=== PATIENT | male | born 1965 | race Caucasian/White ===

== ENCOUNTER → 2021-03-02 09:04 | Outpatient (BNVA) | payer OTHER, SELFPAY | PROVIDERS: PCP Student in an Organized Health Care Education/Training Program; Visit Provider Urology | DX: Z13.89 Encounter for screening for other disorder (principal) | CPT/HCPCS: 99202 ==

== ENCOUNTER → 2021-04-03 10:03 | Outpatient (BNVA) | payer OTHER, SELFPAY | PROVIDERS: PCP Student in an Organized Health Care Education/Training Program; Visit Provider Urology | DX: Z12.5 Encounter for screening for malignant neoplasm of prostate (principal); N52.01 Erectile dysfunction due to arterial insufficiency | CPT/HCPCS: 99212 ==

== ENCOUNTER → 2021-07-04 11:51 | Outpatient (BNVA) | payer OTHER, SELFPAY | PROVIDERS: PCP Student in an Organized Health Care Education/Training Program; Visit Provider Urology | DX: N52.01 Erectile dysfunction due to arterial insufficiency (principal) | CPT/HCPCS: 99212 ==

== ENCOUNTER 2022-03-29 13:19 | Outpatient (REF) | payer OTHER, SELFPAY | END 2022-03-29 13:20 | disposition home or self-care (01) | LOC: HO.LAB 13:19 | PROVIDERS: PCP Student in an Organized Health Care Education/Training Program; Visit Provider Urology | DX: Z12.5 Encounter for screening for malignant neoplasm of prostate (principal); N13.8 Other obstructive and reflux uropathy; N40.1 Benign prostatic hyperplasia with lower urinary tract symptoms | CPT/HCPCS: 36415; 84153 ==

== ENCOUNTER → 2022-04-12 15:52 | Outpatient (BNVA) | payer OTHER, SELFPAY | PROVIDERS: PCP Student in an Organized Health Care Education/Training Program; Visit Provider Urology | DX: Z13.89 Encounter for screening for other disorder (principal) ==

== ENCOUNTER → 2022-04-12 15:52 | Outpatient (BNVA) | payer OTHER, SELFPAY | PROVIDERS: PCP Student in an Organized Health Care Education/Training Program; Visit Provider Urology ==

== ENCOUNTER 2022-06-22 12:29 | Inpatient (IN) | payer OTHER, SELFPAY ==
--- NOTE | ~2022-06-22 | CT_ITS ---
EXAMINATION: CT ABDOMEN AND PELVIS WITH CONTRAST CLINICAL INFORMATION: Right upper quadrant/right lower quadrant pain. COMPARISON: None TECHNIQUE: Multidetector volumetric images were obtained from the superior aspect of the liver through the pubic symphysis following administration 85 mL of Omnipaque 350 intravenous contrast. Sagittal and coronal reformatted images were obtained on the technologist's workstation. Oral contrast: No This CT examination was performed using dose optimization techniques as appropriate, variously including the following: *Automated exposure control *Adjustment of mA and/or kV according to patient size (this includes techniques or standardized protocols for targeted exams where dose is matched to indication/reason for exam; i.e. extremities or head) *Use of iterative reconstruction technique DLP: 433 mGy-cm FINDINGS: LUNG BASES: Bibasilar atelectasis. The visualized cardiac structures are unremarkable. LIVER, GALLBLADDER, AND BILIARY TREE: The liver is normal in size, shape, and attenuation. Area of hypoattenuation along the falciform suggest focal fatty infiltration. No biliary ductal dilatation.. The gallbladder is unremarkable with no evidence of radiopaque gallstones, gallbladder wall thickening, or obvious pericholecystic inflammatory changes. PANCREAS: Unremarkable. SPLEEN: Unremarkable. ADRENAL GLANDS: Unremarkable. KIDNEYS AND URETERS: The kidneys are normal in size, shape, and attenuation. No hydronephrosis, hydroureter, or calculi seen. No perinephric stranding. BLADDER: Unremarkable. GASTROINTESTINAL TRACT: The stomach is unremarkable. Normal caliber small bowel. No obstruction. There is abnormal appearance of the appendix. The appendix measures 1.4 cm . Significant surrounding inflammation. There is free intraperitoneal air also present. No drainable fluid collection seen. The remainder of the colon is unremarkable. ABDOMINAL WALL: No significant hernia is appreciated. LYMPH NODES: Normal. VASCULAR: Normal caliber aorta with mild atherosclerotic calcification. PELVIC VISCERA: The prostate and seminal vesicles are unremarkable. OSSEOUS STRUCTURES: No acute or suspicious osseous abnormality. CT/CT abdomen pelvis w con IMPRESSION: Acute appendicitis. Associated perforation with free air present. Significant surrounding inflammation. This critical result was discussed with Luis Felipe Jones MD by telephone at 06/22/2022 11:30 PM and it was ascertained that the content and urgency of the report was understood at the time of direct communication. Fleischner guidelines were followed.
--- NOTE | ~2022-06-22 | CT_ITS ---
EXAMINATION: CT ABDOMEN AND PELVIS WITH CONTRAST CLINICAL INFORMATION: 57-year-old male with history of appendectomy for perforated appendicitis. COMPARISON: CT abdomen and pelvis from 06/22/2022. TECHNIQUE: Multidetector volumetric images were obtained from the superior aspect of the liver through the pubic symphysis following administration 85 mL of Omnipaque 350 intravenous contrast. Sagittal and coronal reformatted images were obtained on the technologist's workstation. Oral contrast: No This CT examination was performed using dose optimization techniques as appropriate, variously including the following: *Automated exposure control *Adjustment of mA and/or kV according to patient size (this includes techniques or standardized protocols for targeted exams where dose is matched to indication/reason for exam; i.e. extremities or head) *Use of iterative reconstruction technique DLP: 344 mGy-cm FINDINGS: LUNG BASES: Subsegmental atelectasis of lower lobes. LIVER: The liver has normal size, shape, and attenuation. No evidence of liver mass. GALLBLADDER AND BILIARY TREE: Gallbladder is without radiopaque stones, wall thickening or pericholecystic fluid. No dilated bile ducts. PANCREAS: Normal. No edema, pancreatic ductal dilatation or mass. SPLEEN: Normal. ADRENAL GLANDS: Normal. KIDNEYS AND URETERS: The kidneys have normal size and cortical thickness. No perinephric edema or fluid collection. Small amount of contrast has been excreted into the nondilated collecting systems. No urolithiasis or hydroureteronephrosis. BLADDER: Normal. No calculi or wall thickening. BOWEL AND PERITONEUM: Stomach is unremarkable. There is gas within the loops of small and large bowel, and small bowel measures up to 3.5 cm diameter. Findings are suggestive of mild ileus.. The appendix is surgically absent and drainage tube is positioned adjacent to the cecum. No pericecal fluid collection. A peripherally enhancing collection in the posterior cul-de-sac of the pelvis measures approximately 4 cm transverse, 2.6 cm AP and 3.2 cm craniocaudal. No pneumoperitoneum. ABDOMINAL WALL: Minimal protrusion of fat into the umbilicus. VASCULATURE: Atherosclerotic calcification of the abdominal aorta without aneurysm. LYMPH NODES: No pathologic sized lymph nodes in the abdomen or pelvis. No inguinal lymphadenopathy. PELVIC VISCERA: Unremarkable. SKELETAL: Unremarkable. CT/CT abdomen pelvis w con IMPRESSION: * Status post appendectomy. A 4 x 2.6 x 3.2 cm peripherally enhancing collection is present in the posterior cul-de-sac of the pelvis. This could represent a post-inflammatory collection or abscess. * Mild ileus.
[2022-06-22 13:20] VITALS: BP 122/69; PULSE 65; RESP 20; TEMP 36.7; O2SAT 97; BMI 22.4
[2022-06-22 20:24] LABS: Basophils Absolute Auto 0.1 X10*3/uL (0.0-0.2); Basophils Percent Auto 0.2 % (0-2); Eosinophils Absolute Auto 0.1 X10*3/uL (0.0-0.4); Eosinophils Percent Auto 0.2 % (0-4); Hematocrit 49.3 % (42.0-52.0); Hemoglobin 16.8 g/dl (14.0-18.0); Imm Gran Abs Auto 0.07 X10*3/uL (0.00-0.03); Imm Gran Pct Auto 0.3 % (0.0-0.4); Lymphocytes Percent Auto 10.1 % (20-40); MANUAL DIFF FLAG SCAN; Mean Corpuscular HGB Conc 34.1 g/dl (31.0-36.0); Mean Corpuscular Hemoglobin 29.9 pg (27.0-33.0); Mean Corpuscular Volume 87.9 fL (80.0-98.0); Mean Platelet Volume 10.7 fL (9.4-12.4); Monocytes Absolute Auto 1.9 X10*3/uL (0.1-1.2); Monocytes Percent Auto 9.6 % (2-11); Neutrophils Absolute Auto 15.9 x10*3/uL (2.0-8.3); Neutrophils Percent Auto 79.6 % (45-73); Platelet Count 199 X10*3/uL (160-400); Red Blood Count 5.61 X10*6/uL (4.60-5.80); Red Cell Distribution Width 15.1 % (11.0-16.0); SCAN SMEAR FLAG 1; White Blood Count 20.1 X10*3/uL (4.8-10.8)
[2022-06-22 20:25] LABS: Appearance Urine CLEAR; Color Urine YELLOW; Glucose Urine UA NEG (NEG); Leukocyte Esterase Urine NEG (NEG); Nitrite Urine NEG (NEG); Specific Gravity - Urine 1.015 (1.005-1.025); UACC Culture Trigger NO; Urine Blood 1+ (NEG); Urine Ketones NEG (NEG); Urine Protein NEG (NEG-TRACE)
[2022-06-22 20:38] LABS: Alanine Aminotransferase 12 U/L (0-40); Albumin Level 3.9 g/dL (3.5-5.0); Alkaline Phosphatase 92 U/L (39-117); Anion Gap 14 (12-20); Aspartate Amino Transferase 13 U/L (5-37); Bilirubin Total 0.8 mg/dL (0.0-1.0); Blood Urea Nitrogen 5 mg/dL (9-16); Calcium 8.8 mg/dL (8.4-10.2); Carbon Dioxide 25 mmol/L (22-29); Chloride 103 mmol/L (96-108); Creatinine Clr Calc Pharmacy 94.7; Estimated Glomerular Filt Rate > 60; Glucose Random 109 mg/dL (60-115); Lipase 5 U/L (8-78); Potassium 4.1 mmol/L (3.3-5.1); Sodium 138 mmol/L (135-145); Total Protein 6.6 g/dL (6.5-8.0)
[2022-06-22 20:48] LABS: Squamous Epithelial Cell Urine TRACE /LPF; WBC Urine 0 /HPF (0-4)
[2022-06-22 20:49] LABS: Amorphous Sediment Urine 1+ /LPF; Mucus Urine TRACE /LPF
[2022-06-22 20:50] LABS: SLIDE REVIEW VERIFIED
--- NOTE | 2022-06-22 22:03 | ED.ABDPAIN ---
HPI - Abdominal Pain General Chief Complaint: Abdominal Pain Stated Complaint: abd pain/dizziness/chills Time Seen by Provider: 06/22/22 21:14 Source: patient Mode of arrival: ambulatory Limitations: language barrier (Occitan speaking only) History of Present Illness HPI narrative: 57-year-old male who presents emergency department for evaluate of abdominal pain which began yesterday at 09:30 hours. Patient states that he woke up yesterday morning at 07:00 hours and felt fine, had some coffee and ate no breakfast. He states that at 09:30 hours he had a gradual onset of upper abdominal pain. He states the pain has been a constant, burning sensation since onset, the pain got progressively worse and is now 10/10. He states this is 1st episode of this type of abdominal pain. He states he was able to eat lunch and dinner yesterday but has had no appetite today. He has been drinking fluid throughout the day. States that his last bowel movement was 3 days prior and was normal. He denied frequency, urgency or dysuria. He states that he had shaking chills, he has had an occasional cough when he smokes cigarettes. The patient states that he had a myocardial infarction 04/30/2022 and was treated at [facility]. Related Data Home Medications Medication Instructions Recorded Confirmed calcium carbonate 500 mg-vitamin 1 tab PO BID 03/02/21 07/04/21 D3 5 mcg (200 unit) tablet Previous Rx's Medication Instructions Recorded tadalafil 5 mg tablet 5 mg PO DAILY PRN sexual activity 07/04/21 90 days #90 tabs Allergies Allergy/AdvReac Type Severity Reaction Status Date / Time No Known Allergies Allergy Verified 07/04/21 11:52 none Allergy Unknown Unknown Uncoded 04/03/21 10:26 Review of Systems Review of Systems Yes all other systems are reviewed and are negative FOR[facility]LY [facility], [facility] Past Medical History FOR[facility], [facility] Narrative: Past medical history: Myocardial infarction 04/30/2022-treated at [facility]. Past surgical history: None. Social history: He smokes 1/2 pack of cigarettes per day times 46 years. Denies alcohol use. He states that he smokes marijuana occasionally denies any other drug use. Medical History (Updated 06/23/22 @ 00:03 by Lius Felipe Jones MD) Tobacco abuse Family History Family History Father Prostate cancer Social History Social History Advance Directives: No Advance Directives Information Provided: No Physical Exam ED Vital Signs: Vital Signs - 24 hr 06/22/22 13:20 06/22/22 22:19 06/22/22 22:28 Temperature 98.1 F 98.4 F Pulse Rate 65 61 Respiratory Rate 20 18 16 Blood Pressure 122/69 101/47 L Pulse Oximetry 97 97 Oxygen Delivery Method Room Air Room Air BMI result Body Mass Index 22.4 Const Other: Awake, alert, male patient, pleasant, cooperative does not appear to be in distress, BMI 22.4 HENMT Head: Yes normal to inspection, Yes normocephalic and Yes atraumatic Ears: external ears normal General nose exam: Normal external nose present Face and sinus: Yes normal facial exam Mouth: Normal oral and palatal mucosa present Throat: Yes posterior oropharynx normal Eyes General: appearance normal, both eyes and all related structures Pupils: Equal, round and reactive pupils present Neck Neck: Yes normal visual inspection, Yes no lymphadenopathy, Yes trachea midline and Yes supple Chest Chest palpation & inspection: normal inspection of the chest and normal palpation of entire chest wall Resp Effort & Inspection: normal respiratory effort and able to speak in complete sentences Auscultation: clear to auscultation bilaterally Cardio Rate: regular rate Rhythm: regular rhythm Heart sounds: S1 normal heart sound present, S2 normal heart sound present and no murmurs GI Inspection: Yes normal to inspection Palpation (GI): Soft to palpation, Tenderness to palpation present (GI) (Mild diffuse tenderness) in the RLQ (Moderate) and in the RUQ (Moderate) and no guarding Auscultation: normal bowel sounds General: Yes no CVA tenderness Back/Spine/Pelvis Back: no CVA tenderness Skin General skin exam: no rashes or lesions noted Neuro Cranial nerves: Yes CN's II-XII intact bilaterally and Yes Equal, round and reactive pupils present Cognition (Neuro): normal cognition Motor exam (neuro): 5/5 motor strength present throughout Extrem General: Yes normal to inspection Psych Appearance: grossly normal Speech and movement: Normal speech and movement present Affect: normal affect Attitude: cooperative Thought process: Normal thought process present Thought content: Normal thought content present Course Course Course Narrative: 57-year-old male who presents emergency department for evaluation of gradual onset of abdominal pain which started yesterday at 09:30 hours, the pain progressed in severity it is now 10/10. Patient has been able to drink fluid but he has had no appetite and has had no food to eat today. Patient's examination did revealed mild diffuse abdominal tenderness with moderate right upper quadrant and left lower quadrant tenderness. Patient did have a laboratory evaluation [place] [address] otherwise was unremarkable. I did order a CT scan of the abdomen pelvis with IV contrast (given his low BMI help the contrast was indicated). Patient will be treated with normal saline IV x1 L. The patient was given Toradol 15 mg IV, morphine 4 mg IV and Zofran 4 mg IV for his pain. 2340: Radiology evaluation: CT scan of the abdomen pelvis with IV contrast radiology reading as follows: IMPRESSION: Acute appendicitis. Associated perforation with free air present. Significant surrounding inflammation. This critical result was discussed with Luis Felipe Jones MD by telephone at 06/22/2022 11:30 PM and it was ascertained that the content and urgency of the report was understood at the time of direct communication. Fleischner guidelines were followed. Dictated By:Anival Pineda MD I did discuss the patient's presentation, laboratory findings and CT scan findings with the covering surgeon, Dr. Ross and he will admit the patient to his service. Patient's pain did improve with the above treatment but is still present. Patient was ordered to get a another dose of morphine 4 mg IV. The patient did have myocardial infarction was treated at [facility]. We will attempt to get the records from [facility]. MDM - Abdominal Pain Lab Data Result diagrams: 06/22/22 20:16 06/22/22 20:16 Labs: Lab Results 06/22/22 06/22/22 06/22/22 Range/Units 20:16 20:16 20:16 WBC 20.1 H (4.8-10.8) X10*3/uL RBC 5.61 (4.60-5.80) X10*6/uL Hgb 16.8 (14.0-18.0) g/dl Hct 49.3 (42.0-52.0) % MCV 87.9 (80.0-98.0) fL MCH 29.9 (27.0-33.0) pg MCHC 34.1 (31.0-36.0) g/dl RDW 15.1 (11.0-16.0) % Plt Count 199 (160-400) X10*3/uL MPV 10.7 (9.4-12.4) fL Immature Gran % (Auto) 0.3 (0.0-0.4) % Neut % (Auto) 79.6 H (45-73) % Lymph % (Auto) 10.1 L (20-40) % [place] % (Auto) 9.6 (2-11) % Eos % (Auto) 0.2 (0-4) % Baso % (Auto) 0.2 (0-2) % Lymph # (Auto) 2.0 (1.2-4.9) X10*3/uL [place] # (Auto) 1.9 H (0.1-1.2) X10*3/uL Eos # (Auto) 0.1 (0.0-0.4) X10*3/uL Baso # (Auto) 0.1 (0.0-0.2) X10*3/uL Abs Immat Gran (auto) 0.07 H (0.00-0.03) X10*3/uL Absolute Neuts (auto) 15.9 H (2.0-8.3) x10*3/uL Absolute Nucleated RBC 0.000 (0.0-0.012) X10*3/uL Nucleated RBC % (auto) 0.0 (0.0-0.2) /100WBC Smear Tech's Comments VERIFIED Sodium 138 (135-145) mmol/L Potassium 4.1 (3.3-5.1) mmol/L Chloride 103 (96-108) mmol/L Carbon Dioxide 25 (22-29) mmol/L Anion Gap 14 (12-20) BUN 5 L (9-16) mg/dL Creatinine 0.77 (0.5-1.4) mg/dL Estim Creat Clear Calc 94.7 Estimated GFR > 60 Random Glucose 109 (60-115) mg/dL Calcium 8.8 (8.4-10.2) mg/dL Total Bilirubin 0.8 (0.0-1.0) mg/dL AST 13 (5-37) U/L ALT 12 (0-40) U/L Alkaline Phosphatase 92 (39-117) U/L Total Protein 6.6 (6.5-8.0) g/dL Albumin 3.9 (3.5-5.0) g/dL Lipase 5 L (8-78) U/L Urine Color YELLOW Urine Appearance CLEAR Urine pH 6.0 (5.0-8.0) Ur Specific [place] 1.015 (1.005-1.025) Urine Protein NEG (NEG-TRACE) MG/DL Urine Glucose (UA) NEG (NEG) MG/DL Urine Ketones NEG (NEG) MG/DL Urine Blood 1+ H (NEG) Urine Nitrite NEG (NEG) Ur Leukocyte Esterase NEG (NEG) Urine RBC 1-4 (0) /HPF Urine WBC 0 (0-4) /HPF Ur Squamous Epith Cells TRACE /LPF Amorphous Sediment 1+ /LPF Urine Bacteria NONE /LPF Urine Mucus TRACE /LPF Discharge Plan Discharge Clinical Impression: Perforated appendix Patient Disposition: Admitted As Inpatient
[2022-06-22 22:19] VITALS: RESP 18
[2022-06-22] MEDS: Ketorolac Tromethamine 15 MG/ML VIAL IVPUSH (22:19)
[2022-06-22] MEDS: ondansetron HCL 4 MG/2 ML VIAL IVPUSH (22:19)
[2022-06-22] MEDS: Morphine Sulfate 4 MG/ML CARTRIDGE IVPUSH (22:19)
[2022-06-22] MEDS: 0.9 % Sodium Chloride 1,000 ML 999 ML IV (22:20)
[2022-06-22 22:28] VITALS: BP 101/47; PULSE 61; RESP 16; TEMP 36.9; O2SAT 97
[2022-06-22] MEDS: iohexoL 350 MG/ML 100 ML INFUS..BTL IV (22:59)
--- NOTE | 2022-06-22 23:59 | PM.HPGS ---
History of Present Illness History of Present Illness Date of Service: 06/23/22 Chief complaint: appendicitis Narrative: Jamie Tesfaye is a 57 year old male with NM 2 months ago & cardiac cath at [facility] with acute appy, possibly perforated. The patient is seen with the help of 1 of the ER nurses who is a certified furniture duster. The patient reports abdominal pain that started roughly yesterday, possibly earlier and localized to the right side. He also notes his NM and that he is currently on aspirin given his stent. He denies any chest pain, difficulty breathing or shortness of breath. Review of Systems Review of Systems: Yes all other systems are reviewed and are negative Constitutional: Constitutional: Reports as per [facility] Past Medical History Medical History Tobacco abuse Family History Family History Father Prostate cancer Social History Social History Advance Directives: No Advance Directives Information Provided: No Meds Allergies Allergy/AdvReac Type Severity Reaction Status Date / Time No Known Allergies Allergy Verified 07/04/21 11:52 none Allergy Unknown Unknown Uncoded 04/03/21 10:26 Active Medications: Current Medications Acetaminophen (Acetaminophen 325 Mg Tablet) 650 mg PO Q6H PRN PRN Reason: Pain, Mild (Pain Scale 1-3) Heparin Sodium (Porcine) (Heparin Sodium,Porcine 5,000 Unit/Ml Vial) 5,000 unit SUBCUT Q12H [facility] Potassium Chloride/Sodium Chloride () 20 meq in 1,000 mls @ 100 mls/hr IVCONT .Q10H [facility] Home Medications Medication Instructions Recorded Confirmed Last Taken Type aspirin 81 mg tablet,delayed 1 tab PO DAILY 06/23/22 06/23/22 Unknown History release atorvastatin 40 mg tablet 1 tab PO DAILY 06/23/22 06/23/22 Unknown History calcium carbonate 500 mg-vitamin 1 tab PO BID 06/23/22 06/23/22 Unknown History D3 5 mcg (200 unit) tablet (Oyster Shell Calcium-Vitamin D3) carvedilol 6.25 mg tablet 1 tab PO BID 06/23/22 06/23/22 Unknown History clopidogrel 75 mg tablet 1 tab PO DAILY 06/23/22 06/23/22 Unknown History ferrous sulfate 325 mg (65 mg 1 tab PO QAM 06/23/22 06/23/22 Unknown History iron) tablet (FeroSul) multivitamin 1 tab PO DAILY 06/23/22 06/23/22 Unknown History nicotine 21 mg/24 hr daily 1 patch topical DAILY 06/23/22 06/23/22 Unknown History transdermal patch sacubitril 24 mg-valsartan 26 mg 1 tab PO BID 06/23/22 06/23/22 Unknown History tablet (Entresto) tadalafil 5 mg tablet 1 tab PO DAILY PRN Sexual Activity 06/23/22 06/23/22 Unknown History Physical Exam Vital Signs: Vital Signs: Last Vital Signs Temp 98.4 F 06/22/22 22:28 Pulse 61 06/22/22 22:28 Resp 16 06/22/22 22:28 BP 101/47 L 06/22/22 22:28 Pulse Ox 97 06/22/22 22:28 O2 Del Method 06/22/22 22:28 BMI result Body Mass Index 22.4 The patient is non-toxic & in good spirits NC/AT, PERRLA, EOMI Mood, affect & judgment all appear appropriate Sclera anicteric conjunctiva pink and moist Oropharynx is clear with no aphthous ulcers, Mallampati class 2, mucous membranes moist Neck is supple with no masses, adenopathy or bruits Thyroid is nontender and free of dominant masses Heart is regular, normal S1-S2 no rubs or murmurs Lungs are clear and equal anteriorly with no audible wheezing, rubs or dullness to percussion No CVA tenderness present Abdomen is overweight with no demonstrable hernias. He has right-sided abdominal pain with peritoneal irritation to percussion No HSM, rebound, rigidity, guarding, masses or bruits are present. Rectal exam is deferred Skin has good turgor and is free of rashes Extremities free of cyanosis clubbing edema Results Results Labs: Short CBC 06/22/22 Range/Units 20:16 WBC 20.1 H (4.8-10.8) X10*3/uL Hgb 16.8 (14.0-18.0) g/dl Hct 49.3 (42.0-52.0) % Plt Count 199 (160-400) X10*3/uL BMP 06/22/22 20:16 Sodium 138 Potassium 4.1 Chloride 103 Carbon Dioxide 25 BUN 5 L Creatinine 0.77 Calcium 8.8 Liver Function 06/22/22 Range/Units 20:16 Total Bilirubin 0.8 (0.0-1.0) mg/dL AST 13 (5-37) U/L ALT 12 (0-40) U/L Alkaline Phosphatase 92 (39-117) U/L Albumin 3.9 (3.5-5.0) g/dL Urine 06/22/22 Range/Units 20:16 Urine Color YELLOW Urine Appearance CLEAR Urine pH 6.0 (5.0-8.0) Ur Specific [place] 1.015 (1.005-1.025) Urine Protein NEG (NEG-TRACE) MG/DL Urine Glucose (UA) NEG (NEG) MG/DL Abdomen CT scan report/results: report reviewed and image reviewed CT scan - pelvis: report reviewed and image reviewed Assessment and Plan (1) Appendicitis: Status: Acute (2) CAD (coronary artery disease): Status: Acute (3) Tobacco abuse: Status: Acute Plan NPO, IVF, bowel rest, Abx For OR, lap appy in a.m.. Please obtain [facility] records re: NM SCDs, SQ heparin, Void bladder on-call to OR With the help of the furniture duster, I explained options for appendectomy versus medical management. The inherent risks of bleeding, for which she is at a greater risk because of his Plavix; infection, need for another procedure in the event of a complication or unexpected pathology; risk of cardiopulmonary compromise because of his recognized or unrecognized comorbidities were also reviewed. The patient seemed understand his options and was also offered that the furniture duster would reach the consent line by line, however he declined and gave informed consent to proceed. Quality Stroke Does the patient have a stroke diagnosis?: No VTE Prior VTE?: No VTE Risk Level:: Surgical - high VTE Device Contraindication: N/A - Device Ordered VTE Drug Contraindication: N/A - Med Ordered Procedures Date of Service Date of Service: 06/23/22
[2022-06-23] VITALS (14 sets, daily range): BP systolic 97–125; BP diastolic 56–72; PULSE 70–89; RESP 14–20; TEMP 36.9–37.4; O2SAT 92–97
[2022-06-23] MEDS: Morphine Sulfate 4 MG/ML CARTRIDGE IVPUSH (00:47)
[2022-06-23] MEDS: Heparin Sodium,Porcine 5,000 UNIT/ML VIAL 5000 UNIT SUBCUT (00:48)
[2022-06-23 03:05] LABS: COVID-19 Test Negative (Negative)
[2022-06-23] MEDS: Piperacillin Sodium/Tazobactam 4.5 GM in 0.9 % Sodium Chloride 100 ML IV (04:21)
[2022-06-23 04:25] LABS: MANUAL DIFF FLAG NO
[2022-06-23 04:26] LABS: Basophils Percent Auto 0.2 % (0-2); Eosinophils Percent Auto 0.2 % (0-4); Hematocrit 48.4 % (42.0-52.0); Hemoglobin 16.3 g/dl (14.0-18.0); Imm Gran Abs Auto 0.03 X10*3/uL (0.00-0.03); Imm Gran Pct Auto 0.3 % (0.0-0.4); Lymphocytes Absolute Auto 1.1 X10*3/uL (1.2-4.9); Mean Corpuscular HGB Conc 33.7 g/dl (31.0-36.0); Mean Corpuscular Hemoglobin 29.9 pg (27.0-33.0); Mean Corpuscular Volume 88.6 fL (80.0-98.0); Monocytes Absolute Auto 0.7 X10*3/uL (0.1-1.2); Monocytes Percent Auto 6.5 % (2-11); Neutrophils Percent Auto 82.8 % (45-73); Platelet Count 145 X10*3/uL (160-400); Red Blood Count 5.46 X10*6/uL (4.60-5.80); Red Cell Distribution Width 15.3 % (11.0-16.0); White Blood Count 10.9 X10*3/uL (4.8-10.8)
[2022-06-23] MEDS: HYDROmorphone HCl 0.5 MG/0.5 ML SYRINGE IVPUSH ×2 (04:28→15:37)
[2022-06-23 04:39] LABS: Lactic Acid 1.2 mmol/L (0.5-2.0)
[2022-06-23 04:47] LABS: Anion Gap 14 (12-20); Blood Urea Nitrogen 8 mg/dL (9-16); Calcium 8.2 mg/dL (8.4-10.2); Carbon Dioxide 22 mmol/L (22-29); Chloride 107 mmol/L (96-108); Creatinine Clr Calc Pharmacy 102.7; Estimated Glomerular Filt Rate > 60; Glucose Random 99 mg/dL (60-115); Potassium 4.3 mmol/L (3.3-5.1); Sodium 139 mmol/L (135-145)
--- NOTE | 2022-06-23 06:11 | PHA.MEDREC ---
Pharmacy Consult ? Medication Reconciliation Pharmacy has completed the medication reconciliation. Reviewed med rec completed by nursing.
--- NOTE | 2022-06-23 09:19 | MHC.CM.PN ---
CM MET WITH PT WITH THE ASSISTANCE OF [facility] INFORMATION ENGINEER PT REPORTS HE LIVES ALONE AND IS INDEPENDENT WITH CARE PT DENIES USE OF DME OR HOME SERVICES PT REPORTS HE IS COVID VACCINATED AND HAS HAD ONE BOOSTER PT CONFIRMS HIS PCP IS [facility] PT DOES NOT HAVE A HCP AND DECLINES TO COMPLETE ONE TODAY CURRENT DC PLAN IS HOME WITH NO SERVICES PT WILL ARRANGE TRANSPORT
--- NOTE | 2022-06-23 09:21 | P.OP_ITS ---
Operative Note Operative Note Date of Service: 06/23/22 Narrative: Preop diagnosis: [Appendicitis, possible perforated on CT] Postop diagnosis: [perforated appendicitis with interloop abscesses] Procedure: [laparoscopic appendectomy] Surgeon: Manoj Ross MD Assist: [none] Anesthesia: [GET; Ropivicaine 0.5%] Estimated blood loss: [3cc] Specimen: [1) peritoneal fluid; 2) appendix with gross perforation] Drain: KEREN in right iliac fossa & right gutter Intraoperative findings: [the appendix was partially retroperitoneal & perforated; turbid fluid with inflammatory peel was present in pelvis. Interloop abscess were lysed with blunt dissection & irrigation] Indications: [The patient is a 57-year-old gentleman who experienced an [place] and had a drug-eluting stent placed at [facility] in late April. He is on Plavix and aspirin and developed abdominal pain. He presented with a leukocytosis to [address] that was concerning for perforated appendicitis. He was admitted, placed on bowel rest and IV antibiotics and consented for appendectomy this morning with the help of an jumbo operator from the emergency department. The other option of transfer to [facility] or continued medical management was offered but declined by the patient. The inherent risks of bleeding, infection, need for open surgery, need for another procedure in the event of a surgical complication or unexpected pathology was all reviewed in seemed to be understood. The patient seemed to have his questions answered and also understand that his anticoagulants because of his stent put him at a greater risk for bleeding problems.] Procedure: [The patient was identified in the preoperative holding area and again in the operating room. An appropriate time-out was performed. The patient had voided bladder composition weatherboard installer, received subcu heparin and antibiotics per protocol. Sequential compression stockings were placed. The patient was induced in general endotracheal anesthesia administered with excellent effect. The abdomen was widely prepped and draped in the usual manner for surgery. Preemptive local was used at all trocar insertion sites. The abdomen was accessed using a Veress needle in the supraumbilical midline. Stab incision was made, Veress needle inserted without incident, an appropriate drop test performed and a pneumoperitoneum of 15 mmHg was obtained using carbon dioxide. Opening pressures were 6 mmHg. Next, the abdomen was accessed with a 30 degree/5 mm laparoscoped over Optiview trocar technique without incident. In examining the Veress needle, no evidence of injury was present. The remaining trocars were placed under direct laparoscopic vision with preemptive analgesia. The patient was then positioned in Trendelenburg, banked left. Grossly turbid peritoneal fluid was identified in the right pericolic gutter. This was aspirated using the suction equity research analyst and sent for Gram stain and culture. The appendix was identified and tracked down to the cecum, in the proximal appendix a perforation and fecalith were noted. The remain appendix dove retroperitoneally in the pelvis. A window was made in the mesoappendix and the mesoappendix carefully dissected using the 5 mm LigaSure [place] tip. An Endo-IRIS 30 stapler, purple load, was placed across the appendiceal base on the cecum the and fired with good hemostasis and closure. The specimen was placed in an Endo-Catch bag and delivered through the 12 mm port in the left lower quadrant. Operative field was irrigated and inspected for hemostasis which was good. A KEREN drain was placed through a right lower quadrant abdominal stab incision after it was cut to size and laid in the right iliac fossa, partially in the pelvis and partially in the right pericolic gutter. The remaining irrigation was aspirated. 2 L were required until the irrigant ran clear. Patient was returned to neutral position, the abdomen deflated and the trocars removed. 12 mm fascia was closed with 0- Polysorb and skin closed with 4-0 Monocryl subcuticular sutures. The abdomen was washed and dried, Mastisol and Steri-Stri ps applied followed by Band-Aids. Patient tolerated the procedure well and was sent to the recovery in stable condition. All sponge instrument counts were correct x2.
--- NOTE | 2022-06-23 12:06 | ECG_ITS ---
Test Reason : preop Blood Pressure : / mmHG Vent. Rate : 080 BPM Atrial Rate : 080 BPM P-R Int : 144 ms QRS Dur : 090 ms QT Int : 386 ms P-R-T Axes : 068 053 078 degrees QTc Int : 445 ms Normal sinus rhythm Minimal voltage criteria for LVH, may be normal variant ( [place] product ) Anterior infarct , age undetermined T wave abnormality, consider lateral ischemia T wave abnormality, consider anterior ischemia Abnormal ECG No previous ECGs available Clinical correlation required Referred By: Sandra Purcell Electronically Signed By:HOLLAND MARSH
--- NOTE | 2022-06-23 12:10 | P.CONAN_ITS ---
[facility] Active Problems Active Problems: All Active Problems (Updated 06/23/22 @ 00:03 by Luis Felipe Jones MD) Perforated appendix (Acute) Tobacco abuse (Acute) CAD (coronary artery disease) (Acute) Appendicitis (Acute) Screening PSA (prostate specific antigen) (Acute) Hypogonadism (Acute) Erectile dysfunction due to arterial insufficiency (Acute) Past Medical History Medical History Tobacco abuse Family History Family History Father Prostate cancer Family history of problems with anesthesia: No Surgical History History of Problems with Anesthesia: No Social History Social History Patient Tobacco Use Status: Current everyday Tobacco user Tobacco use type: Cigarette Cigarettes Per Day: 15.0 service: No Current occupational status: employed Meds Allergies Allergy/AdvReac Type Severity Reaction Status Date / Time No Known Allergies Allergy Verified 07/04/21 11:52 none Allergy Unknown Unknown Uncoded 04/03/21 10:26 Active Medications: Current Medications Acetaminophen (Acetaminophen 325 Mg Tablet) 650 mg PO Q6H PRN PRN Reason: Pain, Mild (Pain Scale 1-3) Atorvastatin Calcium (Atorvastatin Calcium 40 Mg Tablet) 40 mg PO DAILY DAKOTA Carvedilol (Carvedilol 6.25 Mg Tablet) 6.25 mg PO BID DAKOTA; Protocol Hydromorphone HCl (Hydromorphone Hcl 0.5 Mg/0.5 Ml Syringe) 0.5 mg IVPUSH Q2H PRN; Protocol PRN Reason: Pain, Severe (Pain Scale 7-10) Last Admin: 06/23/22 04:28 Dose: 0.5 mg Potassium Chloride/Sodium Chloride () 20 meq in 1,000 mls @ 100 mls/hr IVCONT .Q10H DAKOTA Last Admin: 06/23/22 01:00 Dose: 100 mls/hr Piperacillin Sod/Tazobactam (Sod 3.375 gm/ Sodium Chloride) 50 mls @ 100 mls/hr IV Q6H DAK[place] Ondansetron HCl (Ondansetron Hcl 4 Mg/2 Ml Vial) 4 mg IVPUSH Q6H PRN PRN Reason: Nausea and Vomiting Sacubitril/Valsartan (Sacubitril/Valsartan 24/ 1 Tab Tablet) 1 tab PO BID DAKOTA; Protocol Home Medications Medication Instructions Recorded Confirmed Last Taken Type aspirin 81 mg tablet,delayed 1 tab PO DAILY 06/23/22 06/23/22 Unknown History release atorvastatin 40 mg tablet 1 tab PO DAILY 06/23/22 06/23/22 Unknown History calcium carbonate 500 mg-vitamin 1 tab PO BID 06/23/22 06/23/22 Unknown History D3 5 mcg (200 unit) tablet (Oyster Shell Calcium-Vitamin D3) carvedilol 6.25 mg tablet 1 tab PO BID 06/23/22 06/23/22 Unknown History clopidogrel 75 mg tablet 1 tab PO DAILY 06/23/22 06/23/22 Unknown History ferrous sulfate 325 mg (65 mg 1 tab PO QAM 06/23/22 06/23/22 Unknown History iron) tablet (FeroSul) multivitamin 1 tab PO DAILY 06/23/22 06/23/22 Unknown History nicotine 21 mg/24 hr daily 1 patch topical DAILY 06/23/22 06/23/22 Unknown History transdermal patch sacubitril 24 mg-valsartan 26 mg 1 tab PO BID 06/23/22 06/23/22 Unknown History tablet (Entresto) tadalafil 5 mg tablet 1 tab PO DAILY PRN Sexual Activity 06/23/22 06/23/22 Unknown History Exam Exam Date and Time: June 23, 2022 1210 Height,Weight and Vital Signs: Height 5 ft 7 in Weight 64.864 kg Last Vital Signs Temp 98.8 F 06/23/22 11:10 Pulse 78 06/23/22 11:10 Resp 16 06/23/22 11:10 BP 114/63 06/23/22 11:10 Pulse Ox 95 06/23/22 11:10 O2 Del Method 06/23/22 11:10 Pertinent Lab Results Pertinent Lab Results: Laboratory Tests 06/22/22 06/22/22 06/22/22 20:16 20:16 20:16 WBC 20.1 H RBC 5.61 Hgb 16.8 Hct 49.3 MCV 87.9 MCH 29.9 MCHC 34.1 RDW 15.1 Plt Count 199 MPV 10.7 Immature Gran % (Auto) 0.3 Neut % (Auto) 79.6 H Lymph % (Auto) 10.1 L [place] % (Auto) 9.6 Eos % (Auto) 0.2 Baso % (Auto) 0.2 Lymph # (Auto) 2.0 [place] # (Auto) 1.9 H Eos # (Auto) 0.1 Baso # (Auto) 0.1 Abs Immat Gran (auto) 0.07 H Absolute Neuts (auto) 15.9 H Absolute Nucleated RBC 0.000 Nucleated RBC % (auto) 0.0 Smear Tech's Comments VERIFIED Sodium 138 Potassium 4.1 Chloride 103 Carbon Dioxide 25 Anion Gap 14 BUN 5 L Creatinine 0.77 Estim Creat Clear Calc 94.7 Estimated GFR > 60 Random Glucose 109 Lactic Acid Calcium 8.8 Total Bilirubin 0.8 AST 13 ALT 12 Alkaline Phosphatase 92 Total Protein 6.6 Albumin 3.9 Lipase 5 L Urine Color YELLOW Urine Appearance CLEAR Urine pH 6.0 Ur Specific [place] 1.015 Urine Protein NEG Urine Glucose (UA) NEG Urine Ketones NEG Urine Blood 1+ H Urine Nitrite NEG Ur Leukocyte Esterase NEG Urine RBC 1-4 Urine WBC 0 Ur Squamous Epith Cells TRACE Amorphous Sediment 1+ Urine Bacteria NONE Urine Mucus TRACE COVID-19 (RACHEL) COVID-19 Clin Com 06/23/22 06/23/22 06/23/22 02:46 04:16 04:16 WBC 10.9 H RBC 5.46 Hgb 16.3 Hct 48.4 MCV 88.6 MCH 29.9 MCHC 33.7 RDW 15.3 Plt Count 145 L D MPV 11.0 Immature Gran % (Auto) 0.3 Neut % (Auto) 82.8 H Lymph % (Auto) 10.0 L [place] % (Auto) 6.5 Eos % (Auto) 0.2 Baso % (Auto) 0.2 Lymph # (Auto) 1.1 L [place] # (Auto) 0.7 Eos # (Auto) 0.0 Baso # (Auto) 0.0 Abs Immat Gran (auto) 0.03 Absolute Neuts (auto) 9.0 H Absolute Nucleated RBC 0.000 Nucleated RBC % (auto) 0.0 Smear Tech's Comments Sodium 139 Potassium 4.3 Chloride 107 Carbon Dioxide 22 Anion Gap 14 BUN 8 L D Creatinine 0.71 Estim Creat Clear Calc 102.7 Estimated GFR > 60 Random Glucose 99 Lactic Acid Calcium 8.2 L D Total Bilirubin AST ALT Alkaline Phosphatase Total Protein Albumin Lipase Urine Color Urine Appearance Urine pH Ur Specific [place] Urine Protein Urine Glucose (UA) Urine Ketones Urine Blood Urine Nitrite Ur Leukocyte Esterase Urine RBC Urine WBC Ur Squamous Epith Cells Amorphous Sediment Urine Bacteria Urine Mucus COVID-19 (RACHEL) Negative COVID-19 Clin Com See Note 06/23/22 04:16 WBC RBC Hgb Hct MCV MCH MCHC RDW Plt Count MPV Immature Gran % (Auto) Neut % (Auto) Lymph % (Auto) [place] % (Auto) Eos % (Auto) Baso % (Auto) Lymph # (Auto) [place] # (Auto) Eos # (Auto) Baso # (Auto) Abs Immat Gran (auto) Absolute Neuts (auto) Absolute Nucleated RBC Nucleated RBC % (auto) Smear Tech's Comments Sodium Potassium Chloride Carbon Dioxide Anion Gap BUN Creatinine Estim Creat Clear Calc Estimated GFR Random Glucose Lactic Acid 1.2 Calcium Total Bilirubin AST ALT Alkaline Phosphatase Total Protein Albumin Lipase Urine Color Urine Appearance Urine pH Ur Specific [place] Urine Protein Urine Glucose (UA) Urine Ketones Urine Blood Urine Nitrite Ur Leukocyte Esterase Urine RBC Urine WBC Ur Squamous Epith Cells Amorphous Sediment Urine Bacteria Urine Mucus COVID-19 (RACHEL) COVID-19 Clin Com Airway Mallampati Class: II TM Dist: >3cm Neck ROM: Full Denture: Upper Assessment and Plan Assessment Anesthesia Assessment: Anesthesia Plan Discussed, Smoking Cess. Discussed and Chart Reviewed Final Anesthetic Review Family History of Problems with Anesthesia: No History of Problems with Anesthesia: No NPO: Yes ASA Class: III and Emergency Final Preanesthetic Review: No Changes in Pt Med Stat, Meds/Allgs Chart Reviewed, Consent Obtained/Reviewed and Anes Risks/Benef Reviewed Patient Risk: Intermediate Procedure Risk: Intermediate Anesthetic Plan Anesthetic Plan: GA Disposition: Standard PACU
--- NOTE | 2022-06-23 12:10 | HO.PM.IMCN ---
History of Present Illness Data of Consult Service Date: 06/23/22 Primary Care Provider: June Champion MD HPI Reason for consult: CAD 57yo M admitted to surgery service for perforated acute appendicitis, going to OR for emergent appendectomy. PMHx notable for anterior STEMI for which he was [place] [facility]. A BARBRA was placed for a 100% LAD occlusion. He was started on DAPT [ASA + clopidogrel]. Echo showed ischemic cardiomyopathy with reduced LVEF of 20-30%. He was started on Entresto and carvedilol for neurohormonal modulation. He quit using cocaine and was placed on nicotine replacement but continues to smoke 3/4 ppd. Currently denies chest pain, palpitations, lightheadedness, edema, or dyspnea. Endorses abd pain. Review of Systems Review of Systems: Yes all other systems are reviewed and are negative [facility] Medical History Cocaine abuse Coronary artery disease HFrEF (heart failure with reduced ejection fraction) Ischemic cardiomyopathy Tobacco abuse Family History Father Prostate cancer Social History Patient Tobacco Use Status: Current everyday Tobacco user Tobacco use type: Cigarette Cigarettes Per Day: 15.0 service: No Current occupational status: employed Meds Allergies Allergy/AdvReac Type Severity Reaction Status Date / Time No Known Allergies Allergy Verified 07/04/21 11:52 none Allergy Unknown Unknown Uncoded 04/03/21 10:26 Active Medications: Current Medications Acetaminophen (Acetaminophen 325 Mg Tablet) 650 mg PO Q6H PRN PRN Reason: Pain, Mild (Pain Scale 1-3) Atorvastatin Calcium (Atorvastatin Calcium 40 Mg Tablet) 40 mg PO DAILY DAKOTA Carvedilol (Carvedilol 6.25 Mg Tablet) 6.25 mg PO BID DAKOTA; Protocol Hydromorphone HCl (Hydromorphone Hcl 0.5 Mg/0.5 Ml Syringe) 0.5 mg IVPUSH Q2H PRN; Protocol PRN Reason: Pain, Severe (Pain Scale 7-10) Last Admin: 06/23/22 04:28 Dose: 0.5 mg Potassium Chloride/Sodium Chloride () 20 meq in 1,000 mls @ 100 mls/hr IVCONT .Q10H DAK[place] Last Admin: 06/23/22 01:00 Dose: 100 mls/hr Piperacillin Sod/Tazobactam (Sod 3.375 gm/ Sodium Chloride) 50 mls @ 100 mls/hr IV Q6H [place] Ondansetron HCl (Ondansetron Hcl 4 Mg/2 Ml Vial) 4 mg IVPUSH Q6H PRN PRN Reason: Nausea and Vomiting Sacubitril/Valsartan (Sacubitril/Valsartan / 1 Tab Tablet) 1 tab PO BID DAKTOA; Protocol Home Medications Medication Instructions Recorded Confirmed Last Taken Type aspirin 81 mg tablet,delayed 1 tab PO DAILY 06/23/22 06/23/22 Unknown History release atorvastatin 40 mg tablet 1 tab PO DAILY 06/23/22 06/23/22 Unknown History calcium carbonate 500 mg-vitamin 1 tab PO BID 06/23/22 06/23/22 Unknown History D3 5 mcg (200 unit) tablet (Oyster Shell Calcium-Vitamin D3) carvedilol 6.25 mg tablet 1 tab PO BID 06/23/22 06/23/22 Unknown History clopidogrel 75 mg tablet 1 tab PO DAILY 06/23/22 06/23/22 Unknown History ferrous sulfate 325 mg (65 mg 1 tab PO QAM 06/23/22 06/23/22 Unknown History iron) tablet (FeroSul) multivitamin 1 tab PO DAILY 06/23/22 06/23/22 Unknown History nicotine 21 mg/24 hr daily 1 patch topical DAILY 06/23/22 06/23/22 Unknown History transdermal patch sacubitril 24 mg-valsartan 26 mg 1 tab PO BID 06/23/22 06/23/22 Unknown History tablet (Entresto) tadalafil 5 mg tablet 1 tab PO DAILY PRN Sexual Activity 06/23/22 06/23/22 Unknown History Physical Exam Vital Signs and Narrative: Vital Signs: Last Vital Signs Temp 98.8 F 06/23/22 11:10 Pulse 78 06/23/22 11:10 Resp 16 06/23/22 11:10 BP 114/63 06/23/22 11:10 Pulse Ox 95 06/23/22 11:10 O2 Del Method 06/23/22 11:10 BMI result Body Mass Index 22.4 Gen: in no acute distress HEENT: sclera anicteric, moist mucus membranes Neck: supple Lungs: clear to auscultation bilaterally Heart: regular rate and rhythm, no murmurs Abd: soft, tender RLQ Ext: no edema Skin: warm/well-perfused Neuro: alert and oriented x3, no focal findings Psych: appropriate affect Results Labs CBC and Chem 7: 06/23/22 04:16 06/23/22 04:16 Labs: Laboratory Results - last 24 hr 06/22/22 06/22/22 06/22/22 20:16 20:16 20:16 MCV 87.9 MCH 29.9 MCHC 34.1 RDW 15.1 Plt Count 199 MPV 10.7 Immature Gran % (Auto) 0.3 Neut % (Auto) 79.6 H Lymph % (Auto) 10.1 L [place] % (Auto) 9.6 Eos % (Auto) 0.2 Baso % (Auto) 0.2 Lymph # (Auto) 2.0 [place] # (Auto) 1.9 H Eos # (Auto) 0.1 Baso # (Auto) 0.1 Abs Immat Gran (auto) 0.07 H Absolute Neuts (auto) 15.9 H Absolute Nucleated RBC 0.000 Nucleated RBC % (auto) 0.0 Smear Tech's Comments VERIFIED Anion Gap 14 Estim Creat Clear Calc 94.7 Estimated GFR > 60 Random Glucose 109 Lactic Acid Calcium 8.8 Total Bilirubin 0.8 AST 13 ALT 12 Alkaline Phosphatase 92 Total Protein 6.6 Albumin 3.9 Lipase 5 L Urine Color YELLOW Urine Appearance CLEAR Urine pH 6.0 Ur Specific [place] 1.015 Urine Protein NEG Urine Glucose (UA) NEG Urine Ketones NEG Urine Blood 1+ H Urine Nitrite NEG Ur Leukocyte Esterase NEG Urine RBC 1-4 Urine WBC 0 Ur Squamous Epith Cells TRACE Amorphous Sediment 1+ Urine Bacteria NONE Urine Mucus TRACE COVID-19 (RACHEL) COVID-19 Clin Com 06/23/22 06/23/22 06/23/22 02:46 04:16 04:16 MCV 88.6 MCH 29.9 MCHC 33.7 RDW 15.3 Plt Count 145 L D MPV 11.0 Immature Gran % (Auto) 0.3 Neut % (Auto) 82.8 H Lymph % (Auto) 10.0 L [place] % (Auto) 6.5 Eos % (Auto) 0.2 Baso % (Auto) 0.2 Lymph # (Auto) 1.1 L [place] # (Auto) 0.7 Eos # (Auto) 0.0 Baso # (Auto) 0.0 Abs Immat Gran (auto) 0.03 Absolute Neuts (auto) 9.0 H Absolute Nucleated RBC 0.000 Nucleated RBC % (auto) 0.0 Smear Tech's Comments Anion Gap 14 Estim Creat Clear Calc 102.7 Estimated GFR > 60 Random Glucose 99 Lactic Acid Calcium 8.2 L D Total Bilirubin AST ALT Alkaline Phosphatase Total Protein Albumin Lipase Urine Color Urine Appearance Urine pH Ur Specific [place] Urine Protein Urine Glucose (UA) Urine Ketones Urine Blood Urine Nitrite Ur Leukocyte Esterase Urine RBC Urine WBC Ur Squamous Epith Cells Amorphous Sediment Urine Bacteria Urine Mucus COVID-19 (RACHEL) Negative COVID-19 Clin Com See Note 06/23/22 04:16 MCV MCH MCHC RDW Plt Count MPV Immature Gran % (Auto) Neut % (Auto) Lymph % (Auto) [place] % (Auto) Eos % (Auto) Baso % (Auto) Lymph # (Auto) [place] # (Auto) Eos # (Auto) Baso # (Auto) Abs Immat Gran (auto) Absolute Neuts (auto) Absolute Nucleated RBC Nucleated RBC % (auto) Smear Tech's Comments Anion Gap Estim Creat Clear Calc Estimated GFR Random Glucose Lactic Acid 1.2 Calcium Total Bilirubin AST ALT Alkaline Phosphatase Total Protein Albumin Lipase Urine Color Urine Appearance Urine pH Ur Specific [place] Urine Protein Urine Glucose (UA) Urine Ketones Urine Blood Urine Nitrite Ur Leukocyte Esterase Urine RBC Urine WBC Ur Squamous Epith Cells Amorphous Sediment Urine Bacteria Urine Mucus COVID-19 (RACHEL) COVID-19 Clin Com Imaging Radiologist's Impressions: Impressions Abdomen/Pelvis CT 06/22/22 23:13 IMPRESSION: Acute appendicitis. Associated perforation with free air present. Significant surrounding inflammation. This critical result was discussed with Luis Felipe Jones MD by telephone at 06/22/2022 11:30 PM and it was ascertained that the content and urgency of the report was understood at the time of direct communication. Fleischner guidelines were followed. Assessment and Plan (1) CAD (coronary artery disease): Status: Acute Plan 57yo M admitted to surgery service for perforated acute appendicitis, going to OR for emergent appendectomy. PMHx notable for anterior STEMI for which he was [place] [facility]. A BARBRA was placed for a 100% LAD occlusion. He was started on DAPT [ASA + clopidogrel]. Echo showed ischemic cardiomyopathy with reduced LVEF of 20-30%. Medicine consult requested for management of comorbid conditions # CAD - resume DAPT as soon as deemed safe by surgeon. resume atorvastatin + carvedilol. # ischemic CM # chronic HFrEF - resume carvedilol + Entresto, monitor for fluid overload # tobacco abuse - NRT # cocaine abuse - in remission # VTE ppx - SCDs, LMWH when deemed safe by surgeon Thank you for this consultation. We will continue to follow along with you.
[2022-06-23] MEDS: Piperacillin Sodium/Tazobactam 3.375 GM in 0.9 % Sodium Chloride 50 ML IV ×2 (18:00→23:33)
[2022-06-23] MEDS: Docusate Sodium 100 MG CAPSULE 200 MG PO (20:24)
[2022-06-23] MEDS: carvediloL 6.25 MG TABLET PO (20:24)
[2022-06-23] MEDS: Sacubitril/Valsartan 24/26 1 TAB TABLET PO (20:24)
--- NOTE | 2022-06-24 | ECG_ITS ---
Test Reason : RIB PAIN Blood Pressure : / mmHG Vent. Rate : 087 BPM Atrial Rate : 087 BPM P-R Int : 156 ms QRS Dur : 086 ms QT Int : 370 ms P-R-T Axes : 029 002 -08 degrees QTc Int : 445 ms Normal sinus rhythm Minimal voltage criteria for LVH, may be normal variant ( R in aVL ) Borderline ECG When compared with ECG of 23-JUN-2022 12:10, ST-T wave changes have resolved Referred By: Win Lopez Electronically Signed By:HOLLAND MARSH
[2022-06-24 03:34] VITALS: BP 109/58; PULSE 70; RESP 18; TEMP 36.8; O2SAT 91
[2022-06-24] MEDS: HYDROmorphone HCl 0.5 MG/0.5 ML SYRINGE IVPUSH ×5 (04:31→21:30)
[2022-06-24] MEDS: Piperacillin Sodium/Tazobactam 3.375 GM in 0.9 % Sodium Chloride 50 ML IV ×4 (05:41→23:28)
[2022-06-24 05:43] LABS: MANUAL DIFF FLAG NO
[2022-06-24 05:49] LABS: Basophils Percent Auto 0.1 % (0-2); Eosinophils Percent Auto 0.1 % (0-4); Hemoglobin 14.4 g/dl (14.0-18.0); Imm Gran Abs Auto 0.19 X10*3/uL (0.00-0.03); Imm Gran Pct Auto 1.1 % (0.0-0.4); Lymphocytes Absolute Auto 1.4 X10*3/uL (1.2-4.9); Lymphocytes Percent Auto 8.1 % (20-40); Mean Corpuscular HGB Conc 33.5 g/dl (31.0-36.0); Mean Corpuscular Hemoglobin 30.2 pg (27.0-33.0); Mean Corpuscular Volume 90.1 fL (80.0-98.0); Mean Platelet Volume 11.6 fL (9.4-12.4); Monocytes Absolute Auto 1.3 X10*3/uL (0.1-1.2); Monocytes Percent Auto 7.7 % (2-11); Neutrophils Absolute Auto 14.1 x10*3/uL (2.0-8.3); Neutrophils Percent Auto 82.9 % (45-73); Platelet Count 161 X10*3/uL (160-400); Red Blood Count 4.77 X10*6/uL (4.60-5.80); Red Cell Distribution Width 15.6 % (11.0-16.0)
[2022-06-24 06:11] LABS: Anion Gap 13 (12-20); Blood Urea Nitrogen 11 mg/dL (9-16); Carbon Dioxide 26 mmol/L (22-29); Chloride 104 mmol/L (96-108); Creatinine Clr Calc Pharmacy 98.6; Estimated Glomerular Filt Rate > 60; Glucose Random 123 mg/dL (60-115); Sodium 138 mmol/L (135-145)
[2022-06-24 06:46] VITALS: BP 101/56; PULSE 61; RESP 18; TEMP 36.1; O2SAT 92
--- NOTE | 2022-06-24 08:02 | PM.PNGS ---
Subjective Subjective Date of Service: 06/24/22 Interval history: The patient is seen with a hospital automatic pinsetter mechanic. Explained that he had perforated appendicitis. He denied any new complaints such as difficulty breathing, shortness of breath or visual changes and is not having any flatus yet. Physical Exam Vital Signs: Vital Signs: Last Vital Signs Temp 97 F 06/24/22 06:46 Pulse 61 06/24/22 06:46 Resp 18 06/24/22 06:46 BP 101/56 L 06/24/22 06:46 Pulse Ox 92 06/24/22 06:46 O2 Del Method 06/24/22 06:46 O2 Flow Rate 2 06/23/22 15:37 BMI result Body Mass Index 22.4 He is nontoxic Sclera are anicteric Cranial nerves 2 through 12 are intact Abdomen has appropriate incisional tenderness KEREN has serosanguineous, non feculent/non purulence drainage Objective Data Active Medications Acetaminophen (Acetaminophen 325 Mg Tablet) 650 mg PO Q6H PRN PRN Reason: Pain, Mild (Pain Scale 1-3) Aspirin (Aspirin 81 Mg Tab.Chew) 81 mg PO DAILY [facility] Aspirin (Aspirin Enteric Coated 81 Mg Tablet.Dr) 81 mg PO DAILY [facility] Atorvastatin Calcium (Atorvastatin Calcium 40 Mg Tablet) 40 mg PO DAILY [facility] Carvedilol (Carvedilol 6.25 Mg Tablet) 6.25 mg PO BID [facility]; Protocol Last Admin: 06/23/22 20:24 Dose: 6.25 mg Documented By: TRACY Clopidogrel Bisulfate (Clopidogrel Bisulfate 75 Mg Tablet) 75 mg PO DAILY [facility] Clopidogrel Bisulfate (Clopidogrel Bisulfate 75 Mg Tablet) 75 mg PO DAILY [facility] Docusate Sodium (Docusate Sodium 100 Mg Capsule) 200 mg PO BID [facility] Last Admin: 06/23/22 20:24 Dose: 200 mg Documented By: TRACY Fentanyl (Fentanyl Citrate/Pf 100 Mcg/2 Ml Vial) 50 mcg IVPUSH Q5M PRN; Protocol PRN Reason: Pain, Severe (Pain Scale 7-10) Hydromorphone HCl (Hydromorphone Hcl 0.5 Mg/0.5 Ml Syringe) 0.5 mg IVPUSH Q2H PRN; Protocol PRN Reason: Pain, Severe (Pain Scale 7-10) Last Admin: 06/24/22 04:31 Dose: 0.5 mg Documented By: TRACY Potassium Chloride/Sodium Chloride () 20 meq in 1,000 mls @ 100 mls/hr IVCONT .Q10H [facility] Last Admin: 06/24/22 01:57 Dose: 100 mls/hr Documented By: TRACY Piperacillin Sod/Tazobactam (Sod 3.375 gm/ Sodium Chloride) 50 mls @ 100 mls/hr IV Q6H [facility] Last Infusion: 06/24/22 06:12 Dose: 0 mls/hr Documented By: TRACY Multivitamins/Vitamin C (Multivitamin Tablet) 1 tab PO DAILY [facility] Nicotine (Nicotine 21 Mg Patch.Td24) 21 mg TRANSDERMA DAILY [facility] Ondansetron HCl (Ondansetron Hcl 4 Mg/2 Ml Vial) 4 mg IVPUSH Q6H PRN PRN Reason: Nausea and Vomiting Ondansetron HCl (Ondansetron Hcl 4 Mg/2 Ml Vial) 4 mg IVPUSH ONCE PRN PRN Reason: Nausea and Vomiting Sacubitril/Valsartan (Sacubitril/Valsartan 1 Tab Tablet) 1 tab PO BID [facility]; Protocol Last Admin: 06/23/22 20:24 Dose: 1 tab Documented By: TRACY Labs CBC & Chem 7: 06/24/22 05:16 06/24/22 05:16 Labs: Laboratory Results - last 24 hr 06/24/22 06/24/22 05:16 05:16 MCV 90.1 MCH 30.2 MCHC 33.5 RDW 15.6 Plt Count 161 MPV 11.6 Immature Gran % (Auto) 1.1 H Neut % (Auto) 82.9 H Lymph % (Auto) 8.1 L [place] % (Auto) 7.7 Eos % (Auto) 0.1 Baso % (Auto) 0.1 Lymph # (Auto) 1.4 [place] # (Auto) 1.3 H Eos # (Auto) 0.0 Baso # (Auto) 0.0 Abs Immat Gran (auto) 0.19 H Absolute Neuts (auto) 14.1 H Absolute Nucleated RBC 0.000 Nucleated RBC % (auto) 0.0 Anion Gap 13 Estim Creat Clear Calc 98.6 Estimated GFR > 60 Random Glucose 123 H Calcium 8.0 L Microbiology Microbiology Results: Microbiology 06/23/22 04:16 Blood Culture - Preliminary Blood - Venous No growth after 24 hours. 06/23/22 04:16 Blood Culture - Preliminary Blood - Venous No growth after 24 hours. Blood Culture - Preliminary No growth after 24 hours. 06/23/22 Unknown Gram Stain - Final Peritoneal Fluid Procedures Date of Service Date of Service: 06/24/22 Progress Note: A&P Assessment and plan (1) Perforated appendix: Status: Acute (2) Tobacco abuse: Status: Acute (3) CAD (coronary artery disease): Status: Acute (4) Appendicitis: Status: Acute Plan With the help of the automatic pinsetter mechanic, I explained that he likely came to the hospital with a perforated appendix and that he needed to have IV fluid, antibiotic and accurate hospital records from [facility]. The plan for now is to await identification of the bacteria and his abdomen causing the infection and tailor antibiotics accordingly. Continue clear liquids for now. His leukocytosis is not unexpected given that he had interloop abscesses that needed to be lysed and has diffuse peritonitis. Trend daily labs, encourage out of bed and incentive spirometry Time Spent With Patient Time: Total time spent is greater than 50% in coordination of care (as documented) at patient's floor/unit and/or counseling patient: Quality Stroke Does the patient have a stroke diagnosis?: No VTE Prior VTE?: No VTE Risk Level:: Surgical - high VTE Device Contraindication: N/A - Device Ordered VTE Drug Contraindication: N/A - Med Ordered
--- NOTE | 2022-06-24 08:11 | HO.POSTANES ---
Post Anesthesia Evaluation Post Anesthesia Evaluation Vital Signs: Vital Signs Temp Pulse Resp BP Pulse Ox O2 Del Method 06/24/22 06:46 97 F 61 18 101/56 L 92 Room Air 06/24/22 03:34 98.2 F 70 18 109/58 L 91 L Room Air 06/23/22 23:14 98.8 F 71 19 107/60 92 Room Air Anesthesia: General Endotracheal-GETA Mental Status: Awake Pain Control: Satisfactory Nausea/Vomiting: None Hydration: Adequate Anesthesia-Related Issues: No Anes. Related Issues
[2022-06-24] MEDS: Nicotine 21 MG PATCH.TD24 TRANSDERMA (09:01)
[2022-06-24] MEDS: carvediloL 6.25 MG TABLET PO ×2 (09:01→21:30)
[2022-06-24] MEDS: Clopidogrel Bisulfate 75 MG TABLET PO (09:01)
[2022-06-24] MEDS: Multivitamin TABLET 1 TAB PO (09:01)
[2022-06-24] MEDS: Aspirin Enteric Coated 81 MG TABLET.DR PO (09:01)
[2022-06-24] MEDS: Atorvastatin Calcium 40 MG TABLET PO (09:01)
[2022-06-24] MEDS: Docusate Sodium 100 MG CAPSULE 200 MG PO ×2 (09:01→21:30)
[2022-06-24 11:07] VITALS: BP 114/64; PULSE 72; RESP 18; TEMP 36.7; O2SAT 93
[2022-06-24] MEDS: Sacubitril/Valsartan 24/26 1 TAB TABLET PO ×2 (12:15→21:30)
--- NOTE | 2022-06-24 13:52 | HO.PM.IMPN ---
Subjective Subjective Date of Service: 06/24/22 Interval History: no acute issues overnight. Pain control adequate Review of Systems via meter calibrator: Denies chest pain Denies shortness of breath Denies nausea vomiting diarrhea Denies fever chills Physical Exam Vital Signs: Vital Signs: Last Vital Signs Temp 98.1 F 06/24/22 11:07 Pulse 72 06/24/22 11:07 Resp 18 06/24/22 11:07 BP 114/64 06/24/22 11:07 Pulse Ox 93 06/24/22 11:07 O2 Del Method 06/24/22 11:07 O2 Flow Rate 2 06/23/22 15:37 BMI result Body Mass Index 22.4 Const: Other: awake alert no acute distress Resp: Other: clear to auscultation bilaterally no rales rhonchi or wheezes Cardio: Other: no S4; positive S1-S2; no S3 murmurs rubs GI: Other: incisionaltenderness noted quiet bowel sounds Extrem: Other: no edema bilaterally Objective Data Active Medications Acetaminophen (Acetaminophen 325 Mg Tablet) 650 mg PO Q6H PRN PRN Reason: Pain, Mild (Pain Scale 1-3) Aspirin (Aspirin 81 Mg Tab.Chew) 81 mg PO DAILY [facility] Last Admin: 06/24/22 09:05 Dose: Not Given Documented By: REGINE Non-Admin Reason: Duplicate Order Aspirin (Aspirin Enteric Coated 81 Mg Tablet.) 81 mg PO DAILY [facility] Last Admin: 06/24/22 09:01 Dose: 81 mg Documented By: REGINE Atorvastatin Calcium (Atorvastatin Calcium 40 Mg Tablet) 40 mg PO DAILY [facility] Last Admin: 06/24/22 09:01 Dose: 40 mg Documented By: REGINE Carvedilol (Carvedilol 6.25 Mg Tablet) 6.25 mg PO BID [facility]; Protocol Last Admin: 06/24/22 09:01 Dose: 6.25 mg Documented By: REGINE Clopidogrel Bisulfate (Clopidogrel Bisulfate 75 Mg Tablet) 75 mg PO DAILY [facility] Last Admin: 06/24/22 09:01 Dose: 75 mg Documented By: REGINE Docusate Sodium (Docusate Sodium 100 Mg Capsule) 200 mg PO BID [facility] Last Admin: 06/24/22 09:01 Dose: 200 mg Documented By: REGINE Fentanyl (Fentanyl Citrate/Pf 100 Mcg/2 Ml Vial) 50 mcg IVPUSH Q5M PRN; Protocol PRN Reason: Pain, Severe (Pain Scale 7-10) Hydromorphone HCl (Hydromorphone Hcl 0.5 Mg/0.5 Ml Syringe) 0.5 mg IVPUSH Q2H PRN; Protocol PRN Reason: Pain, Severe (Pain Scale 7-10) Last Admin: 06/24/22 10:52 Dose: 0.5 mg Documented By: REGINE Potassium Chloride/Sodium Chloride () 20 meq in 1,000 mls @ 100 mls/hr IVCONT .Q10H [facility] Last Admin: 06/24/22 10:57 Dose: 100 mls/hr Documented By: REGINE Piperacillin Sod/Tazobactam (Sod 3.375 gm/ Sodium Chloride) 50 mls @ 100 mls/hr IV Q6H [facility] Last Infusion: 06/24/22 13:03 Dose: 0 mls/hr Documented By: REGINE Multivitamins/Vitamin C (Multivitamin Tablet) 1 tab PO DAILY [facility] Last Admin: 06/24/22 09:01 Dose: 1 tab Documented By: REGINE Nicotine (Nicotine 21 Mg Patch.Td24) 21 mg TRANSDERMA DAILY [facility] Last Admin: 06/24/22 09:01 Dose: 21 mg Documented By: REGINE Ondansetron HCl (Ondansetron Hcl 4 Mg/2 Ml Vial) 4 mg IVPUSH Q6H PRN PRN Reason: Nausea and Vomiting Ondansetron HCl (Ondansetron Hcl 4 Mg/2 Ml Vial) 4 mg IVPUSH ONCE PRN PRN Reason: Nausea and Vomiting Oxycodone HCl (Oxycodone Hcl Immed Release 5 Mg Tablet) 5 mg PO Q4H PRN PRN Reason: Pain, Moderate (Pain Scale 4-6 Sacubitril/Valsartan (Sacubitril/Valsartan 1 Tab Tablet) 1 tab PO BID [facility]; Protocol Last Admin: 06/24/22 12:15 Dose: 1 tab Documented By: REGINE Labs CBC & Chem 7: 06/24/22 05:16 06/24/22 05:16 Labs: Laboratory Results - last 24 hr 06/24/22 06/24/22 05:16 05:16 MCV 90.1 MCH 30.2 MCHC 33.5 RDW 15.6 Plt Count 161 MPV 11.6 Immature Gran % (Auto) 1.1 H Neut % (Auto) 82.9 H Lymph % (Auto) 8.1 L [place] % (Auto) 7.7 Eos % (Auto) 0.1 Baso % (Auto) 0.1 Lymph # (Auto) 1.4 [place] # (Auto) 1.3 H Eos # (Auto) 0.0 Baso # (Auto) 0.0 Abs Immat Gran (auto) 0.19 H Absolute Neuts (auto) 14.1 H Absolute Nucleated RBC 0.000 Nucleated RBC % (auto) 0.0 Anion Gap 13 Estim Creat Clear Calc 98.6 Estimated GFR > 60 Random Glucose 123 H Calcium 8.0 L Microbiology Microbiology Results: Microbiology 06/23/22 Unknown Gram Stain - Final Peritoneal Fluid Routine Culture - Preliminary Gram negative gonzalo Anaerobic Culture - Preliminary Culture in progress. 06/23/22 04:16 Blood Culture - Preliminary Blood - Venous No growth after 24 hours. 06/23/22 04:16 Blood Culture - Preliminary Blood - Venous No growth after 24 hours. Blood Culture - Preliminary No growth after 24 hours. Assessment and Plan (1) CAD (coronary artery disease): Status: Acute (2) Perforated appendix: Status: Acute Plan 57yo M admitted to surgery service for perforated acute appendicitis, going to OR for emergent appendectomy. PMHx notable for anterior STEMI for which he was at [facility] [place] 04/30-05/02/22. A BARBRA was placed for a 100% LAD occlusion. He was started on DAPT [ASA + clopidogrel]. Echo showed ischemic cardiomyopathy with reduced LVEF of 20-30%. Medicine consult requested for management of comorbid conditions 1. CAD/ ischemic cm/ chronic HFr EF - Plavix/ASA - carvedilol + Entresto,: check EKG 2.tobacco abuse - NRT SCDs, LMWH when deemed safe by surgeon Quality Stroke Does the patient have a stroke diagnosis?: No VTE Prior VTE?: No VTE Risk Level:: Surgical - high VTE Device Contraindication: N/A - Device Ordered VTE Drug Contraindication: N/A - Med Ordered
[2022-06-24 15:33] VITALS: BP 108/65; PULSE 66; RESP 16; TEMP 36.1; O2SAT 93
[2022-06-24 20:00] VITALS: BP 144/72; PULSE 66; RESP 18; TEMP 35.8; O2SAT 94
[2022-06-25] VITALS (7 sets, daily range): BP systolic 115–138; BP diastolic 65–77; PULSE 57–72; RESP 17–18; TEMP 36.1–36.7; O2SAT 94–96
[2022-06-25] MEDS: HYDROmorphone HCl 0.5 MG/0.5 ML SYRINGE IVPUSH ×4 (03:30→17:11)
[2022-06-25 05:35] LABS: MANUAL DIFF FLAG NO
[2022-06-25 05:41] LABS: Basophils Percent Auto 0.2 % (0-2); Eosinophils Absolute Auto 0.6 X10*3/uL (0.0-0.4); Eosinophils Percent Auto 3.1 % (0-4); Hematocrit 49.5 % (42.0-52.0); Hemoglobin 16.7 g/dl (14.0-18.0); Imm Gran Abs Auto 0.11 X10*3/uL (0.00-0.03); Imm Gran Pct Auto 0.6 % (0.0-0.4); Lymphocytes Absolute Auto 1.3 X10*3/uL (1.2-4.9); Lymphocytes Percent Auto 6.7 % (20-40); Mean Corpuscular HGB Conc 33.7 g/dl (31.0-36.0); Mean Corpuscular Hemoglobin 30.3 pg (27.0-33.0); Mean Corpuscular Volume 89.8 fL (80.0-98.0); Mean Platelet Volume 11.2 fL (9.4-12.4); Monocytes Absolute Auto 1.2 X10*3/uL (0.1-1.2); Monocytes Percent Auto 6.5 % (2-11); Neutrophils Absolute Auto 15.7 x10*3/uL (2.0-8.3); Neutrophils Percent Auto 82.9 % (45-73); Platelet Count 197 X10*3/uL (160-400); Red Blood Count 5.51 X10*6/uL (4.60-5.80); Red Cell Distribution Width 15.7 % (11.0-16.0); White Blood Count 18.9 X10*3/uL (4.8-10.8)
[2022-06-25 05:53] LABS: Anion Gap 13 (12-20); Blood Urea Nitrogen 12 mg/dL (9-16); Calcium 8.1 mg/dL (8.4-10.2); Carbon Dioxide 23 mmol/L (22-29); Chloride 106 mmol/L (96-108); Creatinine Clr Calc Pharmacy 97.2; Estimated Glomerular Filt Rate > 60; Glucose Random 130 mg/dL (60-115); Potassium 5.1 mmol/L (3.3-5.1); Sodium 137 mmol/L (135-145)
[2022-06-25] MEDS: Piperacillin Sodium/Tazobactam 3.375 GM in 0.9 % Sodium Chloride 50 ML IV ×3 (05:58→17:11)
[2022-06-25] MEDS: Docusate Sodium 100 MG CAPSULE 200 MG PO ×2 (08:01→20:08)
[2022-06-25] MEDS: Nicotine 21 MG PATCH.TD24 TRANSDERMA (08:02)
[2022-06-25] MEDS: Sacubitril/Valsartan 24/26 1 TAB TABLET PO ×2 (08:02→20:08)
[2022-06-25] MEDS: Multivitamin TABLET 1 TAB PO (08:02)
[2022-06-25] MEDS: Clopidogrel Bisulfate 75 MG TABLET PO (08:02)
[2022-06-25] MEDS: carvediloL 6.25 MG TABLET PO ×2 (08:02→20:08)
[2022-06-25] MEDS: Aspirin Enteric Coated 81 MG TABLET.DR PO (08:02)
[2022-06-25] MEDS: Atorvastatin Calcium 40 MG TABLET PO (08:02)
[2022-06-25] MEDS: Lactated Ringers 1,000 ML 100 ML IVCONT (10:21)
--- NOTE | 2022-06-25 12:26 | P.PNGS_ITS ---
Subjective Subjective Date of Service: 06/25/22 Patient reports: still having pain Interval history: The patient is seen with the help of his RN who facilitated the interview. The patient reports minimal flatus and reports he feels bloated and ever since drinking some apple juice he feels more bloated and having belching. He denies any chest pain, difficulty breathing shortness of breath nausea or vomiting Physical Exam Vital Signs: Vital Signs: Last Vital Signs Temp 98 F 06/25/22 11:27 Pulse 70 06/25/22 11:27 Resp 18 06/25/22 11:27 BP 125/71 06/25/22 11:27 Pulse Ox 96 06/25/22 11:27 O2 Del Method 06/25/22 11:27 O2 Flow Rate 2 06/25/22 00:00 BMI result Body Mass Index 22.4 The patient is nontoxic Sclera are anicteric Abdomen is a little more distended than yesterday with minimal tympany. KEREN output remains serous with no purulence nor feculent. Objective Data Active Medications Acetaminophen (Acetaminophen 325 Mg Tablet) 650 mg PO Q6H PRN PRN Reason: Pain, Mild (Pain Scale 1-3) Aspirin (Aspirin 81 Mg Tab.Chew) 81 mg PO DAILY [facility] Last Admin: 06/25/22 08:01 Dose: Not Given Documented By: CHENCHO Non-Admin Reason: Duplicate Order Aspirin (Aspirin Enteric Coated 81 Mg Tablet.) 81 mg PO DAILY [facility] Last Admin: 06/25/22 08:02 Dose: 81 mg Documented By: CHENCHO Atorvastatin Calcium (Atorvastatin Calcium 40 Mg Tablet) 40 mg PO DAILY [facility] Last Admin: 06/25/22 08:02 Dose: 40 mg Documented By: CHENCHO Carvedilol (Carvedilol 6.25 Mg Tablet) 6.25 mg PO BID [facility]; Protocol Last Admin: 06/25/22 08:02 Dose: 6.25 mg Documented By: CHENCHO Clopidogrel Bisulfate (Clopidogrel Bisulfate 75 Mg Tablet) 75 mg PO DAILY [facility] Last Admin: 06/25/22 08:02 Dose: 75 mg Documented By: CHENCHO Docusate Sodium (Docusate Sodium 100 Mg Capsule) 200 mg PO BID [facility] Last Admin: 06/25/22 08:01 Dose: 200 mg Documented By: CHENCHO Fentanyl (Fentanyl Citrate/Pf 100 Mcg/2 Ml Vial) 50 mcg IVPUSH Q5M PRN; Protocol PRN Reason: Pain, Severe (Pain Scale 7-10) Hydromorphone HCl (Hydromorphone Hcl 0.5 Mg/0.5 Ml Syringe) 0.5 mg IVPUSH Q2H PRN; Protocol PRN Reason: Pain, Severe (Pain Scale 7-10) Last Admin: 06/25/22 12:17 Dose: 0.5 mg Documented By: CHENCHO Piperacillin Sod/Tazobactam (Sod 3.375 gm/ Sodium Chloride) 50 mls @ 100 mls/hr IV Q6H [facility] Last Admin: 06/25/22 12:18 Dose: 100 mls/hr Documented By: CHENCHO Lactated Ringer's (Lr) 1,000 mls @ 100 mls/hr IVCONT .Q10H [facility] Last Admin: 06/25/22 10:21 Dose: 100 mls/hr Documented By: CHENCHO Multivitamins/Vitamin C (Multivitamin Tablet) 1 tab PO DAILY [facility] Last Admin: 06/25/22 08:02 Dose: 1 tab Documented By: CHENCHO Nicotine (Nicotine 21 Mg Patch.Td24) 21 mg TRANSDERMA DAILY [facility] Last Admin: 06/25/22 08:02 Dose: 21 mg Documented By: CHENCHO Ondansetron HCl (Ondansetron Hcl 4 Mg/2 Ml Vial) 4 mg IVPUSH Q6H PRN PRN Reason: Nausea and Vomiting Ondansetron HCl (Ondansetron Hcl 4 Mg/2 Ml Vial) 4 mg IVPUSH ONCE PRN PRN Reason: Nausea and Vomiting Oxycodone HCl (Oxycodone Hcl Immed Release 5 Mg Tablet) 5 mg PO Q4H PRN PRN Reason: Pain, Moderate (Pain Scale 4-6 Sacubitril/Valsartan (Sacubitril/Valsartan 1 Tab Tablet) 1 tab PO BID [facility]; Protocol Last Admin: 06/25/22 08:02 Dose: 1 tab Documented By: CHENCHO Labs CBC & Chem 7: 06/25/22 05:22 06/25/22 05:23 Labs: Laboratory Results - last 24 hr 06/25/22 06/25/22 05:22 05:23 MCV 89.8 MCH 30.3 MCHC 33.7 RDW 15.7 Plt Count 197 MPV 11.2 Immature Gran % (Auto) 0.6 H Neut % (Auto) 82.9 H Lymph % (Auto) 6.7 L [place] % (Auto) 6.5 Eos % (Auto) 3.1 Baso % (Auto) 0.2 Lymph # (Auto) 1.3 [place] # (Auto) 1.2 Eos # (Auto) 0.6 H Baso # (Auto) 0.0 Abs Immat Gran (auto) 0.11 H Absolute Neuts (auto) 15.7 H Absolute Nucleated RBC 0.000 Nucleated RBC % (auto) 0.0 Anion Gap 13 Estim Creat Clear Calc 97.2 Estimated GFR > 60 Random Glucose 130 H Calcium 8.1 L Microbiology Microbiology Results: Microbiology 06/23/22 Unknown Gram Stain - Final Peritoneal Fluid Routine Culture - Final Escherichia coli Anaerobic Culture - Preliminary Culture in progress. 06/23/22 04:16 Blood Culture - Preliminary Blood - Venous No growth after 48 hours. 06/23/22 04:16 Blood Culture - Preliminary Blood - Venous No growth after 48 hours. Blood Culture - Preliminary No growth after 48 hours. Procedures Date of Service Date of Service: 06/25/22 Progress Note: A&P Assessment and plan (1) Perforated appendix: Status: Acute (2) Diffuse peritonitis: Status: Acute (3) CAD (coronary artery disease): Status: Acute (4) Tobacco abuse: Status: Acute Plan I explained with the help of the nurse that the patient has diffuse peritonitis in his intestines are not working normally. Continue current antibiotics and I have explained to the patient to minimize liquids in use them only for comfort to avoid vomiting and possible placement of a nasogastric tube secondary to developing ileus. It is encouraging that he has passed some gas but he has not had a bowel movement yet. His elevated white blood cell count is persisting and is concerning. Await better bowel function. Encourage incentive spirometry and out of bed. Continue IV fluid. Await cultures and sensitivities. Time Spent With Patient Time: Total time spent is greater than 50% in coordination of care (as documented) at patient's floor/unit and/or counseling patient: Quality Stroke Does the patient have a stroke diagnosis?: No VTE Prior VTE?: No VTE Risk Level:: Surgical - high VTE Device Contraindication: N/A - Device Ordered VTE Drug Contraindication: N/A - Med Ordered
--- NOTE | 2022-06-25 13:10 | MHC.CM.PN ---
PER ROUNDS DISCUSSION, PATIENT IS NOT YET MEDICALLY CLEARED FOR DISCHARGE R/T CONTINUED IV FLUIDS, AWAITING CULTURES AND SENSITIVITIES, ENCOURAGE INCENTIVE SPIROMETRY OOB. D/C PLAN CONTINUES TO BE HOME SELF-CARE. CM WILL CONTINUE TO FOLLOW FOR D/C NEEDS.
--- NOTE | 2022-06-25 14:16 | P.PNIM_ITS ---
Subjective Subjective Date of Service: 06/25/22 Interval History: no acute issues overnight. Pain control adequate;feels bloated today Review of Systems via sampler tester: Denies chest pain Denies shortness of breath Denies nausea vomiting diarrhea Denies fever chills Physical Exam 2 Vital Signs: Vital Signs: Last Vital Signs Temp 98 F 06/25/22 11:27 Pulse 70 06/25/22 11:27 Resp 18 06/25/22 11:27 BP 125/71 06/25/22 11:27 Pulse Ox 96 06/25/22 11:27 O2 Del Method 06/25/22 11:27 O2 Flow Rate 2 06/25/22 00:00 BMI result Body Mass Index 22.4 Const: Other: awake alert no acute distress Resp: Other: clear to auscultation bilaterally no rales rhonchi or wheezes Cardio: Other: no S4; positive S1-S2; no S3 murmurs rubs GI: Other: incisionaltenderness noted ;tympanitis ...no BS.Serous drainage in KEREN Extrem: Other: no edema bilaterally Objective Data Active Medications Acetaminophen (Acetaminophen 325 Mg Tablet) 650 mg PO Q6H PRN PRN Reason: Pain, Mild (Pain Scale 1-3) Aspirin (Aspirin 81 Mg Tab.Chew) 81 mg PO DAILY [facility] Last Admin: 06/25/22 08:01 Dose: Not Given Documented By: CHENCHO Non-Admin Reason: Duplicate Order Aspirin (Aspirin Enteric Coated 81 Mg Tablet.) 81 mg PO DAILY [facility] Last Admin: 06/25/22 08:02 Dose: 81 mg Documented By: CHENCHO Atorvastatin Calcium (Atorvastatin Calcium 40 Mg Tablet) 40 mg PO DAILY [facility] Last Admin: 06/25/22 08:02 Dose: 40 mg Documented By: CHENCHO Carvedilol (Carvedilol 6.25 Mg Tablet) 6.25 mg PO BID [facility]; Protocol Last Admin: 06/25/22 08:02 Dose: 6.25 mg Documented By: CHENCHO Clopidogrel Bisulfate (Clopidogrel Bisulfate 75 Mg Tablet) 75 mg PO DAILY [facility] Last Admin: 06/25/22 08:02 Dose: 75 mg Documented By: CHENCHO Docusate Sodium (Docusate Sodium 100 Mg Capsule) 200 mg PO BID [facility] Last Admin: 06/25/22 08:01 Dose: 200 mg Documented By: CHENCHO Famotidine (Famotidine 20 Mg Tablet) 20 mg PO BID [facility] Fentanyl (Fentanyl Citrate/Pf 100 Mcg/2 Ml Vial) 50 mcg IVPUSH Q5M PRN; Protocol PRN Reason: Pain, Severe (Pain Scale 7-10) Hydromorphone HCl (Hydromorphone Hcl 0.5 Mg/0.5 Ml Syringe) 0.5 mg IVPUSH Q2H PRN; Protocol PRN Reason: Pain, Severe (Pain Scale 7-10) Last Admin: 06/25/22 12:17 Dose: 0.5 mg Documented By: CHENCHO Piperacillin Sod/Tazobactam (Sod 3.375 gm/ Sodium Chloride) 50 mls @ 100 mls/hr IV Q6H [facility] Last Infusion: 06/25/22 13:59 Dose: 0 mls/hr Documented By: CHENCHO Lactated Ringer's (Lr) 1,000 mls @ 80 mls/hr IVCONT .[id number] [facility] Multivitamins/Vitamin C (Multivitamin Tablet) 1 tab PO DAILY [facility] Last Admin: 06/25/22 08:02 Dose: 1 tab Documented By: CHENCHO Nicotine (Nicotine 21 Mg Patch.Td24) 21 mg TRANSDERMA DAILY [facility] Last Admin: 06/25/22 08:02 Dose: 21 mg Documented By: CHENCHO Ondansetron HCl (Ondansetron Hcl 4 Mg/2 Ml Vial) 4 mg IVPUSH Q6H PRN PRN Reason: Nausea and Vomiting Ondansetron HCl (Ondansetron Hcl 4 Mg/2 Ml Vial) 4 mg IVPUSH ONCE PRN PRN Reason: Nausea and Vomiting Oxycodone HCl (Oxycodone Hcl Immed Release 5 Mg Tablet) 5 mg PO Q4H PRN PRN Reason: Pain, Moderate (Pain Scale 4-6 Sacubitril/Valsartan (Sacubitril/Valsartan 1 Tab Tablet) 1 tab PO BID [facility]; Protocol Last Admin: 06/25/22 08:02 Dose: 1 tab Documented By: CHENCHO Labs CBC & Chem 7: 06/25/22 05:22 06/25/22 05:23 Labs: Laboratory Results - last 24 hr 06/25/22 06/25/22 05:22 05:23 MCV 89.8 MCH 30.3 MCHC 33.7 RDW 15.7 Plt Count 197 MPV 11.2 Immature Gran % (Auto) 0.6 H Neut % (Auto) 82.9 H Lymph % (Auto) 6.7 L [place] % (Auto) 6.5 Eos % (Auto) 3.1 Baso % (Auto) 0.2 Lymph # (Auto) 1.3 [place] # (Auto) 1.2 Eos # (Auto) 0.6 H Baso # (Auto) 0.0 Abs Immat Gran (auto) 0.11 H Absolute Neuts (auto) 15.7 H Absolute Nucleated RBC 0.000 Nucleated RBC % (auto) 0.0 Anion Gap 13 Estim Creat Clear Calc 97.2 Estimated GFR > 60 Random Glucose 130 H Calcium 8.1 L Microbiology Microbiology Results: Microbiology 06/23/22 Unknown Gram Stain - Final Peritoneal Fluid Routine Culture - Final Escherichia coli Anaerobic Culture - Preliminary Culture in progress. 06/23/22 04:16 Blood Culture - Preliminary Blood - Venous No growth after 48 hours. 06/23/22 04:16 Blood Culture - Preliminary Blood - Venous No growth after 48 hours. Blood Culture - Preliminary No growth after 48 hours. Assessment and Plan (1) CAD (coronary artery disease): Status: Acute (2) Diffuse peritonitis: Status: Acute Plan 57yo M admitted to surgery service for perforated acute appendicitis, going to OR for emergent appendectomy. PMHx notable for anterior [place] [facility] [place] A BARBRA was placed for a 100% LAD occlusion. He was started on DAPT [ASA + clopidogrel]. Echo showed ischemic cardiomyopathy with reduced LVEF of 20-30%. Medicine consult requested for management of comorbid conditions 1. CAD/ ischemic cm/ chronic HFr EF - Plavix/ASA - carvedilol + Entresto -repeat EKG without changes 2.Peritonitis -continue Zosyn -NPO as per surgery -decompression if vomiting 3.tobacco abuse - NRT SCDs, LMWH when deemed safe by surgeon Quality Stroke Does the patient have a stroke diagnosis?: No VTE Prior VTE?: No VTE Risk Level:: Surgical - high VTE Device Contraindication: N/A - Device Ordered VTE Drug Contraindication: N/A - Med Ordered
[2022-06-25] MEDS: Lactated Ringers 1,000 ML 80 ML IVCONT (14:58)
[2022-06-25] MEDS: Acetaminophen 325 MG TABLET 650 MG PO (16:21)
[2022-06-25] MEDS: Famotidine 20 MG TABLET PO (20:08)
[2022-06-26] MEDS: Piperacillin Sodium/Tazobactam 3.375 GM in 0.9 % Sodium Chloride 50 ML IV ×4 (00:38→17:26)
[2022-06-26] MEDS: Lactated Ringers 1,000 ML 80 ML IVCONT (00:38)
[2022-06-26] MEDS: HYDROmorphone HCl 0.5 MG/0.5 ML SYRINGE IVPUSH ×3 (00:42→13:41)
[2022-06-26 04:00] VITALS: BP 140/59; PULSE 68; RESP 17; TEMP 36.6; O2SAT 99
[2022-06-26 06:55] LABS: MANUAL DIFF FLAG NO
[2022-06-26 07:00] LABS: Basophils Absolute Auto 0.1 X10*3/uL (0.0-0.2); Basophils Percent Auto 0.3 % (0-2); Eosinophils Absolute Auto 0.8 X10*3/uL (0.0-0.4); Eosinophils Percent Auto 4.8 % (0-4); Hematocrit 51.3 % (42.0-52.0); Hemoglobin 17.2 g/dl (14.0-18.0); Imm Gran Abs Auto 0.09 X10*3/uL (0.00-0.03); Imm Gran Pct Auto 0.6 % (0.0-0.4); Lymphocytes Absolute Auto 2.1 X10*3/uL (1.2-4.9); Mean Corpuscular HGB Conc 33.5 g/dl (31.0-36.0); Mean Corpuscular Hemoglobin 29.9 pg (27.0-33.0); Mean Corpuscular Volume 89.2 fL (80.0-98.0); Mean Platelet Volume 11.2 fL (9.4-12.4); Monocytes Absolute Auto 1.5 X10*3/uL (0.1-1.2); Monocytes Percent Auto 9.2 % (2-11); Neutrophils Absolute Auto 11.3 x10*3/uL (2.0-8.3); Neutrophils Percent Auto 72.1 % (45-73); Platelet Count 225 X10*3/uL (160-400); Red Blood Count 5.75 X10*6/uL (4.60-5.80); Red Cell Distribution Width 15.7 % (11.0-16.0); White Blood Count 15.7 X10*3/uL (4.8-10.8)
[2022-06-26 07:20] LABS: Alanine Aminotransferase 12 U/L (0-40); Albumin Level 2.8 g/dL (3.5-5.0); Alkaline Phosphatase 73 U/L (39-117); Anion Gap 16 (12-20); Aspartate Amino Transferase 17 U/L (5-37); Bilirubin Total 0.6 mg/dL (0.0-1.0); Blood Urea Nitrogen 12 mg/dL (9-16); Calcium 8.3 mg/dL (8.4-10.2); Carbon Dioxide 22 mmol/L (22-29); Chloride 104 mmol/L (96-108); Creatinine Clr Calc Pharmacy 110.5; Estimated Glomerular Filt Rate > 60; Glucose Fasting 84 mg/dL (60-99); Sodium 137 mmol/L (135-145); Total Protein 5.4 g/dL (6.5-8.0)
[2022-06-26 07:24] VITALS: BP 125/75; PULSE 66; RESP 18; TEMP 37.2; O2SAT 95
--- NOTE | 2022-06-26 08:10 | P.PNGS_ITS ---
Subjective Subjective Date of Service: 06/26/22 Patient reports: feels better Interval history: The patient is seen with the help of his nurse who provided interpretation for things the patient could not understand. Overall, he reports he is doing better and less bloated. He started passing gas but not had a bowel movement yet. He is tolerating clear liquids and is interested in advancing his diet. He otherwise denies new problems such as pain in his chest or trouble breathing. Physical Exam Vital Signs: Vital Signs: Last Vital Signs Temp 98.9 F 06/26/22 07:24 Pulse 66 06/26/22 07:24 Resp 18 06/26/22 07:24 BP 125/75 06/26/22 07:24 Pulse Ox 95 06/26/22 07:24 O2 Del Method 06/26/22 07:24 O2 Flow Rate 2 06/25/22 00:00 BMI result Body Mass Index 22.4 his abdomen is slightly less distended but he still has appropriate incisional tenderness KEREN drainage is serous and slightly turbid Appropriate tenderness is present Objective Data Active Medications Acetaminophen (Acetaminophen 325 Mg Tablet) 650 mg PO Q6H PRN PRN Reason: Pain, Mild (Pain Scale 1-3) Last Admin: 06/25/22 16:21 Dose: 650 mg Documented By: CHENCHO Aspirin (Aspirin 81 Mg Tab.Chew) 81 mg PO DAILY [facility] Last Admin: 06/25/22 08:01 Dose: Not Given Documented By: CHENCHO Non-Admin Reason: Duplicate Order Aspirin (Aspirin Enteric Coated 81 Mg Tablet.) 81 mg PO DAILY [facility] Last Admin: 06/25/22 08:02 Dose: 81 mg Documented By: CHENCHO Atorvastatin Calcium (Atorvastatin Calcium 40 Mg Tablet) 40 mg PO DAILY [facility] Last Admin: 06/25/22 08:02 Dose: 40 mg Documented By: CHENCHO Carvedilol (Carvedilol 6.25 Mg Tablet) 6.25 mg PO BID [facility]; Protocol Last Admin: 06/25/22 20:08 Dose: 6.25 mg Documented By: SNOW Clopidogrel Bisulfate (Clopidogrel Bisulfate 75 Mg Tablet) 75 mg PO DAILY [facility] Last Admin: 06/25/22 08:02 Dose: 75 mg Documented By: CHENCHO Docusate Sodium (Docusate Sodium 100 Mg Capsule) 200 mg PO BID [facility] Last Admin: 06/25/22 20:08 Dose: 200 mg Documented By: SNOW Famotidine (Famotidine 20 Mg Tablet) 20 mg PO BID [facility] Last Admin: 06/25/22 20:08 Dose: 20 mg Documented By: SNOW Fentanyl (Fentanyl Citrate/Pf 100 Mcg/2 Ml Vial) 50 mcg IVPUSH Q5M PRN; Protocol PRN Reason: Pain, Severe (Pain Scale 7-10) Hydromorphone HCl (Hydromorphone Hcl 0.5 Mg/0.5 Ml Syringe) 0.5 mg IVPUSH Q2H PRN; Protocol PRN Reason: Pain, Severe (Pain Scale 7-10) Last Admin: 06/26/22 06:01 Dose: 0.5 mg Documented By: SNOW Piperacillin Sod/Tazobactam (Sod 3.375 gm/ Sodium Chloride) 50 mls @ 100 mls/hr IV Q6H [facility] Last Infusion: 06/26/22 07:10 Dose: 0 mls/hr Documented By: SNOW Lactated Ringer's (Lr) 1,000 mls @ 80 mls/hr IVCONT .[id number] [facility] Last Admin: 06/26/22 00:38 Dose: 80 mls/hr Documented By: SNOW Multivitamins/Vitamin C (Multivitamin Tablet) 1 tab PO DAILY [facility] Last Admin: 06/25/22 08:02 Dose: 1 tab Documented By: CHENCHO Nicotine (Nicotine 21 Mg Patch.Td24) 21 mg TRANSDERMA DAILY [facility] Last Admin: 06/25/22 08:02 Dose: 21 mg Documented By: CHENCHO Ondansetron HCl (Ondansetron Hcl 4 Mg/2 Ml Vial) 4 mg IVPUSH Q6H PRN PRN Reason: Nausea and Vomiting Ondansetron HCl (Ondansetron Hcl 4 Mg/2 Ml Vial) 4 mg IVPUSH ONCE PRN PRN Reason: Nausea and Vomiting Oxycodone HCl (Oxycodone Hcl Immed Release 5 Mg Tablet) 5 mg PO Q4H PRN PRN Reason: Pain, Moderate (Pain Scale 4-6 Sacubitril/Valsartan (Sacubitril/Valsartan 24/26 1 Tab Tablet) 1 tab PO BID [facility]; Protocol Last Admin: 06/25/22 20:08 Dose: 1 tab Documented By: SNOW Labs CBC & Chem 7: 06/26/22 05:48 06/26/22 05:48 Labs: Laboratory Results - last 24 hr 06/26/22 06/26/22 05:48 05:48 MCV 89.2 MCH 29.9 MCHC 33.5 RDW 15.7 Plt Count 225 MPV 11.2 Immature Gran % (Auto) 0.6 H Neut % (Auto) 72.1 Lymph % (Auto) 13.0 L [place] % (Auto) 9.2 Eos % (Auto) 4.8 H Baso % (Auto) 0.3 Lymph # (Auto) 2.1 [place] # (Auto) 1.5 H Eos # (Auto) 0.8 H Baso # (Auto) 0.1 Abs Immat Gran (auto) 0.09 H Absolute Neuts (auto) 11.3 H Absolute Nucleated RBC 0.000 Nucleated RBC % (auto) 0.0 Anion Gap 16 Estim Creat Clear Calc 110.5 Estimated GFR > 60 Fasting Glucose 84 Calcium 8.3 L Total Bilirubin 0.6 AST 17 ALT 12 Alkaline Phosphatase 73 D Total Protein 5.4 L Albumin 2.8 L D Microbiology Microbiology Results: Microbiology 06/23/22 Unknown Gram Stain - Final Peritoneal Fluid Routine Culture - Final Escherichia coli Anaerobic Culture - Preliminary Culture in progress. 06/23/22 04:16 Blood Culture - Preliminary Blood - Venous No growth after 48 hours. 06/23/22 04:16 Blood Culture - Preliminary Blood - Venous No growth after 48 hours. Blood Culture - Preliminary No growth after 48 hours. Procedures Date of Service Date of Service: 06/26/22 Progress Note: A&P Assessment and plan (1) Diffuse peritonitis: Status: Acute Assessment and Plan: Advanced diet Trend labs; wbc trending down Continue IV antibiotics (2) Perforated appendix: Status: Acute (3) Tobacco abuse: Status: Acute Time Spent With Patient Time: Total time spent is greater than 50% in coordination of care (as documented) at patient's floor/unit and/or counseling patient: Quality Stroke Does the patient have a stroke diagnosis?: No VTE Prior VTE?: No VTE Risk Level:: Surgical - high VTE Device Contraindication: N/A - Device Ordered VTE Drug Contraindication: N/A - Med Ordered
[2022-06-26] MEDS: Famotidine 20 MG TABLET PO ×2 (09:09→22:03)
[2022-06-26] MEDS: Clopidogrel Bisulfate 75 MG TABLET PO (09:09)
[2022-06-26] MEDS: Aspirin Enteric Coated 81 MG TABLET.DR PO (09:09)
[2022-06-26] MEDS: Multivitamin TABLET 1 TAB PO (09:09)
[2022-06-26] MEDS: Atorvastatin Calcium 40 MG TABLET PO (09:10)
[2022-06-26] MEDS: Docusate Sodium 100 MG CAPSULE 200 MG PO ×2 (09:10→22:03)
[2022-06-26] MEDS: Sacubitril/Valsartan 24/26 1 TAB TABLET PO ×2 (09:10→22:03)
[2022-06-26] MEDS: carvediloL 6.25 MG TABLET PO ×2 (09:10→22:03)
[2022-06-26] MEDS: Nicotine 21 MG PATCH.TD24 TRANSDERMA (09:10)
--- NOTE | 2022-06-26 12:28 | HO.PM.IMPN ---
Subjective Subjective Date of Service: 06/26/22 Interval History: states feels somewhat better this a.m.. Passing gas Review of Systems via senior mechanical project manager: Denies chest pain Denies shortness of breath Denies nausea vomiting diarrhea Denies fever chills Physical Exam Vital Signs: Vital Signs: Last Vital Signs Temp 98.9 F 06/26/22 07:24 Pulse 66 06/26/22 07:24 Resp 18 06/26/22 07:24 BP 125/75 06/26/22 07:24 Pulse Ox 95 06/26/22 07:24 O2 Del Method 06/26/22 07:24 O2 Flow Rate 2 06/25/22 00:00 BMI result Body Mass Index 22.4 Const: Other: awake alert no acute distress Resp: Other: clear to auscultation bilaterally no rales rhonchi or wheezes Cardio: Other: no S4; positive S1-S2; no S3 murmurs rubs GI: Other: incisional tenderness noted ;tympanitic ... BSquiet .Serous drainage in KEREN Extrem: Other: no edema bilaterally Objective Data Active Medications Acetaminophen (Acetaminophen 325 Mg Tablet) 650 mg PO Q6H PRN PRN Reason: Pain, Mild (Pain Scale 1-3) Last Admin: 06/25/22 16:21 Dose: 650 mg Documented By: CHENCHO Aspirin (Aspirin 81 Mg Tab.Chew) 81 mg PO DAILY [facility] Last Admin: 06/26/22 09:14 Dose: Not Given Documented By: CHENCHO Non-Admin Reason: Duplicate Order Aspirin (Aspirin Enteric Coated 81 Mg Tablet.) 81 mg PO DAILY [facility] Last Admin: 06/26/22 09:09 Dose: 81 mg Documented By: CHENCHO Atorvastatin Calcium (Atorvastatin Calcium 40 Mg Tablet) 40 mg PO DAILY [facility] Last Admin: 06/26/22 09:10 Dose: 40 mg Documented By: CHENCHO Carvedilol (Carvedilol 6.25 Mg Tablet) 6.25 mg PO BID [facility]; Protocol Last Admin: 06/26/22 09:10 Dose: 6.25 mg Documented By: CHENCHO Clopidogrel Bisulfate (Clopidogrel Bisulfate 75 Mg Tablet) 75 mg PO DAILY [facility] Last Admin: 06/26/22 09:09 Dose: 75 mg Documented By: CHENCHO Docusate Sodium (Docusate Sodium 100 Mg Capsule) 200 mg PO BID [facility] Last Admin: 06/26/22 09:10 Dose: 200 mg Documented By: CHENCHO Famotidine (Famotidine 20 Mg Tablet) 20 mg PO BID [facility] Last Admin: 06/26/22 09:09 Dose: 20 mg Documented By: CHENCHO Fentanyl (Fentanyl Citrate/Pf 100 Mcg/2 Ml Vial) 50 mcg IVPUSH Q5M PRN; Protocol PRN Reason: Pain, Severe (Pain Scale 7-10) Hydromorphone HCl (Hydromorphone Hcl 0.5 Mg/0.5 Ml Syringe) 0.5 mg IVPUSH Q2H PRN; Protocol PRN Reason: Pain, Severe (Pain Scale 7-10) Last Admin: 06/26/22 06:01 Dose: 0.5 mg Documented By: SNOW Piperacillin Sod/Tazobactam (Sod 3.375 gm/ Sodium Chloride) 50 mls @ 100 mls/hr IV Q6H [facility] Last Admin: 06/26/22 12:06 Dose: 100 mls/hr Documented By: CHENCHO Lactated Ringer's (Lr) 1,000 mls @ 30 mls/hr IVCONT .Q24H [facility] Last Admin: 06/26/22 00:38 Dose: 80 mls/hr Documented By: SNOW Multivitamins/Vitamin C (Multivitamin Tablet) 1 tab PO DAILY [facility] Last Admin: 06/26/22 09:09 Dose: 1 tab Documented By: CHENCHO Nicotine (Nicotine 21 Mg Patch.Td24) 21 mg TRANSDERMA DAILY [facility] Last Admin: 06/26/22 09:10 Dose: 21 mg Documented By: CHENCHO Ondansetron HCl (Ondansetron Hcl 4 Mg/2 Ml Vial) 4 mg IVPUSH Q6H PRN PRN Reason: Nausea and Vomiting Ondansetron HCl (Ondansetron Hcl 4 Mg/2 Ml Vial) 4 mg IVPUSH ONCE PRN PRN Reason: Nausea and Vomiting Oxycodone HCl (Oxycodone Hcl Immed Release 5 Mg Tablet) 5 mg PO Q4H PRN PRN Reason: Pain, Moderate (Pain Scale 4-6 Sacubitril/Valsartan (Sacubitril/Valsartan 24/ 1 Tab Tablet) 1 tab PO BID [facility]; Protocol Last Admin: 06/26/22 09:10 Dose: 1 tab Documented By: CHENCHO Labs CBC & Chem 7: 06/26/22 05:48 06/26/22 05:48 Labs: Laboratory Results - last 24 hr 06/26/22 06/26/22 05:48 05:48 MCV 89.2 MCH 29.9 MCHC 33.5 RDW 15.7 Plt Count 225 MPV 11.2 Immature Gran % (Auto) 0.6 H Neut % (Auto) 72.1 Lymph % (Auto) 13.0 L [place] % (Auto) 9.2 Eos % (Auto) 4.8 H Baso % (Auto) 0.3 Lymph # (Auto) 2.1 [place] # (Auto) 1.5 H Eos # (Auto) 0.8 H Baso # (Auto) 0.1 Abs Immat Gran (auto) 0.09 H Absolute Neuts (auto) 11.3 H Absolute Nucleated RBC 0.000 Nucleated RBC % (auto) 0.0 Anion Gap 16 Estim Creat Clear Calc 110.5 Estimated GFR > 60 Fasting Glucose 84 Calcium 8.3 L Total Bilirubin 0.6 AST 17 ALT 12 Alkaline Phosphatase 73 D Total Protein 5.4 L Albumin 2.8 L D Microbiology Microbiology Results: Microbiology 06/23/22 Unknown Gram Stain - Final Peritoneal Fluid Routine Culture - Final Escherichia coli Anaerobic Culture - Preliminary Culture in progress. Assessment and Plan (1) CAD (coronary artery disease): Status: Acute (2) Diffuse peritonitis: Status: Acute Plan 57yo M admitted to surgery service for perforated acute appendicitis, going to OR for emergent appendectomy. PMHx notable for anterior STEMI for which he was at [facility] 04/30-05/02/22. A BARBRA was placed for a 100% LAD occlusion. He was started on DAPT [ASA + clopidogrel]. Echo showed ischemic cardiomyopathy with reduced LVEF of 20-30%. Medicine consult requested for management of comorbid conditions 1. CAD/ ischemic cm/ chronic HFr EF - Plavix/ASA - carvedilol + Entresto -repeat EKG without changes.... asymptomatic 2.Peritonitis -continue Zosyn - advanced diet as tolerated 3.tobacco abuse - NRT SCDs, LMWH when deemed safe by surgeon Quality Stroke Does the patient have a stroke diagnosis?: No VTE Prior VTE?: No VTE Risk Level:: Surgical - high VTE Device Contraindication: N/A - Device Ordered VTE Drug Contraindication: N/A - Med Ordered
[2022-06-26 15:48] VITALS: BP 137/67; PULSE 64; RESP 18; TEMP 36.1; O2SAT 96
[2022-06-26 20:00] VITALS: BP 122/67; PULSE 67; RESP 16; TEMP 36.2; O2SAT 93
[2022-06-26 23:43] VITALS: BP 177/76; PULSE 66; RESP 18; TEMP 36.2; O2SAT 94
[2022-06-27] VITALS (8 sets, daily range): BP systolic 107–141; BP diastolic 60–89; PULSE 61–93; RESP 17–18; TEMP 36.3–37.4; O2SAT 94–99
[2022-06-27] MEDS: Lactated Ringers 1,000 ML 30 ML IVCONT (00:57)
[2022-06-27] MEDS: Piperacillin Sodium/Tazobactam 3.375 GM in 0.9 % Sodium Chloride 50 ML IV ×4 (00:57→18:08)
[2022-06-27 05:51] LABS: Basophils Percent Auto 0.3 % (0-2); Eosinophils Absolute Auto 0.5 X10*3/uL (0.0-0.4); Hematocrit 45.6 % (42.0-52.0); Hemoglobin 15.5 g/dl (14.0-18.0); Imm Gran Abs Auto 0.07 X10*3/uL (0.00-0.03); Imm Gran Pct Auto 0.5 % (0.0-0.4); Lymphocytes Absolute Auto 2.9 X10*3/uL (1.2-4.9); MANUAL DIFF FLAG SCAN; Mean Corpuscular Hemoglobin 29.9 pg (27.0-33.0); Mean Platelet Volume 10.5 fL (9.4-12.4); Monocytes Absolute Auto 1.6 X10*3/uL (0.1-1.2); Neutrophils Absolute Auto 7.9 x10*3/uL (2.0-8.3); Neutrophils Percent Auto 61.2 % (45-73); Platelet Count 240 X10*3/uL (160-400); Red Blood Count 5.18 X10*6/uL (4.60-5.80); Red Cell Distribution Width 15.2 % (11.0-16.0); SCAN SMEAR FLAG 1
[2022-06-27 06:17] LABS: Alanine Aminotransferase 10 U/L (0-40); Albumin Level 2.6 g/dL (3.5-5.0); Alkaline Phosphatase 65 U/L (39-117); Anion Gap 14 (12-20); Aspartate Amino Transferase 15 U/L (5-37); Bilirubin Total 0.5 mg/dL (0.0-1.0); Blood Urea Nitrogen 9 mg/dL (9-16); Carbon Dioxide 24 mmol/L (22-29); Chloride 108 mmol/L (96-108); Creatinine Clr Calc Pharmacy 99.9; Estimated Glomerular Filt Rate > 60; Glucose Fasting 96 mg/dL (60-99); Potassium 4.8 mmol/L (3.3-5.1); Sodium 141 mmol/L (135-145); Total Protein 4.6 g/dL (6.5-8.0)
[2022-06-27 06:19] LABS: SLIDE REVIEW VERIFIED
[2022-06-27] MEDS: HYDROmorphone HCl 0.5 MG/0.5 ML SYRINGE IVPUSH ×2 (06:44→20:21)
[2022-06-27] MEDS: Sacubitril/Valsartan 24/26 1 TAB TABLET PO ×2 (08:14→20:18)
[2022-06-27] MEDS: Famotidine 20 MG TABLET PO ×2 (08:14→20:18)
[2022-06-27] MEDS: Aspirin Enteric Coated 81 MG TABLET.DR PO (08:14)
[2022-06-27] MEDS: Multivitamin TABLET 1 TAB PO (08:14)
[2022-06-27] MEDS: Clopidogrel Bisulfate 75 MG TABLET PO (08:14)
[2022-06-27] MEDS: Docusate Sodium 100 MG CAPSULE 200 MG PO ×2 (08:14→20:18)
[2022-06-27] MEDS: Atorvastatin Calcium 40 MG TABLET PO (08:14)
[2022-06-27] MEDS: Nicotine 21 MG PATCH.TD24 TRANSDERMA (08:15)
[2022-06-27] MEDS: carvediloL 6.25 MG TABLET PO ×2 (08:15→20:18)
[2022-06-27] MEDS: oxyCODONE HCl Immed Release 5 MG TABLET PO ×2 (12:41→19:13)
--- NOTE | 2022-06-27 13:12 | HO.PM.IMPN ---
Subjective Subjective Date of Service: 06/27/22 Interval History: tolerating diet. States bowel movement last night Review of Systems via director of vendor management: Denies chest pain Denies shortness of breath Denies nausea vomiting diarrhea Denies fever chills Physical Exam Vital Signs: Vital Signs: Last Vital Signs Temp 98.2 F 06/27/22 12:00 Pulse 61 06/27/22 12:00 Resp 18 06/27/22 12:00 BP 118/62 06/27/22 12:00 Pulse Ox 98 06/27/22 12:00 O2 Del Method 06/27/22 12:00 O2 Flow Rate 2 06/25/22 00:00 BMI result Body Mass Index 22.4 Const: Other: awake alert no acute distress Resp: Other: clear to auscultation bilaterally no rales rhonchi or wheezes Cardio: Other: no S4; positive S1-S2; no S3 murmurs rubs GI: Other: incisional tenderness noted ;tympanitic ... BSquiet .Serous drainage in KEREN Extrem: Other: no edema bilaterally Objective Data Active Medications Acetaminophen (Acetaminophen 325 Mg Tablet) 650 mg PO Q6H PRN PRN Reason: Pain, Mild (Pain Scale 1-3) Last Admin: 06/25/22 16:21 Dose: 650 mg Documented By: CHENCHO Aspirin (Aspirin 81 Mg Tab.Chew) 81 mg PO DAILY [facility] Last Admin: 06/27/22 08:15 Dose: Not Given Documented By: ALBIN Non-Admin Reason: Duplicate Order Aspirin (Aspirin Enteric Coated 81 Mg Tablet.Dr) 81 mg PO DAILY [facility] Last Admin: 06/27/22 08:14 Dose: 81 mg Documented By: ALBIN Atorvastatin Calcium (Atorvastatin Calcium 40 Mg Tablet) 40 mg PO DAILY [facility] Last Admin: 06/27/22 08:14 Dose: 40 mg Documented By: ALBIN Carvedilol (Carvedilol 6.25 Mg Tablet) 6.25 mg PO BID [facility]; Protocol Last Admin: 06/27/22 08:15 Dose: 6.25 mg Documented By: ALBIN Clopidogrel Bisulfate (Clopidogrel Bisulfate 75 Mg Tablet) 75 mg PO DAILY [facility] Last Admin: 06/27/22 08:14 Dose: 75 mg Documented By: ALBIN Docusate Sodium (Docusate Sodium 100 Mg Capsule) 200 mg PO BID [facility] Last Admin: 06/27/22 08:14 Dose: 200 mg Documented By: ALBIN Famotidine (Famotidine 20 Mg Tablet) 20 mg PO BID [facility] Last Admin: 06/27/22 08:14 Dose: 20 mg Documented By: ALBIN Fentanyl (Fentanyl Citrate/Pf 100 Mcg/2 Ml Vial) 50 mcg IVPUSH Q5M PRN; Protocol PRN Reason: Pain, Severe (Pain Scale 7-10) Hydromorphone HCl (Hydromorphone Hcl 0.5 Mg/0.5 Ml Syringe) 0.5 mg IVPUSH Q2H PRN; Protocol PRN Reason: Pain, Severe (Pain Scale 7-10) Last Admin: 06/27/22 06:44 Dose: 0.5 mg Documented By: KIMBERLY Piperacillin Sod/Tazobactam (Sod 3.375 gm/ Sodium Chloride) 50 mls @ 100 mls/hr IV Q6H [facility] Last Admin: 06/27/22 12:39 Dose: 100 mls/hr Documented By: ALBIN Lactated Ringer's (Lr) 1,000 mls @ 30 mls/hr IVCONT .Q24H [facility] Last Admin: 06/27/22 00:57 Dose: 30 mls/hr Documented By: KIMBERLY Multivitamins/Vitamin C (Multivitamin Tablet) 1 tab PO DAILY [facility] Last Admin: 06/27/22 08:14 Dose: 1 tab Documented By: ALBIN Nicotine (Nicotine 21 Mg Patch.Td24) 21 mg TRANSDERMA DAILY [facility] Last Admin: 06/27/22 08:15 Dose: 21 mg Documented By: ALBIN Ondansetron HCl (Ondansetron Hcl 4 Mg/2 Ml Vial) 4 mg IVPUSH Q6H PRN PRN Reason: Nausea and Vomiting Ondansetron HCl (Ondansetron Hcl 4 Mg/2 Ml Vial) 4 mg IVPUSH ONCE PRN PRN Reason: Nausea and Vomiting Oxycodone HCl (Oxycodone Hcl Immed Release 5 Mg Tablet) 5 mg PO Q4H PRN PRN Reason: Pain, Moderate (Pain Scale 4-6 Last Admin: 06/27/22 12:41 Dose: 5 mg Documented By: ALBIN Sacubitril/Valsartan (Sacubitril/Valsartan 1 Tab Tablet) 1 tab PO BID [facility]; Protocol Last Admin: 06/27/22 08:14 Dose: 1 tab Documented By: ALBIN Labs CBC & Chem 7: 06/27/22 05:28 06/27/22 05:28 Labs: Laboratory Results - last 24 hr 06/27/22 06/27/22 05:28 05:28 MCV 88.0 MCH 29.9 MCHC 34.0 RDW 15.2 Plt Count 240 MPV 10.5 Immature Gran % (Auto) 0.5 H Neut % (Auto) 61.2 Lymph % (Auto) 22.0 [place] % (Auto) 12.0 H Eos % (Auto) 4.0 Baso % (Auto) 0.3 Lymph # (Auto) 2.9 [place] # (Auto) 1.6 H Eos # (Auto) 0.5 H Baso # (Auto) 0.0 Abs Immat Gran (auto) 0.07 H Absolute Neuts (auto) 7.9 Absolute Nucleated RBC 0.000 Nucleated RBC % (auto) 0.0 Smear Tech's Comments VERIFIED Anion Gap 14 Estim Creat Clear Calc 99.9 Estimated GFR > 60 Fasting Glucose 96 Calcium 8.0 L Total Bilirubin 0.5 AST 15 ALT 10 Alkaline Phosphatase 65 Total Protein 4.6 L Albumin 2.6 L Microbiology Microbiology Results: Microbiology 06/23/22 Unknown Gram Stain - Final Peritoneal Fluid Routine Culture - Final Escherichia coli Anaerobic Culture - Preliminary Culture in progress. Assessment and Plan (1) CAD (coronary artery disease): Status: Acute (2) Appendicitis: Status: Acute Plan 57yo M admitted to surgery service for perforated acute appendicitis, going to OR for emergent appendectomy. PMHx notable for anterior STEMI for which he was at [facility] 04/30-05/02/22. A BARBRA was placed for a 100% LAD occlusion. He was started on DAPT [ASA + clopidogrel]. Echo showed ischemic cardiomyopathy with reduced LVEF of 20-30%. Medicine consult requested for management of comorbid conditions 1. CAD/ ischemic cm/ chronic HFr EF - Plavix/ASA - carvedilol + Entresto -repeat EKG without changes.... asymptomatic 2.Peritonitis -continue Zosyn - tolerating diet 3.tobacco abuse - NRT SCDs, LMWH when deemed safe by surgeon Quality Stroke Does the patient have a stroke diagnosis?: No VTE Prior VTE?: No VTE Risk Level:: Surgical - high VTE Device Contraindication: N/A - Device Ordered VTE Drug Contraindication: N/A - Med Ordered
--- NOTE | 2022-06-27 13:14 | PM.PNGS ---
Subjective Subjective Date of Service: 06/27/22 Interval history: The patient is seen with a hospital nitrocellulose operator. He reports he is passing and tolerating his diet, however his appetite is poor and he reports that he feels like there may be and narrowing or blockage since he is unable to eat as much as usual. He otherwise denies chest pain, focal neuro complaints, difficulty breathing or shortness of breath. When I came up to contact him, he was walking the halls without issue. Physical Exam Vital Signs: Vital Signs: Last Vital Signs Temp 98.2 F 06/27/22 12:00 Pulse 61 06/27/22 12:00 Resp 18 06/27/22 12:00 BP 118/62 06/27/22 12:00 Pulse Ox 98 06/27/22 12:00 O2 Del Method 06/27/22 12:00 O2 Flow Rate 2 06/25/22 00:00 BMI result Body Mass Index 22.4 On exam, he is nontoxic Sclera are anicteric Abdomen is soft with appropriate, minimal incisional tenderness KEREN continues to be straw/serous, non purulence and non feculent I reviewed pathology with the help of the nitrocellulose operator and explained that he had a perforated appendix with no evidence of malignancy Objective Data Active Medications Acetaminophen (Acetaminophen 325 Mg Tablet) 650 mg PO Q6H PRN PRN Reason: Pain, Mild (Pain Scale 1-3) Last Admin: 06/25/22 16:21 Dose: 650 mg Documented By: CHENCHO Aspirin (Aspirin 81 Mg Tab.Chew) 81 mg PO DAILY [facility] Last Admin: 06/27/22 08:15 Dose: Not Given Documented By: ALBIN Non-Admin Reason: Duplicate Order Aspirin (Aspirin Enteric Coated 81 Mg Tablet.Dr) 81 mg PO DAILY [facility] Last Admin: 06/27/22 08:14 Dose: 81 mg Documented By: ALBIN Atorvastatin Calcium (Atorvastatin Calcium 40 Mg Tablet) 40 mg PO DAILY [facility] Last Admin: 06/27/22 08:14 Dose: 40 mg Documented By: ALBIN Carvedilol (Carvedilol 6.25 Mg Tablet) 6.25 mg PO BID [facility]; Protocol Last Admin: 06/27/22 08:15 Dose: 6.25 mg Documented By: ALBIN Clopidogrel Bisulfate (Clopidogrel Bisulfate 75 Mg Tablet) 75 mg PO DAILY [facility] Last Admin: 06/27/22 08:14 Dose: 75 mg Documented By: ALBIN Docusate Sodium (Docusate Sodium 100 Mg Capsule) 200 mg PO BID [facility] Last Admin: 06/27/22 08:14 Dose: 200 mg Documented By: ALBIN Famotidine (Famotidine 20 Mg Tablet) 20 mg PO BID [facility] Last Admin: 06/27/22 08:14 Dose: 20 mg Documented By: ALBIN Hydromorphone HCl (Hydromorphone Hcl 0.5 Mg/0.5 Ml Syringe) 0.5 mg IVPUSH Q2H PRN; Protocol PRN Reason: Pain, Severe (Pain Scale 7-10) Last Admin: 06/27/22 06:44 Dose: 0.5 mg Documented By: KIMBERLY Piperacillin Sod/Tazobactam (Sod 3.375 gm/ Sodium Chloride) 50 mls @ 100 mls/hr IV Q6H [facility] Last Admin: 06/27/22 12:39 Dose: 100 mls/hr Documented By: ALBIN Lactated Ringer's (Lr) 1,000 mls @ 30 mls/hr IVCONT .Q24H [facility] Last Admin: 06/27/22 00:57 Dose: 30 mls/hr Documented By: KIMBERLY Multivitamins/Vitamin C (Multivitamin Tablet) 1 tab PO DAILY [facility] Last Admin: 06/27/22 08:14 Dose: 1 tab Documented By: ALBIN Nicotine (Nicotine 21 Mg Patch.Td24) 21 mg TRANSDERMA DAILY [facility] Last Admin: 06/27/22 08:15 Dose: 21 mg Documented By: ALBIN Ondansetron HCl (Ondansetron Hcl 4 Mg/2 Ml Vial) 4 mg IVPUSH Q6H PRN PRN Reason: Nausea and Vomiting Ondansetron HCl (Ondansetron Hcl 4 Mg/2 Ml Vial) 4 mg IVPUSH ONCE PRN PRN Reason: Nausea and Vomiting Oxycodone HCl (Oxycodone Hcl Immed Release 5 Mg Tablet) 5 mg PO Q4H PRN PRN Reason: Pain, Moderate (Pain Scale 4-6 Last Admin: 06/27/22 12:41 Dose: 5 mg Documented By: ALBIN Sacubitril/Valsartan (Sacubitril/Valsartan 1 Tab Tablet) 1 tab PO BID [facility]; Protocol Last Admin: 06/27/22 08:14 Dose: 1 tab Documented By: ALBIN Labs CBC & Chem 7: 06/27/22 05:28 06/27/22 05:28 Labs: Laboratory Results - last 24 hr 06/27/22 06/27/22 05:28 05:28 MCV 88.0 MCH 29.9 MCHC 34.0 RDW 15.2 Plt Count 240 MPV 10.5 Immature Gran % (Auto) 0.5 H Neut % (Auto) 61.2 Lymph % (Auto) 22.0 [place] % (Auto) 12.0 H Eos % (Auto) 4.0 Baso % (Auto) 0.3 Lymph # (Auto) 2.9 [place] # (Auto) 1.6 H Eos # (Auto) 0.5 H Baso # (Auto) 0.0 Abs Immat Gran (auto) 0.07 H Absolute Neuts (auto) 7.9 Absolute Nucleated RBC 0.000 Nucleated RBC % (auto) 0.0 Smear Tech's Comments VERIFIED Anion Gap 14 Estim Creat Clear Calc 99.9 Estimated GFR > 60 Fasting Glucose 96 Calcium 8.0 L Total Bilirubin 0.5 AST 15 ALT 10 Alkaline Phosphatase 65 Total Protein 4.6 L Albumin 2.6 L Microbiology Microbiology Results: Microbiology 06/23/22 Unknown Gram Stain - Final Peritoneal Fluid Routine Culture - Final Escherichia coli Anaerobic Culture - Preliminary Culture in progress. Procedures Date of Service Date of Service: 06/27/22 Progress Note: A&P Assessment and plan (1) Diffuse peritonitis: Status: Acute (2) Perforated appendix: Status: Acute (3) Tobacco abuse: Status: Acute Plan With the help of the nitrocellulose operator, I explained to the patient that he is making steady progress in his white blood cell count continues to normalize. If this continues, he should be set for discharge by the weekend. He is tolerating his diet and the importance of maintaining adequate protein and cake was also discussed and apparently understood. Will consult discharge planning since he will likely need his KEREN for several more days and will need VNA. Time Spent With Patient Time: Total time spent is greater than 50% in coordination of care (as documented) at patient's floor/unit and/or counseling patient: Quality Stroke Does the patient have a stroke diagnosis?: No VTE Prior VTE?: No VTE Risk Level:: Surgical - high VTE Device Contraindication: N/A - Device Ordered VTE Drug Contraindication: N/A - Med Ordered
[2022-06-28] MEDS: Piperacillin Sodium/Tazobactam 3.375 GM in 0.9 % Sodium Chloride 50 ML IV ×4 (00:10→17:31)
[2022-06-28 03:40] VITALS: BP 108/63; PULSE 65; RESP 18; TEMP 36.7; O2SAT 94
[2022-06-28 05:49] LABS: Basophils Absolute Auto 0.1 X10*3/uL (0.0-0.2); Basophils Percent Auto 0.4 % (0-2); Eosinophils Absolute Auto 0.4 X10*3/uL (0.0-0.4); Eosinophils Percent Auto 3.3 % (0-4); Hematocrit 45.1 % (42.0-52.0); Hemoglobin 15.4 g/dl (14.0-18.0); Imm Gran Abs Auto 0.12 X10*3/uL (0.00-0.03); Imm Gran Pct Auto 0.9 % (0.0-0.4); Lymphocytes Absolute Auto 2.8 X10*3/uL (1.2-4.9); Lymphocytes Percent Auto 20.6 % (20-40); MANUAL DIFF FLAG SCAN; Mean Corpuscular HGB Conc 34.1 g/dl (31.0-36.0); Mean Corpuscular Volume 87.7 fL (80.0-98.0); Mean Platelet Volume 10.5 fL (9.4-12.4); Monocytes Absolute Auto 1.4 X10*3/uL (0.1-1.2); Monocytes Percent Auto 10.4 % (2-11); Neutrophils Absolute Auto 8.7 x10*3/uL (2.0-8.3); Neutrophils Percent Auto 64.4 % (45-73); Platelet Count 213 X10*3/uL (160-400); Red Blood Count 5.14 X10*6/uL (4.60-5.80); Red Cell Distribution Width 15.2 % (11.0-16.0); SCAN SMEAR FLAG 1; White Blood Count 13.5 X10*3/uL (4.8-10.8)
[2022-06-28 06:06] LABS: Alanine Aminotransferase 17 U/L (0-40); Albumin Level 2.5 g/dL (3.5-5.0); Alkaline Phosphatase 73 U/L (39-117); Anion Gap 14 (12-20); Aspartate Amino Transferase 23 U/L (5-37); Bilirubin Total 0.5 mg/dL (0.0-1.0); Blood Urea Nitrogen 9 mg/dL (9-16); Carbon Dioxide 25 mmol/L (22-29); Chloride 107 mmol/L (96-108); Creatinine Clr Calc Pharmacy 101.3; Estimated Glomerular Filt Rate > 60; Glucose Fasting 102 mg/dL (60-99); Potassium 4.2 mmol/L (3.3-5.1); Sodium 142 mmol/L (135-145); Total Protein 4.7 g/dL (6.5-8.0)
[2022-06-28 06:11] LABS: SLIDE REVIEW VERIFIED
[2022-06-28] MEDS: Nicotine 21 MG PATCH.TD24 TRANSDERMA (07:31)
[2022-06-28] MEDS: Atorvastatin Calcium 40 MG TABLET PO (07:31)
[2022-06-28] MEDS: Sacubitril/Valsartan 24/26 1 TAB TABLET PO ×2 (07:31→20:17)
[2022-06-28] MEDS: carvediloL 6.25 MG TABLET PO ×2 (07:32→20:16)
[2022-06-28] MEDS: Clopidogrel Bisulfate 75 MG TABLET PO (07:32)
[2022-06-28] MEDS: Famotidine 20 MG TABLET PO ×2 (07:32→20:17)
[2022-06-28] MEDS: Aspirin Enteric Coated 81 MG TABLET.DR PO (07:32)
[2022-06-28] MEDS: Docusate Sodium 100 MG CAPSULE 200 MG PO ×2 (07:32→20:17)
[2022-06-28] MEDS: oxyCODONE HCl Immed Release 5 MG TABLET PO ×2 (07:33→16:41)
[2022-06-28] MEDS: Multivitamin TABLET 1 TAB PO (07:33)
[2022-06-28 07:45] VITALS: BP 125/74; PULSE 67; RESP 17; TEMP 36.5; O2SAT 93
--- NOTE | 2022-06-28 10:54 | PM.PNGS ---
Subjective Subjective Date of Service: 06/28/22 Patient reports: no new complaints and feels better Interval history: The patient reports he is tolerating his diet. Will need to return with plasticator at a later time today Physical Exam Vital Signs: Vital Signs: Last Vital Signs Temp 97.7 F 06/28/22 07:45 Pulse 67 06/28/22 07:45 Resp 17 06/28/22 07:45 BP 125/74 06/28/22 07:45 Pulse Ox 93 06/28/22 07:45 O2 Del Method 06/28/22 07:45 O2 Flow Rate 2 06/25/22 00:00 BMI result Body Mass Index 22.4 KEREN Output is still significant and serous Abdomen is soft and nontender Objective Data Active Medications Acetaminophen (Acetaminophen 325 Mg Tablet) 650 mg PO Q6H PRN PRN Reason: Pain, Mild (Pain Scale 1-3) Last Admin: 06/25/22 16:21 Dose: 650 mg Documented By: CHENCHO Aspirin (Aspirin 81 Mg Tab.Chew) 81 mg PO DAILY [facility] Last Admin: 06/28/22 07:59 Dose: Not Given Documented By: ALBIN Non-Admin Reason: Duplicate Order Aspirin (Aspirin Enteric Coated 81 Mg Tablet.Dr) 81 mg PO DAILY [facility] Last Admin: 06/28/22 07:32 Dose: 81 mg Documented By: ALBIN Atorvastatin Calcium (Atorvastatin Calcium 40 Mg Tablet) 40 mg PO DAILY [facility] Last Admin: 06/28/22 07:31 Dose: 40 mg Documented By: ALBIN Carvedilol (Carvedilol 6.25 Mg Tablet) 6.25 mg PO BID [facility]; Protocol Last Admin: 06/28/22 07:32 Dose: 6.25 mg Documented By: ALBIN Clopidogrel Bisulfate (Clopidogrel Bisulfate 75 Mg Tablet) 75 mg PO DAILY [facility] Last Admin: 06/28/22 07:32 Dose: 75 mg Documented By: ALBIN Docusate Sodium (Docusate Sodium 100 Mg Capsule) 200 mg PO BID [facility] Last Admin: 06/28/22 07:32 Dose: 200 mg Documented By: ALBIN Famotidine (Famotidine 20 Mg Tablet) 20 mg PO BID [facility] Last Admin: 06/28/22 07:32 Dose: 20 mg Documented By: ALBIN Hydromorphone HCl (Hydromorphone Hcl 0.5 Mg/0.5 Ml Syringe) 0.5 mg IVPUSH Q2H PRN; Protocol PRN Reason: Pain, Severe (Pain Scale 7-10) Last Admin: 06/27/22 20:21 Dose: 0.5 mg Documented By: WASHINGTON Piperacillin Sod/Tazobactam (Sod 3.375 gm/ Sodium Chloride) 50 mls @ 100 mls/hr IV Q6H [facility] Last Infusion: 06/28/22 06:26 Dose: 0 mls/hr Documented By: WASHINGTON Multivitamins/Vitamin C (Multivitamin Tablet) 1 tab PO DAILY [facility] Last Admin: 06/28/22 07:33 Dose: 1 tab Documented By: ALBIN Nicotine (Nicotine 21 Mg Patch.Td24) 21 mg TRANSDERMA DAILY [facility] Last Admin: 06/28/22 07:31 Dose: 21 mg Documented By: ALBIN Ondansetron HCl (Ondansetron Hcl 4 Mg/2 Ml Vial) 4 mg IVPUSH Q6H PRN PRN Reason: Nausea and Vomiting Ondansetron HCl (Ondansetron Hcl 4 Mg/2 Ml Vial) 4 mg IVPUSH ONCE PRN PRN Reason: Nausea and Vomiting Oxycodone HCl (Oxycodone Hcl Immed Release 5 Mg Tablet) 5 mg PO Q4H PRN PRN Reason: Pain, Moderate (Pain Scale 4-6 Last Admin: 06/28/22 07:33 Dose: 5 mg Documented By: ALBIN Sacubitril/Valsartan (Sacubitril/Valsartan 1 Tab Tablet) 1 tab PO BID [facility]; Protocol Last Admin: 06/28/22 07:31 Dose: 1 tab Documented By: ALBIN Labs CBC & Chem 7: 06/28/22 05:08 06/28/22 05:08 Labs: Laboratory Results - last 24 hr 06/28/22 06/28/22 05:08 05:08 MCV 87.7 MCH 30.0 MCHC 34.1 RDW 15.2 Plt Count 213 MPV 10.5 Immature Gran % (Auto) 0.9 H Neut % (Auto) 64.4 Lymph % (Auto) 20.6 [place] % (Auto) 10.4 Eos % (Auto) 3.3 Baso % (Auto) 0.4 Lymph # (Auto) 2.8 [place] # (Auto) 1.4 H Eos # (Auto) 0.4 Baso # (Auto) 0.1 Abs Immat Gran (auto) 0.12 H Absolute Neuts (auto) 8.7 H Absolute Nucleated RBC 0.000 Nucleated RBC % (auto) 0.0 Smear Tech's Comments VERIFIED Anion Gap 14 Estim Creat Clear Calc 101.3 Estimated GFR > 60 Fasting Glucose 102 H Calcium 8.0 L Total Bilirubin 0.5 AST 23 D ALT 17 Alkaline Phosphatase 73 Total Protein 4.7 L Albumin 2.5 L Microbiology Microbiology Results: Microbiology 06/23/22 Unknown Gram Stain - Final Peritoneal Fluid Routine Culture - Final Escherichia coli Anaerobic Culture - Final Parabacteroides distasonis 06/23/22 04:16 Blood Culture - Final Blood - Venous No growth after 5 days. 06/23/22 04:16 Blood Culture - Final Blood - Venous No growth after 5 days. Blood Culture - Final No growth after 5 days. Procedures Date of Service Date of Service: 06/28/22 Progress Note: A&P Assessment and plan (1) Perforated appendix: Status: Acute (2) Diffuse peritonitis: Status: Acute Plan Patient still has a persistent leukocytosis. Will continue IV antibiotics. In communication with Dr. Potts of ID, I have added Flagyl to cover beta-lactamase pos Parabacteroides Identified in the intraoperative culture and of placed a consultation for her guidance. If leukocytosis persists, reassess For undrained collections with CT of the abdomen and pelvis Which would require oral and IV contrast to discern abscess. Time Spent With Patient Time: Total time spent is greater than 50% in coordination of care (as documented) at patient's floor/unit and/or counseling patient: Quality Stroke Does the patient have a stroke diagnosis?: No VTE Prior VTE?: No VTE Risk Level:: Surgical - high VTE Device Contraindication: N/A - Device Ordered VTE Drug Contraindication: N/A - Med Ordered
[2022-06-28 11:22] VITALS: BP 135/66; PULSE 67; RESP 18; TEMP 36.4; O2SAT 95
[2022-06-28] MEDS: metroNIDAZOLE/NS 500 MG/100 ML PIGGYBACK 100 MG IV ×2 (13:26→20:16)
--- NOTE | 2022-06-28 14:24 | MHC.CM.PN ---
EMR Review, patient is not yet medically cleared for discharge today R/T continued IV antibiotics for persistant leukocystosis. D/C plan Home self-care vs Home with New VNA. CM will continue to follow for discharge needs.
--- NOTE | 2022-06-28 14:32 | HO.PM.IMPN ---
Subjective Subjective Date of Service: 06/28/22 Interval History: Patient feeling significantly better tolerating diet denies nausea, no vomiting, no pain, no other acute events overnight, denies fever, no chills. Review of Systems Review of Systems: Yes all other systems are reviewed and are negative Physical Exam Vital Signs: Vital Signs: Last Vital Signs Temp 97.6 F 06/28/22 11:22 Pulse 67 06/28/22 11:22 Resp 18 06/28/22 11:22 BP 135/66 06/28/22 11:22 Pulse Ox 95 06/28/22 11:22 O2 Del Method 06/28/22 11:22 O2 Flow Rate 2 06/25/22 00:00 BMI result Body Mass Index 22.4 Const: Other: General patient awake alert x3, in no acute distress. Neck no JVD. CVS regular rate rhythm, Respiratory lungs clear to auscultation, no respiratory distress, no wheeze, no rhonchi. Gastrointestinal abdomen soft, nontender, bowel sounds audible,no guarding , no rigidity, incision side nontender, KEREN drain with serosanguineous drainage. Extremities no edema. Neuro nonfocal patient moving all 4 extremity speech clear. Skin no rash Psych appropriate affect Objective Data Active Medications Acetaminophen (Acetaminophen 325 Mg Tablet) 650 mg PO Q6H PRN PRN Reason: Pain, Mild (Pain Scale 1-3) Last Admin: 06/25/22 16:21 Dose: 650 mg Documented By: CHENCHO Aspirin (Aspirin 81 Mg Tab.Chew) 81 mg PO DAILY [facility] Last Admin: 06/28/22 07:59 Dose: Not Given Documented By: ALBIN Non-Admin Reason: Duplicate Order Aspirin (Aspirin Enteric Coated 81 Mg Tablet.) 81 mg PO DAILY [facility] Last Admin: 06/28/22 07:32 Dose: 81 mg Documented By: ALBIN Atorvastatin Calcium (Atorvastatin Calcium 40 Mg Tablet) 40 mg PO DAILY [facility] Last Admin: 06/28/22 07:31 Dose: 40 mg Documented By: ALBIN Carvedilol (Carvedilol 6.25 Mg Tablet) 6.25 mg PO BID [facility]; Protocol Last Admin: 06/28/22 07:32 Dose: 6.25 mg Documented By: ALBIN Clopidogrel Bisulfate (Clopidogrel Bisulfate 75 Mg Tablet) 75 mg PO DAILY [facility] Last Admin: 06/28/22 07:32 Dose: 75 mg Documented By: ALBIN Docusate Sodium (Docusate Sodium 100 Mg Capsule) 200 mg PO BID [facility] Last Admin: 06/28/22 07:32 Dose: 200 mg Documented By: ALBIN Famotidine (Famotidine 20 Mg Tablet) 20 mg PO BID [facility] Last Admin: 06/28/22 07:32 Dose: 20 mg Documented By: ALBIN Hydromorphone HCl (Hydromorphone Hcl 0.5 Mg/0.5 Ml Syringe) 0.5 mg IVPUSH Q2H PRN; Protocol PRN Reason: Pain, Severe (Pain Scale 7-10) Last Admin: 06/27/22 20:21 Dose: 0.5 mg Documented By: WASHINGTON Piperacillin Sod/Tazobactam (Sod 3.375 gm/ Sodium Chloride) 50 mls @ 100 mls/hr IV Q6H [facility] Last Infusion: 06/28/22 13:24 Dose: 100 mls/hr Documented By: ALBIN Metronidazole (Flagyl) 500 mg in 100 mls @ 100 mls/hr IV Q8H [facility] Last Admin: 06/28/22 13:26 Dose: 100 mls/hr Documented By: ALBIN Multivitamins/Vitamin C (Multivitamin Tablet) 1 tab PO DAILY [facility] Last Admin: 06/28/22 07:33 Dose: 1 tab Documented By: ALBIN Nicotine (Nicotine 21 Mg Patch.Td24) 21 mg TRANSDERMA DAILY [facility] Last Admin: 06/28/22 07:31 Dose: 21 mg Documented By: ALBIN Ondansetron HCl (Ondansetron Hcl 4 Mg/2 Ml Vial) 4 mg IVPUSH Q6H PRN PRN Reason: Nausea and Vomiting Ondansetron HCl (Ondansetron Hcl 4 Mg/2 Ml Vial) 4 mg IVPUSH ONCE PRN PRN Reason: Nausea and Vomiting Oxycodone HCl (Oxycodone Hcl Immed Release 5 Mg Tablet) 5 mg PO Q4H PRN PRN Reason: Pain, Moderate (Pain Scale 4-6 Last Admin: 06/28/22 07:33 Dose: 5 mg Documented By: ALBIN Sacubitril/Valsartan (Sacubitril/Valsartan 1 Tab Tablet) 1 tab PO BID [facility]; Protocol Last Admin: 06/28/22 07:31 Dose: 1 tab Documented By: ALBIN Labs CBC & Chem 7: 06/28/22 05:08 06/28/22 05:08 Labs: Laboratory Results - last 24 hr 06/28/22 06/28/22 05:08 05:08 MCV 87.7 MCH 30.0 MCHC 34.1 RDW 15.2 Plt Count 213 MPV 10.5 Immature Gran % (Auto) 0.9 H Neut % (Auto) 64.4 Lymph % (Auto) 20.6 [place] % (Auto) 10.4 Eos % (Auto) 3.3 Baso % (Auto) 0.4 Lymph # (Auto) 2.8 [place] # (Auto) 1.4 H Eos # (Auto) 0.4 Baso # (Auto) 0.1 Abs Immat Gran (auto) 0.12 H Absolute Neuts (auto) 8.7 H Absolute Nucleated RBC 0.000 Nucleated RBC % (auto) 0.0 Smear Tech's Comments VERIFIED Anion Gap 14 Estim Creat Clear Calc 101.3 Estimated GFR > 60 Fasting Glucose 102 H Calcium 8.0 L Total Bilirubin 0.5 AST 23 D ALT 17 Alkaline Phosphatase 73 Total Protein 4.7 L Albumin 2.5 L Microbiology Microbiology Results: Microbiology 06/23/22 Unknown Gram Stain - Final Peritoneal Fluid Routine Culture - Final Escherichia coli Anaerobic Culture - Final Parabacteroides distasonis 06/23/22 04:16 Blood Culture - Final Blood - Venous No growth after 5 days. 06/23/22 04:16 Blood Culture - Final Blood - Venous No growth after 5 days. Blood Culture - Final No growth after 5 days. Assessment and Plan (1) CAD (coronary artery disease): Status: Acute (2) Appendicitis: Status: Acute Plan 57yo M admitted to surgery service for perforated acute appendicitis, underwent emergent appendectomy. PMHx notable for anterior [place] [facility] [place] A BARBRA was placed for a 100% LAD occlusion. He was started on DAPT [ASA + clopidogrel]. Echo showed ischemic cardiomyopathy with reduced LVEF of 20-30%. Medicine consult requested for management of comorbid conditions 1. CAD/ ischemic cm/ chronic HFr EF - no symptoms of chest pain, continue home medication Plavix/ASA, carvedilol + Entresto, follow clinical course 2.Peritonitis Status post appendectomy, persistent high volume serosanguineous drainage from KEREN drain -clinically looking better tolerating diet no nausea, no vomiting, no worsening abdominal pain , no fevers on IV Zosyn day 6, noted to have persistent leukocytosis, Flagyl added today, follow ID recommendation follow CBC and clinical course 3.tobacco abuse - NRT, counseling done SCDs, LMWH when deemed safe by surgeon Quality Stroke Does the patient have a stroke diagnosis?: No VTE Prior VTE?: No VTE Risk Level:: Surgical - high VTE Device Contraindication: N/A - Device Ordered VTE Drug Contraindication: N/A - Med Ordered
[2022-06-28 15:22] VITALS: BP 118/65; PULSE 99; RESP 17; TEMP 36.4; O2SAT 95
[2022-06-28 19:07] VITALS: BP 132/66; PULSE 80; RESP 17; TEMP 36.9; O2SAT 95
[2022-06-28] MEDS: Acetaminophen 325 MG TABLET 650 MG PO (20:20)
[2022-06-28 23:28] VITALS: BP 139/68; PULSE 82; RESP 18; TEMP 36.4; O2SAT 96
[2022-06-29] MEDS: Piperacillin Sodium/Tazobactam 3.375 GM in 0.9 % Sodium Chloride 50 ML IV ×4 (01:11→17:53)
[2022-06-29 03:41] VITALS: BP 122/66; PULSE 71; RESP 18; TEMP 36.1; O2SAT 96
[2022-06-29] MEDS: metroNIDAZOLE/NS 500 MG/100 ML PIGGYBACK 100 MG IV ×3 (04:58→20:13)
[2022-06-29] MEDS: oxyCODONE HCl Immed Release 5 MG TABLET PO ×3 (05:03→17:53)
[2022-06-29 07:35] VITALS: BP 112/57; PULSE 75; RESP 18; TEMP 36.8; O2SAT 93
[2022-06-29] MEDS: Clopidogrel Bisulfate 75 MG TABLET PO (08:04)
[2022-06-29] MEDS: Atorvastatin Calcium 40 MG TABLET PO (08:04)
[2022-06-29] MEDS: Sacubitril/Valsartan 24/26 1 TAB TABLET PO ×2 (08:04→20:07)
[2022-06-29] MEDS: Docusate Sodium 100 MG CAPSULE 200 MG PO ×2 (08:04→20:08)
[2022-06-29] MEDS: Famotidine 20 MG TABLET PO ×2 (08:04→20:13)
[2022-06-29] MEDS: Aspirin 81 MG TAB.CHEW PO (08:04)
[2022-06-29] MEDS: Multivitamin TABLET 1 TAB PO (08:04)
[2022-06-29] MEDS: Aspirin Enteric Coated 81 MG TABLET.DR PO (08:04)
[2022-06-29] MEDS: carvediloL 6.25 MG TABLET PO ×2 (08:05→20:13)
[2022-06-29] MEDS: Nicotine 21 MG PATCH.TD24 TRANSDERMA (08:05)
[2022-06-29 08:15] LABS: Hemoglobin 14.1 g/dl (14.0-18.0); Mean Corpuscular HGB Conc 34.4 g/dl (31.0-36.0); Mean Corpuscular Hemoglobin 29.9 pg (27.0-33.0); Mean Corpuscular Volume 86.9 fL (80.0-98.0); Mean Platelet Volume 10.2 fL (9.4-12.4); Platelet Count 246 X10*3/uL (160-400); Red Blood Count 4.72 X10*6/uL (4.60-5.80); Red Cell Distribution Width 15.5 % (11.0-16.0); White Blood Count 13.4 X10*3/uL (4.8-10.8)
--- NOTE | 2022-06-29 09:21 | P.PNGS_ITS ---
Subjective Subjective Date of Service: 06/29/22 Interval history: Patient denies significant abdominal pain at this time. He reports difficulty with blood draw this morning. Denies nausea or vomiting. Physical Exam Vital Signs: Vital Signs: Last Vital Signs Temp 98.3 F 06/29/22 07:35 Pulse 75 06/29/22 07:35 Resp 18 06/29/22 07:35 BP 112/57 L 06/29/22 07:35 Pulse Ox 93 06/29/22 07:35 O2 Del Method 06/29/22 07:35 O2 Flow Rate 2 06/25/22 00:00 BMI result Body Mass Index 22.4 Const: General: comfortable, no acute distress and anxious Nutritional Appearance: thin Orientation/consciousness: patient oriented x3 Resp: Effort & Inspection: normal respiratory effort, no audible wheezes, no cough and no respiratory distress GI: Other: Abdominal incision is clean, dry, and intact. KEREN draining serous fluid. Abd omen is soft and nondistended. Skin: Other: Warm, dry, no rashes Neuro: General: patient oriented x3 Extrem: Other: No pedal edema, no calf tenderness Objective Data Active Medications Acetaminophen (Acetaminophen 325 Mg Tablet) 650 mg PO Q6H PRN PRN Reason: Pain, Mild (Pain Scale 1-3) Last Admin: 06/28/22 20:20 Dose: 650 mg Documented By: CAMRON Aspirin (Aspirin 81 Mg Tab.Chew) 81 mg PO DAILY [facility] Last Admin: 06/29/22 08:04 Dose: 81 mg Documented By: GALINA Aspirin (Aspirin Enteric Coated 81 Mg Tablet.) 81 mg PO DAILY [facility] Last Admin: 06/29/22 08:04 Dose: 81 mg Documented By: GALINA Atorvastatin Calcium (Atorvastatin Calcium 40 Mg Tablet) 40 mg PO DAILY [facility] Last Admin: 06/29/22 08:04 Dose: 40 mg Documented By: GALINA Carvedilol (Carvedilol 6.25 Mg Tablet) 6.25 mg PO BID [facility]; Protocol Last Admin: 06/29/22 08:05 Dose: 6.25 mg Documented By: GALINA Comments: BP-112/57 Clopidogrel Bisulfate (Clopidogrel Bisulfate 75 Mg Tablet) 75 mg PO DAILY [facility] Last Admin: 06/29/22 08:04 Dose: 75 mg Documented By: GALINA Docusate Sodium (Docusate Sodium 100 Mg Capsule) 200 mg PO BID [facility] Last Admin: 06/29/22 08:04 Dose: 200 mg Documented By: GALINA Famotidine (Famotidine 20 Mg Tablet) 20 mg PO BID [facility] Last Admin: 06/29/22 08:04 Dose: 20 mg Documented By: GALINA Hydromorphone HCl (Hydromorphone Hcl 0.5 Mg/0.5 Ml Syringe) 0.5 mg IVPUSH Q2H PRN; Protocol PRN Reason: Pain, Severe (Pain Scale 7-10) Last Admin: 06/27/22 20:21 Dose: 0.5 mg Documented By: WASHINGTON Piperacillin Sod/Tazobactam (Sod 3.375 gm/ Sodium Chloride) 50 mls @ 100 mls/hr IV Q6H [facility] Last Infusion: 06/29/22 08:12 Dose: 0 mls/hr Documented By: GALINA Metronidazole (Flagyl) 500 mg in 100 mls @ 100 mls/hr IV Q8H [facility] Last Infusion: 06/29/22 05:58 Dose: 0 mls/hr Documented By: OSMANY Multivitamins/Vitamin C (Multivitamin Tablet) 1 tab PO DAILY [facility] Last Admin: 06/29/22 08:04 Dose: 1 tab Documented By: GALINA Nicotine (Nicotine 21 Mg Patch.Td24) 21 mg TRANSDERMA DAILY [facility] Last Admin: 06/29/22 08:05 Dose: 21 mg Documented By: GALINA Ondansetron HCl (Ondansetron Hcl 4 Mg/2 Ml Vial) 4 mg IVPUSH Q6H PRN PRN Reason: Nausea and Vomiting Ondansetron HCl (Ondansetron Hcl 4 Mg/2 Ml Vial) 4 mg IVPUSH ONCE PRN PRN Reason: Nausea and Vomiting Oxycodone HCl (Oxycodone Hcl Immed Release 5 Mg Tablet) 5 mg PO Q4H PRN PRN Reason: Pain, Moderate (Pain Scale 4-6 Last Admin: 06/29/22 05:03 Dose: 5 mg Documented By: OSMANY Sacubitril/Valsartan (Sacubitril/Valsartan 1 Tab Tablet) 1 tab PO BID [facility]; Protocol Last Admin: 06/29/22 08:04 Dose: 1 tab Documented By: GALINA Labs CBC & Chem 7: 06/29/22 07:57 06/28/22 05:08 Labs: Laboratory Results - last 24 hr 06/29/22 07:57 MCV 86.9 MCH 29.9 MCHC 34.4 RDW 15.5 Plt Count 246 MPV 10.2 Absolute Nucleated RBC 0.000 Nucleated RBC % (auto) 0.0 Microbiology Microbiology Results: Microbiology 06/23/22 Unknown Gram Stain - Final Peritoneal Fluid Routine Culture - Final Escherichia coli Anaerobic Culture - Final Parabacteroides distasonis 06/23/22 04:16 Blood Culture - Final Blood - Venous No growth after 5 days. 06/23/22 04:16 Blood Culture - Final Blood - Venous No growth after 5 days. Blood Culture - Final No growth after 5 days. Procedures Date of Service Date of Service: 06/29/22 Progress Note: A&P Assessment and plan (1) Perforated appendix: Status: Acute (2) Diffuse peritonitis: Status: Acute Plan Patient is reasonably comfortable this morning has a persistent leukocytosis. He continues on Zosyn and Flagyl. Abdominal wounds are clean and intact and KEREN continues to produce serous fluid. Continue to monitor WBC, possible CT abdomen and pelvis on Friday if no improvement. Time Spent With Patient Time: Total time spent is greater than 50% in coordination of care (as documented) at patient's floor/unit and/or counseling patient: Quality Stroke Does the patient have a stroke diagnosis?: No VTE Prior VTE?: No VTE Risk Level:: Surgical - high VTE Device Contraindication: N/A - Device Ordered VTE Drug Contraindication: N/A - Med Ordered
[2022-06-29 11:00] VITALS: BP 101/75; PULSE 71; RESP 18; TEMP 36.4; O2SAT 97
--- NOTE | 2022-06-29 11:10 | P.PNIM_ITS ---
Subjective Subjective Date of Service: 06/29/22 Interval History: Patient upset about pain at right antecubital fossa after blood draw, otherwise denies nausea vomiting, no abdominal pain, had a regular bowel movement, no overnight fever chills. Review of Systems [employer] no headache no dizziness CVS no chest pain, no palpitation Respiratory no cough, no shortness of breath. Review of Systems: Yes all other systems are reviewed and are negative Physical Exam Vital Signs: Vital Signs: Last Vital Signs Temp 97.5 F 06/29/22 11:00 Pulse 71 06/29/22 11:00 Resp 18 06/29/22 11:00 BP 101/75 06/29/22 11:00 Pulse Ox 97 06/29/22 11:00 O2 Del Method 06/29/22 11:00 O2 Flow Rate 2 06/25/22 00:00 BMI result Body Mass Index 22.4 Const: Other: General patient aw zainab alert x3, in n o acute distress.? Neck no JVD. CVS? regular rate rhyt hm, Respiratory cornel ngs clear to auscu ltation, no respir atory distress, no wheeze, no rhonch i. Gastrointestina l abdomen soft, no ntender, bowel kirti nds audible,no gua rding , no rigidit y, incision site d ry and clean, KEREN d rain with serosang uineous drainage. Extremities no justyna ma. Neuro nonfocal patient moving al l 4 extremity spee ch clear. Skin no rash Psych appropr iate affect Objective Data Active Medications Acetaminophen (Acetaminophen 325 Mg Tablet) 650 mg PO Q6H PRN PRN Reason: Pain, Mild (Pain Scale 1-3) Last Admin: 06/28/22 20:20 Dose: 650 mg Documented By: CAMRON Aspirin (Aspirin 81 Mg Tab.Chew) 81 mg PO DAILY [facility] Last Admin: 06/29/22 08:04 Dose: 81 mg Documented By: GALINA Aspirin (Aspirin Enteric Coated 81 Mg Tablet.) 81 mg PO DAILY [facility] Last Admin: 06/29/22 08:04 Dose: 81 mg Documented By: GALINA Atorvastatin Calcium (Atorvastatin Calcium 40 Mg Tablet) 40 mg PO DAILY [facility] Last Admin: 06/29/22 08:04 Dose: 40 mg Documented By: GALINA Carvedilol (Carvedilol 6.25 Mg Tablet) 6.25 mg PO BID [facility]; Protocol Last Admin: 06/29/22 08:05 Dose: 6.25 mg Documented By: GALINA Comments: BP-112/57 Clopidogrel Bisulfate (Clopidogrel Bisulfate 75 Mg Tablet) 75 mg PO DAILY [facility] Last Admin: 06/29/22 08:04 Dose: 75 mg Documented By: GALINA Docusate Sodium (Docusate Sodium 100 Mg Capsule) 200 mg PO BID [facility] Last Admin: 06/29/22 08:04 Dose: 200 mg Documented By: GALINA Famotidine (Famotidine 20 Mg Tablet) 20 mg PO BID [facility] Last Admin: 06/29/22 08:04 Dose: 20 mg Documented By: GALINA Hydromorphone HCl (Hydromorphone Hcl 0.5 Mg/0.5 Ml Syringe) 0.5 mg IVPUSH Q2H PRN; Protocol PRN Reason: Pain, Severe (Pain Scale 7-10) Last Admin: 06/27/22 20:21 Dose: 0.5 mg Documented By: WASHINGTON Piperacillin Sod/Tazobactam (Sod 3.375 gm/ Sodium Chloride) 50 mls @ 100 mls/hr IV Q6H [facility] Last Infusion: 06/29/22 08:12 Dose: 0 mls/hr Documented By: GALINA Metronidazole (Flagyl) 500 mg in 100 mls @ 100 mls/hr IV Q8H [facility] Last Infusion: 06/29/22 05:58 Dose: 0 mls/hr Documented By: OSMANY Multivitamins/Vitamin C (Multivitamin Tablet) 1 tab PO DAILY [facility] Last Admin: 06/29/22 08:04 Dose: 1 tab Documented By: GALINA Nicotine (Nicotine 21 Mg Patch.Td24) 21 mg TRANSDERMA DAILY [facility] Last Admin: 06/29/22 08:05 Dose: 21 mg Documented By: GALINA Ondansetron HCl (Ondansetron Hcl 4 Mg/2 Ml Vial) 4 mg IVPUSH Q6H PRN PRN Reason: Nausea and Vomiting Ondansetron HCl (Ondansetron Hcl 4 Mg/2 Ml Vial) 4 mg IVPUSH ONCE PRN PRN Reason: Nausea and Vomiting Oxycodone HCl (Oxycodone Hcl Immed Release 5 Mg Tablet) 5 mg PO Q4H PRN PRN Reason: Pain, Moderate (Pain Scale 4-6 Last Admin: 06/29/22 05:03 Dose: 5 mg Documented By: OSMANY Sacubitril/Valsartan (Sacubitril/Valsartan 1 Tab Tablet) 1 tab PO BID [facility]; Protocol Last Admin: 06/29/22 08:04 Dose: 1 tab Documented By: GALINA Labs CBC & Chem 7: 06/29/22 07:57 06/28/22 05:08 Labs: Laboratory Results - last 24 hr 06/29/22 07:57 MCV 86.9 MCH 29.9 MCHC 34.4 RDW 15.5 Plt Count 246 MPV 10.2 Absolute Nucleated RBC 0.000 Nucleated RBC % (auto) 0.0 Microbiology Microbiology Results: Microbiology 06/23/22 Unknown Gram Stain - Final Peritoneal Fluid Routine Culture - Final Escherichia coli Anaerobic Culture - Final Parabacteroides distasonis Assessment and Plan (1) CAD (coronary artery disease): Status: Acute (2) Appendicitis: Status: Acute Plan 57yo M admitted to surgery service for perforated acute appendicitis, underwent emergent appendectomy. PMHx notable for anterior [place] [facility] [place] A BARBRA was placed for a 100% LAD occlusion. He was started on DAPT [ASA + clopidogrel]. Echo showed ischemic cardiomyopathy with reduced LVEF of 20-30%. Medicine consult requested for management of comorbid conditions 1. CAD/ischemic cardiomyopathy/ chronic HFr EF - no symptoms of chest pain, continue home medication Plavix/ASA, carvedilol + Entresto, follow clinical course, DC IV fluids, stable electrolytes. 2.Peritonitis Status post appendectomy, persistent high volume serosanguineous drainage from KEREN drain -clinically looking better tolerating diet no nausea, no vomiting, no worsening abdominal pain , no fevers on IV Zosyn day 7, and iv Flagyl day 2, persistent leukocytosis CT abdomen and pelvis plan for Friday as per General surgery Follow CBC, Await ID input 3.tobacco abuse - NRT, counseling done DVT prophylaxis with SCDs, LMWH when deemed safe by surgeon Disposition patient needs inpatient hospitalization due to persistent leukocytosis requiring iv antibiotics and needs imaging studies. Quality Stroke Does the patient have a stroke diagnosis?: No VTE Prior VTE?: No VTE Risk Level:: Surgical - high VTE Device Contraindication: N/A - Device Ordered VTE Drug Contraindication: N/A - Med Ordered
[2022-06-29 15:08] VITALS: BP 126/67; PULSE 62; RESP 16; TEMP 36.1; O2SAT 97
[2022-06-29 19:08] VITALS: BP 131/70; PULSE 70; RESP 18; TEMP 36.5; O2SAT 97
[2022-06-30] VITALS (7 sets, daily range): BP systolic 117–137; BP diastolic 57–70; PULSE 65–76; RESP 17–18; TEMP 36.1–36.8; O2SAT 96–98
[2022-06-30] MEDS: Piperacillin Sodium/Tazobactam 3.375 GM in 0.9 % Sodium Chloride 50 ML IV ×5 (00:22→23:21)
[2022-06-30] MEDS: metroNIDAZOLE/NS 500 MG/100 ML PIGGYBACK 100 MG IV ×3 (06:12→21:09)
[2022-06-30 06:45] LABS: Hematocrit 45.9 % (42.0-52.0); Mean Corpuscular HGB Conc 32.7 g/dl (31.0-36.0); Mean Corpuscular Hemoglobin 29.6 pg (27.0-33.0); Mean Corpuscular Volume 90.5 fL (80.0-98.0); Mean Platelet Volume 10.6 fL (9.4-12.4); Platelet Count 294 X10*3/uL (160-400); Red Blood Count 5.07 X10*6/uL (4.60-5.80); Red Cell Distribution Width 15.8 % (11.0-16.0); White Blood Count 12.8 X10*3/uL (4.8-10.8)
[2022-06-30] MEDS: Clopidogrel Bisulfate 75 MG TABLET PO (08:04)
[2022-06-30] MEDS: Sacubitril/Valsartan 24/26 1 TAB TABLET PO ×2 (08:04→21:09)
[2022-06-30] MEDS: Aspirin Enteric Coated 81 MG TABLET.DR PO (08:04)
[2022-06-30] MEDS: Multivitamin TABLET 1 TAB PO (08:04)
[2022-06-30] MEDS: Atorvastatin Calcium 40 MG TABLET PO (08:04)
[2022-06-30] MEDS: carvediloL 6.25 MG TABLET PO ×2 (08:04→21:10)
[2022-06-30] MEDS: Docusate Sodium 100 MG CAPSULE 200 MG PO ×2 (08:04→21:10)
[2022-06-30] MEDS: Famotidine 20 MG TABLET PO ×2 (08:04→21:10)
--- NOTE | 2022-06-30 08:38 | PM.PNGS ---
Subjective Subjective Date of Service: 06/30/22 Interval history: Patient feels much improved this morning with no abdominal pain. The right arm pain is improved as well. He is tolerating his diet without nausea or vomiting. Physical Exam Vital Signs: Vital Signs: Last Vital Signs Temp 97 F 06/30/22 07:51 Pulse 69 06/30/22 07:51 Resp 18 06/30/22 07:51 BP 137/66 06/30/22 07:51 Pulse Ox 96 06/30/22 07:51 O2 Del Method 06/30/22 07:51 O2 Flow Rate 2 06/25/22 00:00 BMI result Body Mass Index 22.4 Const: General: comfortable and no acute distress Nutritional Appearance: well nourished Orientation/consciousness: patient oriented x3 Limitations: no limitations Resp: Other: Breathing comfortably on room air, no respiratory distress GI: Other: Soft, nondistended, nontender, KEREN intact with serous fluid. No bleeding or discharge from the incisions. Skin: Other: Warm, dry, no rash, normal color. Neuro: General: patient oriented x3 Extrem: Other: No peripheral edema Objective Data Active Medications Acetaminophen (Acetaminophen 325 Mg Tablet) 650 mg PO Q6H PRN PRN Reason: Pain, Mild (Pain Scale 1-3) Last Admin: 06/28/22 20:20 Dose: 650 mg Documented By: CAMRON Aspirin (Aspirin 81 Mg Tab.Chew) 81 mg PO DAILY [facility] Last Admin: 06/30/22 08:05 Dose: Not Given Documented By: REGINE Non-Admin Reason: Duplicate Order Aspirin (Aspirin Enteric Coated 81 Mg Tablet.) 81 mg PO DAILY [facility] Last Admin: 06/30/22 08:04 Dose: 81 mg Documented By: REGINE Atorvastatin Calcium (Atorvastatin Calcium 40 Mg Tablet) 40 mg PO DAILY [facility] Last Admin: 06/30/22 08:04 Dose: 40 mg Documented By: REGINE Carvedilol (Carvedilol 6.25 Mg Tablet) 6.25 mg PO BID [facility]; Protocol Last Admin: 06/30/22 08:04 Dose: 6.25 mg Documented By: REGINE Clopidogrel Bisulfate (Clopidogrel Bisulfate 75 Mg Tablet) 75 mg PO DAILY [facility] Last Admin: 06/30/22 08:04 Dose: 75 mg Documented By: REGINE Docusate Sodium (Docusate Sodium 100 Mg Capsule) 200 mg PO BID [facility] Last Admin: 06/30/22 08:04 Dose: 200 mg Documented By: REGINE Famotidine (Famotidine 20 Mg Tablet) 20 mg PO BID [facility] Last Admin: 06/30/22 08:04 Dose: 20 mg Documented By: REGINE Hydromorphone HCl (Hydromorphone Hcl 0.5 Mg/0.5 Ml Syringe) 0.5 mg IVPUSH Q2H PRN; Protocol PRN Reason: Pain, Severe (Pain Scale 7-10) Last Admin: 06/27/22 20:21 Dose: 0.5 mg Documented By: WASHINGTON Piperacillin Sod/Tazobactam (Sod 3.375 gm/ Sodium Chloride) 50 mls @ 100 mls/hr IV Q6H [facility] Last Infusion: 06/30/22 06:13 Dose: 0 mls/hr Documented By: ANTOIC Metronidazole (Flagyl) 500 mg in 100 mls @ 100 mls/hr IV Q8H [facility] Last Infusion: 06/30/22 08:06 Dose: 0 mls/hr Documented By: REGINE Multivitamins/Vitamin C (Multivitamin Tablet) 1 tab PO DAILY [facility] Last Admin: 06/30/22 08:04 Dose: 1 tab Documented By: REGINE Nicotine (Nicotine 21 Mg Patch.Td24) 21 mg TRANSDERMA DAILY [facility] Last Admin: 06/29/22 08:05 Dose: 21 mg Documented By: GALINA Ondansetron HCl (Ondansetron Hcl 4 Mg/2 Ml Vial) 4 mg IVPUSH Q6H PRN PRN Reason: Nausea and Vomiting Ondansetron HCl (Ondansetron Hcl 4 Mg/2 Ml Vial) 4 mg IVPUSH ONCE PRN PRN Reason: Nausea and Vomiting Oxycodone HCl (Oxycodone Hcl Immed Release 5 Mg Tablet) 5 mg PO Q4H PRN PRN Reason: Pain, Moderate (Pain Scale 4-6 Last Admin: 06/29/22 17:53 Dose: 5 mg Documented By: GALINA Sacubitril/Valsartan (Sacubitril/Valsartan 24 1 Tab Tablet) 1 tab PO BID [facility]; Protocol Last Admin: 06/30/22 08:04 Dose: 1 tab Documented By: REGINE Labs CBC & Chem 7: 06/30/22 05:46 06/28/22 05:08 Labs: Laboratory Results - last 24 hr 06/30/22 05:46 MCV 90.5 MCH 29.6 MCHC 32.7 RDW 15.8 Plt Count 294 MPV 10.6 Absolute Nucleated RBC 0.000 Nucleated RBC % (auto) 0.0 Procedures Date of Service Date of Service: 06/30/22 Progress Note: A&P Assessment and plan (1) Diffuse peritonitis: Status: Acute (2) Perforated appendix: Status: Acute Plan Patient is comfortable this morning without abdominal pain, nausea, or vomiting. Laboratories revealed decreased WBC although still mildly elevated. His abdominal wounds are clean and intact. He continues on Zosyn and Flagyl per ID recommendations. Possible CT abdomen and pelvis tomorrow. Will recheck CBC in a.m.. Time Spent With Patient Time: Total time spent is greater than 50% in coordination of care (as documented) at patient's floor/unit and/or counseling patient: Quality Stroke Does the patient have a stroke diagnosis?: No VTE Prior VTE?: No VTE Risk Level:: Surgical - high VTE Device Contraindication: N/A - Device Ordered VTE Drug Contraindication: N/A - Med Ordered
[2022-06-30] MEDS: Nicotine 21 MG PATCH.TD24 TRANSDERMA (09:51)
--- NOTE | 2022-06-30 10:25 | P.PNIM_ITS ---
Subjective Subjective Date of Service: 06/30/22 Interval History: Offers no acute complaints, tolerating diet no nausea no vomiting no fevers no chills no abdominal pain, no acute issues overnight. Review of Systems [employer] no headache no dizziness CVS no chest pain, no palpitation Respiratory no cough, no shortness of breath Review of Systems: Yes all other systems are reviewed and are negative Physical Exam Vital Signs: Vital Signs: Last Vital Signs Temp 97 F 06/30/22 07:51 Pulse 69 06/30/22 07:51 Resp 18 06/30/22 07:51 BP 137/66 06/30/22 07:51 Pulse Ox 96 06/30/22 07:51 O2 Del Method 06/30/22 07:51 O2 Flow Rate 2 06/25/22 00:00 BMI result Body Mass Index 22.4 Const: Other: General patient awake alert x3, in no acute distress.? Neck no JVD. CVS? regular rate rhythm, Respiratory lungs clear to auscultation, no respiratory distress, no wheeze, no rhonchi. Gastrointestinal abdomen soft, nontender, bowel sounds audible,no guarding , no rigidity, incision clean and dry, KEREN drain with serosanguineous drainage. Extremities no edema. Neuro nonfocal Skin no rash Psych appropriate affect Objective Data Active Medications Acetaminophen (Acetaminophen 325 Mg Tablet) 650 mg PO Q6H PRN PRN Reason: Pain, Mild (Pain Scale 1-3) Last Admin: 06/28/22 20:20 Dose: 650 mg Documented By: CAMRON Aspirin (Aspirin 81 Mg Tab.Chew) 81 mg PO DAILY [facility] Last Admin: 06/30/22 08:05 Dose: Not Given Documented By: REGINE Non-Admin Reason: Duplicate Order Aspirin (Aspirin Enteric Coated 81 Mg Tablet.) 81 mg PO DAILY [facility] Last Admin: 06/30/22 08:04 Dose: 81 mg Documented By: REGINE Atorvastatin Calcium (Atorvastatin Calcium 40 Mg Tablet) 40 mg PO DAILY [facility] Last Admin: 06/30/22 08:04 Dose: 40 mg Documented By: REGINE Carvedilol (Carvedilol 6.25 Mg Tablet) 6.25 mg PO BID [facility]; Protocol Last Admin: 06/30/22 08:04 Dose: 6.25 mg Documented By: REGINE Clopidogrel Bisulfate (Clopidogrel Bisulfate 75 Mg Tablet) 75 mg PO DAILY [facility] Last Admin: 06/30/22 08:04 Dose: 75 mg Documented By: REGINE Docusate Sodium (Docusate Sodium 100 Mg Capsule) 200 mg PO BID [facility] Last Admin: 06/30/22 08:04 Dose: 200 mg Documented By: REGINE Famotidine (Famotidine 20 Mg Tablet) 20 mg PO BID [facility] Last Admin: 06/30/22 08:04 Dose: 20 mg Documented By: REGINE Hydromorphone HCl (Hydromorphone Hcl 0.5 Mg/0.5 Ml Syringe) 0.5 mg IVPUSH Q2H PRN; Protocol PRN Reason: Pain, Severe (Pain Scale 7-10) Last Admin: 06/27/22 20:21 Dose: 0.5 mg Documented By: WASHINGTON Piperacillin Sod/Tazobactam (Sod 3.375 gm/ Sodium Chloride) 50 mls @ 100 mls/hr IV Q6H [facility] Last Infusion: 06/30/22 06:13 Dose: 0 mls/hr Documented By: ANTOIC Metronidazole (Flagyl) 500 mg in 100 mls @ 100 mls/hr IV Q8H [facility] Last Infusion: 06/30/22 08:06 Dose: 0 mls/hr Documented By: REGINE Multivitamins/Vitamin C (Multivitamin Tablet) 1 tab PO DAILY [facility] Last Admin: 06/30/22 08:04 Dose: 1 tab Documented By: REGINE Nicotine (Nicotine 21 Mg Patch.Td24) 21 mg TRANSDERMA DAILY [facility] Last Admin: 06/30/22 09:51 Dose: 21 mg Documented By: REGINE Ondansetron HCl (Ondansetron Hcl 4 Mg/2 Ml Vial) 4 mg IVPUSH Q6H PRN PRN Reason: Nausea and Vomiting Ondansetron HCl (Ondansetron Hcl 4 Mg/2 Ml Vial) 4 mg IVPUSH ONCE PRN PRN Reason: Nausea and Vomiting Oxycodone HCl (Oxycodone Hcl Immed Release 5 Mg Tablet) 5 mg PO Q4H PRN PRN Reason: Pain, Moderate (Pain Scale 4-6 Last Admin: 06/29/22 17:53 Dose: 5 mg Documented By: GALINA Sacubitril/Valsartan (Sacubitril/Valsartan 1 Tab Tablet) 1 tab PO BID [place]; Protocol Last Admin: 06/30/22 08:04 Dose: 1 tab Documented By: REGINE Labs CBC & Chem 7: 06/30/22 05:46 06/28/22 05:08 Labs: Laboratory Results - last 24 hr 06/30/22 05:46 MCV 90.5 MCH 29.6 MCHC 32.7 RDW 15.8 Plt Count 294 MPV 10.6 Absolute Nucleated RBC 0.000 Nucleated RBC % (auto) 0.0 Assessment and Plan (1) CAD (coronary artery disease): Status: Acute (2) Appendicitis: Status: Acute Plan 57yo M admitted to surgery service for perforated acute appendicitis, underwent emergent appendectomy. PMHx notable for anterior STEMI for which he was at [facility] [place] 04/30-05/02/22. A BARBRA was placed for a 100% LAD occlusion. He was started on DAPT [ASA + clopidogrel]. Echo showed ischemic cardiomyopathy with reduced LVEF of 20-30%. Medicine consult requested for management of comorbid conditions 1. CAD/ischemic cardiomyopathy/ chronic HFr EF - no symptoms of chest pain, continue home medication Plavix/ASA, carvedilol , and Entresto, follow clinical course. 2.Peritonitis Status post appendectomy, persistent serosanguineous drainage from KEREN drain -clinically looking better tolerating diet no nausea, no vomiting, no abdominal pain , no fevers on IV Zosyn day 8, and iv Flagyl day 3, WBC trending down slowly CT abdomen and pelvis plan for Friday as per General surgery Follow CBC, Await ID input 3.tobacco abuse - NRT, counseling done DVT prophylaxis with SCDs, LMWH when deemed safe by surgeon Disposition patient needs inpatient hospitalization due to persistent leukocytosis requiring iv antibiotics and need f/u imaging studies . Quality Stroke Does the patient have a stroke diagnosis?: No VTE Prior VTE?: No VTE Risk Level:: Surgical - high VTE Device Contraindication: N/A - Device Ordered VTE Drug Contraindication: N/A - Med Ordered
[2022-07-01 03:28] VITALS: BP 125/74; PULSE 81; RESP 17; TEMP 36.8; O2SAT 96
[2022-07-01] MEDS: Piperacillin Sodium/Tazobactam 3.375 GM in 0.9 % Sodium Chloride 50 ML IV ×2 (05:37→12:22)
[2022-07-01] MEDS: oxyCODONE HCl Immed Release 5 MG TABLET PO (05:37)
[2022-07-01] MEDS: metroNIDAZOLE/NS 500 MG/100 ML PIGGYBACK 100 MG IV ×2 (06:11→12:54)
--- NOTE | 2022-07-01 07:29 | PM.HPGS ---
History of Present Illness History of Present Illness Date of Service: 07/01/22 Chief complaint: appendicitis Narrative: Jamie Tesfaye is a 57 year old male [facility] Past Medical History Medical History (Updated 06/27/22 @ 13:15 by Win Lopez DO) Cocaine abuse Coronary artery disease HFrEF (heart failure with reduced ejection fraction) Ischemic cardiomyopathy Myocardial infarct Tobacco abuse Family History Family History Father Prostate cancer Surgical History Surgical History (Updated 06/23/22 @ 13:06 by Araceli Elam RN) History of cardiac catheterization Social History Social History Household Members: None Household Members Other:: 1 Housing: Apartment Patient Tobacco Use Status: Current everyday Tobacco user Tobacco use type: Cigarette Cigarette Packs Per Day: 0.5 Cigarettes Per Day: 15 Substance Use Type: Marijuana service: No Current occupational status: employed Meds Allergies Allergy/AdvReac Type Severity Reaction Status Date / Time No Known Allergies Allergy Verified 07/04/21 11:52 none Allergy Unknown Unknown Uncoded 04/03/21 10:26 Active Medications: Current Medications Acetaminophen (Acetaminophen 325 Mg Tablet) 650 mg PO Q6H PRN PRN Reason: Pain, Mild (Pain Scale 1-3) Last Admin: 06/28/22 20:20 Dose: 650 mg Aspirin (Aspirin 81 Mg Tab.Chew) 81 mg PO DAILY [facility] Last Admin: 07/01/22 07:17 Dose: Not Given Aspirin (Aspirin Enteric Coated 81 Mg Tablet.Dr) 81 mg PO DAILY [facility] Last Admin: 06/30/22 08:04 Dose: 81 mg Atorvastatin Calcium (Atorvastatin Calcium 40 Mg Tablet) 40 mg PO DAILY [facility] Last Admin: 06/30/22 08:04 Dose: 40 mg Carvedilol (Carvedilol 6.25 Mg Tablet) 6.25 mg PO BID [facility]; Protocol Last Admin: 06/30/22 21:10 Dose: 6.25 mg Clopidogrel Bisulfate (Clopidogrel Bisulfate 75 Mg Tablet) 75 mg PO DAILY [facility] Last Admin: 06/30/22 08:04 Dose: 75 mg Docusate Sodium (Docusate Sodium 100 Mg Capsule) 200 mg PO BID [facility] Last Admin: 06/30/22 21:10 Dose: 200 mg Famotidine (Famotidine 20 Mg Tablet) 20 mg PO BID [facility] Last Admin: 06/30/22 21:10 Dose: 20 mg Hydromorphone HCl (Hydromorphone Hcl 0.5 Mg/0.5 Ml Syringe) 0.5 mg IVPUSH Q2H PRN; Protocol PRN Reason: Pain, Severe (Pain Scale 7-10) Last Admin: 06/27/22 20:21 Dose: 0.5 mg Piperacillin Sod/Tazobactam (Sod 3.375 gm/ Sodium Chloride) 50 mls @ 100 mls/hr IV Q6H [facility] Last Infusion: 07/01/22 06:15 Dose: Infused Metronidazole (Flagyl) 500 mg in 100 mls @ 100 mls/hr IV Q8H [facility] Last Infusion: 07/01/22 07:23 Dose: Infused Multivitamins/Vitamin C (Multivitamin Tablet) 1 tab PO DAILY [facility] Last Admin: 06/30/22 08:04 Dose: 1 tab Nicotine (Nicotine 21 Mg Patch.Td24) 21 mg TRANSDERMA DAILY [facility] Last Admin: 06/30/22 09:51 Dose: 21 mg Ondansetron HCl (Ondansetron Hcl 4 Mg/2 Ml Vial) 4 mg IVPUSH Q6H PRN PRN Reason: Nausea and Vomiting Ondansetron HCl (Ondansetron Hcl 4 Mg/2 Ml Vial) 4 mg IVPUSH ONCE PRN PRN Reason: Nausea and Vomiting Oxycodone HCl (Oxycodone Hcl Immed Release 5 Mg Tablet) 5 mg PO Q4H PRN PRN Reason: Pain, Moderate (Pain Scale 4-6 Last Admin: 07/01/22 05:37 Dose: 5 mg Sacubitril/Valsartan (Sacubitril/Valsartan 1 Tab Tablet) 1 tab PO BID [facility]; Protocol Last Admin: 06/30/22 21:09 Dose: 1 tab Home Medications Medication Instructions Recorded Confirmed Last Taken Type aspirin 81 mg tablet,delayed 1 tab PO DAILY 06/23/22 06/23/22 Unknown History release atorvastatin 40 mg tablet 1 tab PO DAILY 06/23/22 06/23/22 Unknown History calcium carbonate 500 mg-vitamin 1 tab PO BID 06/23/22 06/23/22 Unknown History D3 5 mcg (200 unit) tablet (Oyster Shell Calcium-Vitamin D3) carvedilol 6.25 mg tablet 1 tab PO BID 06/23/22 06/23/22 Unknown History clopidogrel 75 mg tablet 1 tab PO DAILY 06/23/22 06/23/22 Unknown History ferrous sulfate 325 mg (65 mg 1 tab PO QAM 06/23/22 06/23/22 Unknown History iron) tablet (FeroSul) multivitamin 1 tab PO DAILY 06/23/22 06/23/22 Unknown History nicotine 21 mg/24 hr daily 1 patch topical DAILY 06/23/22 06/23/22 Unknown History transdermal patch sacubitril 24 mg-valsartan 26 mg 1 tab PO BID 06/23/22 06/23/22 Unknown History tablet (Entresto) tadalafil 5 mg tablet 1 tab PO DAILY PRN Sexual Activity 06/23/22 06/23/22 Unknown History Physical Exam Vital Signs: Vital Signs: Last Vital Signs Temp 98.3 F 07/01/22 03:28 Pulse 81 07/01/22 03:28 Resp 17 07/01/22 03:28 BP 125/74 07/01/22 03:28 Pulse Ox 96 07/01/22 03:28 O2 Del Method 07/01/22 03:28 O2 Flow Rate 2 06/25/22 00:00 BMI result Body Mass Index 22.4 Results Results Labs: Urine 06/22/22 Range/Units 20:16 Urine Color YELLOW Urine Appearance CLEAR Urine pH 6.0 (5.0-8.0) Ur Specific [place] 1.015 (1.005-1.025) Urine Protein NEG (NEG-TRACE) MG/DL Urine Glucose (UA) NEG (NEG) MG/DL Abdomen CT scan report/results: pending CT scan - pelvis: pending Assessment and Plan (1) Perforated appendix: Status: Acute (2) Tobacco abuse: Status: Acute (3) CAD (coronary artery disease): Status: Acute (4) Diffuse peritonitis: Status: Acute Plan CT of the abdomen and pelvis today with oral and IV contrast Patient has had persistent leukocytosis and intraoperatively had several interloop abscesses which were lysed. He is at risk for additional collection/abscess. NPO except meds Quality Stroke Does the patient have a stroke diagnosis?: No VTE Prior VTE?: No VTE Risk Level:: Surgical - high VTE Device Contraindication: N/A - Device Ordered VTE Drug Contraindication: N/A - Med Ordered
[2022-07-01 08:00] VITALS: BP 122/64; PULSE 56; RESP 18; TEMP 36.6; O2SAT 97
--- NOTE | 2022-07-01 08:24 | PM.PNGS ---
Subjective Subjective Date of Service: 07/01/22 Patient reports: no new complaints Interval history: Is seen with the help the freelance interpreter/translator. He denies any pain, is tolerating his diet and is moving his bowels. In reviewing the EMR, he has not had fevers nor tachycardia. His KEREN put out roughly 40 cc on day shift which is straw-colored fluid. Physical Exam Vital Signs: Vital Signs: Last Vital Signs Temp 97.9 F 07/01/22 08:00 Pulse 56 07/01/22 08:00 Resp 18 07/01/22 08:00 BP 122/64 07/01/22 08:00 Pulse Ox 97 07/01/22 08:00 O2 Del Method 07/01/22 08:00 O2 Flow Rate 2 06/25/22 00:00 BMI result Body Mass Index 22.4 The patient is nontoxic Abdomen is flat, soft and nontender KEREN remained straw, clear non purulence and non feculent Objective Data Active Medications Acetaminophen (Acetaminophen 325 Mg Tablet) 650 mg PO Q6H PRN PRN Reason: Pain, Mild (Pain Scale 1-3) Last Admin: 06/28/22 20:20 Dose: 650 mg Documented By: CAMRON Aspirin (Aspirin 81 Mg Tab.Chew) 81 mg PO DAILY [facility] Last Admin: 07/01/22 07:17 Dose: Not Given Documented By: JONAS Non-Admin Reason: Duplicate Order Aspirin (Aspirin Enteric Coated 81 Mg Tablet.) 81 mg PO DAILY [facility] Last Admin: 06/30/22 08:04 Dose: 81 mg Documented By: REGINE Atorvastatin Calcium (Atorvastatin Calcium 40 Mg Tablet) 40 mg PO DAILY [facility] Last Admin: 06/30/22 08:04 Dose: 40 mg Documented By: REGINE Carvedilol (Carvedilol 6.25 Mg Tablet) 6.25 mg PO BID [facility]; Protocol Last Admin: 06/30/22 21:10 Dose: 6.25 mg Documented By: SNOW Clopidogrel Bisulfate (Clopidogrel Bisulfate 75 Mg Tablet) 75 mg PO DAILY [facility] Last Admin: 06/30/22 08:04 Dose: 75 mg Documented By: REGINE Docusate Sodium (Docusate Sodium 100 Mg Capsule) 200 mg PO BID [facility] Last Admin: 06/30/22 21:10 Dose: 200 mg Documented By: SNOW Famotidine (Famotidine 20 Mg Tablet) 20 mg PO BID [facility] Last Admin: 06/30/22 21:10 Dose: 20 mg Documented By: SNOW Hydromorphone HCl (Hydromorphone Hcl 0.5 Mg/0.5 Ml Syringe) 0.5 mg IVPUSH Q2H PRN; Protocol PRN Reason: Pain, Severe (Pain Scale 7-10) Last Admin: 06/27/22 20:21 Dose: 0.5 mg Documented By: WASHINGTON Piperacillin Sod/Tazobactam (Sod 3.375 gm/ Sodium Chloride) 50 mls @ 100 mls/hr IV Q6H [facility] Last Infusion: 07/01/22 06:15 Dose: 0 mls/hr Documented By: SNOW Metronidazole (Flagyl) 500 mg in 100 mls @ 100 mls/hr IV Q8H [facility] Last Infusion: 07/01/22 07:23 Dose: 0 mls/hr Documented By: JONAS Multivitamins/Vitamin C (Multivitamin Tablet) 1 tab PO DAILY [facility] Last Admin: 06/30/22 08:04 Dose: 1 tab Documented By: REGINE Nicotine (Nicotine 21 Mg Patch.Td24) 21 mg TRANSDERMA DAILY [facility] Last Admin: 06/30/22 09:51 Dose: 21 mg Documented By: REGINE Ondansetron HCl (Ondansetron Hcl 4 Mg/2 Ml Vial) 4 mg IVPUSH Q6H PRN PRN Reason: Nausea and Vomiting Ondansetron HCl (Ondansetron Hcl 4 Mg/2 Ml Vial) 4 mg IVPUSH ONCE PRN PRN Reason: Nausea and Vomiting Oxycodone HCl (Oxycodone Hcl Immed Release 5 Mg Tablet) 5 mg PO Q4H PRN PRN Reason: Pain, Moderate (Pain Scale 4-6 Last Admin: 07/01/22 05:37 Dose: 5 mg Documented By: SNOW Sacubitril/Valsartan (Sacubitril/Valsartan 1 Tab Tablet) 1 tab PO BID [facility]; Protocol Last Admin: 06/30/22 21:09 Dose: 1 tab Documented By: SNOW Labs CBC & Chem 7: 07/01/22 08:46 06/28/22 05:08 Labs: today's wbc 12.3K Microbiology Microbiology Results: gray-sensitive E. coli & B-lactamase + Parabacteroides in OR culture Procedures Date of Service Date of Service: 07/01/22 Progress Note: A&P Assessment and plan (1) Diffuse peritonitis: Status: Acute (2) CAD (coronary artery disease): Status: Acute (3) Perforated appendix: Status: Acute (4) Tobacco abuse: Status: Acute Plan CT of the abdomen and pelvis today with oral and IV contrast Patient has had persistent leukocytosis and intraoperatively had several interloop abscesses which were lysed. He is at risk for additional collection/abscess. NPO except meds I reviewed the CT images and discussed the 2 x 4 cm pelvic collection between the rectum and bladder with Dr. Sanchez. Given the risk of percutaneous drainage, I have recommended an additional week of oral antibiotics and will discharge the patient. At the patient's request, I spoke to his sister by telephone and reviewed the plan with the hospital freelance interpreter/translator. The patient's questions seemed to be satisfactorily answered. Activity restrictions were also reviewed. The patient will minimize/abstain from nicotine, avoid any cocaine or other street drugs and will return for increasing pain, fevers or contact me with questions. Time Spent With Patient Time: Total time spent is greater than 50% in coordination of care (as documented) at patient's floor/unit and/or counseling patient: Quality Stroke Does the patient have a stroke diagnosis?: No VTE Prior VTE?: No VTE Risk Level:: Surgical - high VTE Device Contraindication: N/A - Device Ordered VTE Drug Contraindication: N/A - Med Ordered
[2022-07-01 08:53] LABS: MANUAL DIFF FLAG NO
[2022-07-01 08:56] LABS: Basophils Percent Auto 0.3 % (0-2); Eosinophils Absolute Auto 0.5 X10*3/uL (0.0-0.4); Eosinophils Percent Auto 3.6 % (0-4); Hematocrit 47.7 % (42.0-52.0); Hemoglobin 15.8 g/dl (14.0-18.0); Imm Gran Abs Auto 0.08 X10*3/uL (0.00-0.03); Imm Gran Pct Auto 0.6 % (0.0-0.4); Lymphocytes Absolute Auto 2.8 X10*3/uL (1.2-4.9); Lymphocytes Percent Auto 22.5 % (20-40); Mean Corpuscular HGB Conc 33.1 g/dl (31.0-36.0); Mean Corpuscular Hemoglobin 30.3 pg (27.0-33.0); Mean Corpuscular Volume 91.6 fL (80.0-98.0); Mean Platelet Volume 10.1 fL (9.4-12.4); Monocytes Absolute Auto 1.1 X10*3/uL (0.1-1.2); Monocytes Percent Auto 8.6 % (2-11); Neutrophils Absolute Auto 7.9 x10*3/uL (2.0-8.3); Neutrophils Percent Auto 64.4 % (45-73); Platelet Count 287 X10*3/uL (160-400); Red Blood Count 5.21 X10*6/uL (4.60-5.80); Red Cell Distribution Width 15.8 % (11.0-16.0); White Blood Count 12.3 X10*3/uL (4.8-10.8)
[2022-07-01] MEDS: Sacubitril/Valsartan 24/26 1 TAB TABLET PO (09:46)
[2022-07-01] MEDS: carvediloL 6.25 MG TABLET PO (09:46)
[2022-07-01] MEDS: Multivitamin TABLET 1 TAB PO (09:46)
[2022-07-01] MEDS: Docusate Sodium 100 MG CAPSULE 200 MG PO (09:46)
[2022-07-01] MEDS: Nicotine 21 MG PATCH.TD24 TRANSDERMA (09:47)
[2022-07-01] MEDS: Famotidine 20 MG TABLET PO (09:47)
[2022-07-01] MEDS: Clopidogrel Bisulfate 75 MG TABLET PO (09:47)
[2022-07-01] MEDS: Atorvastatin Calcium 40 MG TABLET PO (09:47)
[2022-07-01] MEDS: Aspirin Enteric Coated 81 MG TABLET.DR PO (09:47)
[2022-07-01] MEDS: Diatrizoate Meglumine, Sodium 30 ML SOLUTION PO (12:05)
[2022-07-01] MEDS: iohexoL 350 MG/ML 100 ML INFUS..BTL IV (12:05)
--- NOTE | 2022-07-01 13:02 | W.MHC.F2F ---
Service Date Service Date: 07/01/22 Encounter Date of encounter: 07/01/22 Reasons for Services Signs and symptoms assessed: KEREN drain, teach drain care & trending output for removal in the office Reason for care home: postoperative assessment and/or care, medication management and GI/ assessment Reason for physical therapy: home safety and mobility Homebound: Leaving the home is medically contraindicated at this time without the asist of a device and/or another person due th the listed conditions above and below. Reason homebound: weakness related to hospital stay Certification: Based on the above findings, I certify that this patient is confined to the home and needs intermittent care home care, physical therapy and/or speech therapy, or continues to need occupational therapy. The patient is under my care, and I have initiated the establishment of the plan of care. The patient will be followed by a physician who will periodically review the plan of care.
--- NOTE | 2022-07-01 13:09 | PM.DS ---
DS: Providers Provider Date of Service: 07/01/22 Date of admission: 06/22/22 23:53 Primary care physician: June Champion MD Consults: 06/23/22 08:03 Consult to Hospitalist Stat Consulting Provider: Hospitalist Reason For Exam: CAD, appendicitis; for OR. KS 04/30/22 drug-elud 06/28/22 12:32 Consult to Infectious Diseases Routine Consulting Provider: Staci Potts Reason for consultation: Parabacteroides peritonitis & persistent leukocytosis Has provider been notified: Yes DS: Diagnosis Discharge Diagnosis (1) Diffuse peritonitis: Status: Acute (2) CAD (coronary artery disease): Status: Acute (3) Perforated appendix: Status: Acute (4) Tobacco abuse: Status: Acute DS: Summary Hospital Course Hospital Course: The patient is a 57-year-old gentleman who presented with acute appendicitis that was perforated and had interloop abscesses in addition to diffuse peritonitis. Following an uneventful laparoscopic appendectomy with resection of the appendiceal stump, a KEREN drain was placed in the patient kept on bowel rest and placed on IV antibiotics until cultures demonstrated pansensitive E coli and Paraacteroides, that was beta lactamase positive. An Infectious Disease consultation was obtained and addition of Flagyl was recommended. The patient had improvement in bowel function and was tolerating a diet but had a persistently low white blood cell count around 12 K. on the day of discharge, a CT with oral and IV contrast demonstrated roughly 2 x 4 cm pelvic collection. In discussion with Dr. Sanchez, plan to discharge the patient on oral antibiotics and repeat a CT on an outpatient basis was planned. 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 Prescriptions were sent to his pharmacy. VNA is arranged. Overall condition at the time of discharge is improved. Time spent discussing smoking cessation with patient: more than 10 minutes Time Spent with Patient Time attestation: Total time spent providing and/or coordinating discharge services: Discharge coordination time: Greater than 30 minutes Quality: Safe Use of Opioids Does Pt have an Active Cancer Diagnosis on the Problem List?: No Quality: Stroke Does the patient have a stroke diagnosis?: No Physical Exam Vital Signs: Vital Signs: Last Vital Signs Temp 97.9 F 07/01/22 08:00 Pulse 56 07/01/22 08:00 Resp 18 07/01/22 08:00 BP 122/64 07/01/22 08:00 Pulse Ox 97 07/01/22 08:00 O2 Del Method 07/01/22 08:00 O2 Flow Rate 2 06/25/22 00:00 BMI result Body Mass Index 22.4 DS: Data Data Completed and Pending Completed studies during hospitalization [Text1]: Pending at discharge 06/23/22 13:16 Surgical [PTH] Routine Labs on day of discharge: Laboratory Results - last 24 hr 07/01/22 08:46 WBC 12.3 H RBC 5.21 Hgb 15.8 Hct 47.7 MCV 91.6 MCH 30.3 MCHC 33.1 RDW 15.8 Plt Count 287 MPV 10.1 Immature Gran % (Auto) 0.6 H Neut % (Auto) 64.4 Lymph % (Auto) 22.5 [place] % (Auto) 8.6 Eos % (Auto) 3.6 Baso % (Auto) 0.3 Lymph # (Auto) 2.8 [place] # (Auto) 1.1 Eos # (Auto) 0.5 H Baso # (Auto) 0.0 Abs Immat Gran (auto) 0.08 H Absolute Neuts (auto) 7.9 Absolute Nucleated RBC 0.000 Nucleated RBC % (auto) 0.0 Discharge Plan Discharge Patient Disposition: Home, Self-Care Discharge Diagnosis: Perforated appendicitis with diffuse peritonitis Coronary artery disease status post stent on Plavix Referrals: June Chamipon MD [Primary Care Provider] - 1 Week Manoj Ross MD [Physician] - 1 Week Discharge Medications: New metronidazole 500 mg Tablet 500 mg PO Q8H 7 Days Qty: 21 0RF amoxicillin-pot clavulanate 875-125 mg Tablet 875 mg PO Q12H Qty: 14 0RF Continued multivitamin Tablet 1 tab PO DAILY atorvastatin 40 mg tablet 1 tab PO DAILY carvedilol 6.25 mg tablet 1 tab PO BID clopidogrel 75 mg tablet 1 tab PO DAILY aspirin 81 mg tablet,delayed release (DR/EC) 1 tab PO DAILY ferrous sulfate [FeroSul] 325 mg (65 mg iron) tablet 1 tab PO QAM nicotine 21 mg/24 hr patch 24 hour 1 patch topical DAILY Rx Instructions: remove at bedtime as directed; do not smoke while using patch calcium carbonate-vitamin D3 [Oyster Shell Calcium-Vit D3] 500 mg-5 mcg (200 unit) tablet 1 tab PO BID Rx Instructions: with meals Entresto 24-26 mg tablet 1 tab PO BID Discontinued tadalafil 5 mg tablet 1 tab PO DAILY PRN (Reason: Sexual Activity) Diet: Regular diet Activity on Discharge: No heavy lifting Stand Alone Forms: Patient Portal Discharge page Activity Restrictions/Additional Instructions: You had a laparoscopic appendectomy performed by Dr. Ross. It is normal to feel some minor abdominal discomfort due to the gas from the operation, however if you develop severe pain in your abdomen or chest, fevers over 100F, vomiting and are unable to keep liquids down, you should contact Dr. Ross or report to the nearest emergency department. If your incisions become red, swollen and tender, draining pus or have problems, please contact Dr. Ross report to the nearest emergency department. If you have bandages on your incisions, leave them in place for 48 hours, then remove them. You can shower but not soak in a tub after removing the bandages. If there are paper tapes known as butterflies/Steri-Strips, leave them fall off on their own in 1-2 weeks. You do not need to put another bandage on your incisions and lesser clothing rubs or irritates your incisions. You cannot shower While the drain is in place and do not soak in a tub, go in a pool, or go swimming in a jiang pond or ocean. You do not need to replace a bandage on lesser clothing irritates the incision. You may find that pants with an elastic waist or suspenders are more comfortable than pants requiring a belt until your incisions completely heal. Because of the operation, you should not lift more than 20 lb for the next 4 weeks. Any strenuous activity such as lifting more than 20 lb, digging, yoga, any athletic activity, like running, soccer, or other strenuous activity, lifting heavy bags/groceries, swimming, martial arts, or other strenuous athletic activities can cause hernias. If you have any questions regarding a specific activity, please ask Dr. Ross. Avoiding strenuous activities will minimize the risk of incisional hernias. After a week, at your follow-up visit, Dr. Ross will discuss returning to work on light duty with you. Since you can perform light duty, you are not disable, but your employer may not allow you to return until you have no restrictions; it is up to you to discuss this issue, as we cannot disclose personal information. Please bring any paperwork to that follow-up appointment from your employer. Please note that you are not disabled and need to discuss your work restrictions for medical reasons with your employer. If you were prescribed an antibiotic, continue taking the medication as prescribed. The anesthesia from the operation and pain medicine will cause constipation. You can purchase [id number] stool softener known as Colace/docusate, 100 mg and take 2 tablets in the morning with breakfast and 2 tablets in the evening after dinner to minimize this problem. Even if you are not taking narcotics, the anesthesia can cause constipation. You do not need this medicine if your bowels are working okay without it. You can take [id number] Tylenol/acetaminophen with kpib-bih-yobjago naproxen or ibuprofen to help with pain. Ice packs are also allowed to minimize pain and swelling. You should eat a high-protein, high-fiber, low-fat diet to optimize healing. Please resume any preoperative medications unless otherwise directed by Dr. Ross. Please contact your primary care provider for a follow-up appointment in 2 weeks. Care Plan Goals: Resolution of infection with antibiotics; nicotine cessation Health Concerns: Risk for intra-abdominal abscess; substance abuse; history of cocaine induced KS Plan of Treatment: Antibiotic treatment of peritonitis; nicotine cessation; abstinence from cocaine and other drugs of abuse Assessment: Perforated appendicitis with diffuse peritonitis; history of cocaine induced KS with drug-eluting stent, and Plavix;
--- NOTE | 2022-07-01 13:40 | HO.PM.IMPN ---
Subjective Subjective Date of Service: 07/01/22 Interval History: Denies acute complaints, denies abdominal pain no fevers no chills, no acute events overnight tolerating diet, WBC gradually trending down. 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 Neck no JVD. CVS? regular rate rhythm, Respiratory lungs clear to auscultation, no respiratory distress, no wheeze, no rhonchi. Gastrointestinal abdomen soft, nontender, bowel sounds audible,no guarding , no rigidity Extremities no edema. Neuro nonfocal Skin no rash Psych appropriate affect Objective Data Active Medications Acetaminophen (Acetaminophen 325 Mg Tablet) 650 mg PO Q6H PRN PRN Reason: Pain, Mild (Pain Scale 1-3) Last Admin: 06/28/22 20:20 Dose: 650 mg Documented By: CAMRON Amoxicillin/Clavulanate Potassium (Amoxicillin/Potassium Clav 875 Mg Tablet) 875 mg PO Q12H [facility] Aspirin (Aspirin 81 Mg Tab.Chew) 81 mg PO DAILY [facility] Last Admin: 07/01/22 07:17 Dose: Not Given Documented By: JONAS Non-Admin Reason: Duplicate Order Aspirin (Aspirin Enteric Coated 81 Mg Tablet.Dr) 81 mg PO DAILY [facility] Last Admin: 07/01/22 09:47 Dose: 81 mg Documented By: JONAS Atorvastatin Calcium (Atorvastatin Calcium 40 Mg Tablet) 40 mg PO DAILY [facility] Last Admin: 07/01/22 09:47 Dose: 40 mg Documented By: JONAS Carvedilol (Carvedilol 6.25 Mg Tablet) 6.25 mg PO BID [facility]; Protocol Last Admin: 07/01/22 09:46 Dose: 6.25 mg Documented By: JONAS Clopidogrel Bisulfate (Clopidogrel Bisulfate 75 Mg Tablet) 75 mg PO DAILY [facility] Last Admin: 07/01/22 09:47 Dose: 75 mg Documented By: JONAS Docusate Sodium (Docusate Sodium 100 Mg Capsule) 200 mg PO BID [facility] Last Admin: 07/01/22 09:46 Dose: 200 mg Documented By: JONAS Famotidine (Famotidine 20 Mg Tablet) 20 mg PO BID [facility] Last Admin: 07/01/22 09:47 Dose: 20 mg Documented By: JONAS Hydromorphone HCl (Hydromorphone Hcl 0.5 Mg/0.5 Ml Syringe) 0.5 mg IVPUSH Q2H PRN; Protocol PRN Reason: Pain, Severe (Pain Scale 7-10) Last Admin: 06/27/22 20:21 Dose: 0.5 mg Documented By: [place] Metronidazole (Metronidazole 500 Mg Tablet) 500 mg PO Q8H [facility] Multivitamins/Vitamin C (Multivitamin Tablet) 1 tab PO DAILY [facility] Last Admin: 07/01/22 09:46 Dose: 1 tab Documented By: JONAS Nicotine (Nicotine 21 Mg Patch.Td24) 21 mg TRANSDERMA DAILY [facility] Last Admin: 07/01/22 09:47 Dose: 21 mg Documented By: JONAS Ondansetron HCl (Ondansetron Hcl 4 Mg/2 Ml Vial) 4 mg IVPUSH Q6H PRN PRN Reason: Nausea and Vomiting Ondansetron HCl (Ondansetron Hcl 4 Mg/2 Ml Vial) 4 mg IVPUSH ONCE PRN PRN Reason: Nausea and Vomiting Oxycodone HCl (Oxycodone Hcl Immed Release 5 Mg Tablet) 5 mg PO Q4H PRN PRN Reason: Pain, Moderate (Pain Scale 4-6 Last Admin: 07/01/22 05:37 Dose: 5 mg Documented By: SNOW Sacubitril/Valsartan (Sacubitril/Valsartan 1 Tab Tablet) 1 tab PO BID [facility]; Protocol Last Admin: 07/01/22 09:46 Dose: 1 tab Documented By: JONAS Labs CBC & Chem 7: 07/01/22 08:46 06/28/22 05:08 Labs: Laboratory Results - last 24 hr 08/22/22 08:46 MCV 91.6 MCH 30.3 MCHC 33.1 RDW 15.8 Plt Count 287 MPV 10.1 Immature Gran % (Auto) 0.6 H Neut % (Auto) 64.4 Lymph % (Auto) 22.5 [place] % (Auto) 8.6 Eos % (Auto) 3.6 Baso % (Auto) 0.3 Lymph # (Auto) 2.8 [place] # (Auto) 1.1 Eos # (Auto) 0.5 H Baso # (Auto) 0.0 Abs Immat Gran (auto) 0.08 H Absolute Neuts (auto) 7.9 Absolute Nucleated RBC 0.000 Nucleated RBC % (auto) 0.0 Assessment and Plan (1) CAD (coronary artery disease): Status: Acute (2) Appendicitis: Status: Acute Plan 57yo M admitted to surgery service for perforated acute appendicitis, underwent emergent appendectomy. PMHx notable for anterior STEMI for which he was at [facility] 04/30-05/02/22. A BARBRA was placed for a 100% LAD occlusion. He was started on DAPT [ASA + clopidogrel]. Echo showed ischemic cardiomyopathy with reduced LVEF of 20-30%. Medicine consult requested for management of comorbid conditions 1. CAD/ischemic cardiomyopathy/ chronic HFr EF - no symptoms of chest pain, no shortness of breath, no palpitation continue home medication Plavix/ASA, carvedilol , and Entresto Patient medically stable for discharge. 2.Peritonitis Status post appendectomy, less drainage from KEREN drain clinically stable, tolerating diet, no nausea, no vomiting, no abdominal pain , no fevers on IV Zosyn day 9, and iv Flagyl day 4, WBC slowly trending down CT abdomen and pelvis done this a.m. Dispo plan as per surgery 3.tobacco abuse - NRT, counseling done DVT prophylaxis with SCDs, LMWH when deemed safe by surgeon Disposition patient needs inpatient hospitalization due to persistent leukocytosis requiring iv antibiotics and need f/u imaging studies . Quality Stroke Does the patient have a stroke diagnosis?: No VTE Prior VTE?: No VTE Risk Level:: Surgical - high VTE Device Contraindication: N/A - Device Ordered VTE Drug Contraindication: N/A - Med Ordered
[2022-07-01 15:17] VITALS: BP 123/69; PULSE 69; RESP 19; TEMP 36.7; O2SAT 95
--- NOTE | 2022-07-01 16:08 | MHC.CM.PN ---
Patient has been medically cleared for discharge today; discharge disposition is Home with New VNA ([facility]). No IMM required.
== END 2022-07-01 18:01 | disposition home health service (06) | DRG 233 ==
LOC: HO.ED 06-23 00:03 → HO.EDOVER 06-23 00:32 → HO.S3 06-23 11:47
PROVIDERS: Hospitalist; Surgery; Admitting Provider Surgery; Emergency Provider Emergency Medicine Emergency Medical Services; PCP Student in an Organized Health Care Education/Training Program; Visit Provider Hospitalist
PROC: 0DTJ4ZZ Resection of Appendix, Percutaneous Endoscopic Approach (ICD-10-PCS; CPT 44970; principal; 2022-06-23 10:30)
DX: K35.21 Acute appendicitis with generalized peritonitis, with abscess (principal); I50.22 Chronic systolic (congestive) heart failure; F14.11 Cocaine abuse, in remission; I25.5 Ischemic cardiomyopathy; F17.210 Nicotine dependence, cigarettes, uncomplicated; I25.10 Atherosclerotic heart disease of native coronary artery without angina pectoris; Z20.822 Contact with and (suspected) exposure to COVID-19; Z71.6 Tobacco abuse counseling; I25.2 Old myocardial infarction; Z79.02 Long term (current) use of antithrombotics/antiplatelets; Z79.82 Long term (current) use of aspirin; Z79.899 Other long term (current) drug therapy
CPT/HCPCS: 36415; 74177; 80048; 80053; 81001; 83605; 83690; 85025; 85027; 87040; 87071; 87073; 87076; 87077; 87186; 87205; 87635; 88304; 93005; 96361; 96374; 96375; 99285; J1100; J1170; J1885; J2250; J2270; J2405; J2543; J2795; J3010; Q9967

== ENCOUNTER → 2022-08-07 09:17 | Outpatient (BNVA) | payer MEDICAID, SELFPAY | PROVIDERS: PCP Student in an Organized Health Care Education/Training Program; Visit Provider Internal Medicine | DX: I25.10 Atherosclerotic heart disease of native coronary artery without angina pectoris (principal); I25.5 Ischemic cardiomyopathy; F14.10 Cocaine abuse, uncomplicated; F17.210 Nicotine dependence, cigarettes, uncomplicated | CPT/HCPCS: 99202 ==

== ENCOUNTER → 2022-08-13 13:24 | Outpatient (BNVA) | payer MEDICAID, SELFPAY | PROVIDERS: PCP Student in an Organized Health Care Education/Training Program; Visit Provider Urology | DX: E29.1 Testicular hypofunction (principal); N52.01 Erectile dysfunction due to arterial insufficiency | CPT/HCPCS: 99212 ==

== ENCOUNTER → 2022-09-18 14:22 | Outpatient (REF) | payer MEDICAID, SELFPAY ==
--- NOTE | 2022-09-18 14:25 | CA_ITS ---
Transthoracic Echocardiogram Patient (Last, First, Middle): Jamie Tesfaye, Gender: Male Date of : 1965 Age: 57 Procedure Date: 09/18/2022 Procedure Type: Transthoracic Echocardiogram Location: OP Height: 170.18 cm Weight: 65.77 kg BSA: 1.76 m2 Heart Rate: 60 bpm BP: 100 / 64 mmHg Property Claims Manager: SANDRA Referring MD: Issac Cheatham MD Dog Hair Clipper: Willem Ly MD Symptoms: I25.5 - Ischemic cardiomyopathy Study Quality: Adequate ECG Rhythm: Sinus Conclusions: - 1. Normal LV systolic function with impaired relaxation filling pattern with underlying regional wall motion abnormality suggestive of coronary artery disease 2. Normal cardiac valvular Doppler 3. Normal RV systolic pressure 4. No gross pericardial effusion Findings Procedure Information Contrast agent, definity, is being given per protocol without apparent complications. Left Ventricle Normal left ventricular size, thickness, and systolic function. The visually estimated ejection fraction is between 55-60%. Spectral Doppler is indicative of an impaired relaxation filling pattern. E/E prime ratio is between 8 and 15 consistent with indeterminate filling pressures. Peak GLS is -16.9%, which is mildly reduced. Wall Motion Rest Echo Findings The apex, basal inferior, mid inferior, apical septum, and basal inferoseptal segments are hypokinetic. The mid inferoseptal and mid anteroseptal segments are akinetic. All other scored wall segments showed normal motion. Right Ventricle Normal right ventricular cavity size and systolic function. Atria Both atria are normal in size. There is no evidence of interatrial shunt. Aortic Valve Normal aortic valve structure and function. There is no aortic valve stenosis. There is no aortic valve regurgitation. Mitral Valve There is mild anterior and posterior mitral leaflet thickening. There is trace mitral valve regurgitation. There is no mitral valve stenosis. Pulmonic Valve The pulmonic valve was not well visualized. Tricuspid Valve Likely normal tricuspid valve structure and function. There is mild tricuspid valve regurgitation. The right ventricular systolic pressure is normal. The right ventricular systolic pressure is 32 mmHg. Normal right atrial pressure. There is no evidence of pulmonary hypertension. Great Vessels All visible segments of the aorta are normal in size. The pulmonary artery was not well visualized. Venous The inferior vena cava is normal in size and collapses greater than 50% with inspiration. Pericardium/Pleural There is no evidence of pericardial effusion. Prior Study Comparison No prior study available for comparison. Measurements 2D Linear Measurements IVSd: 0.71 0.6-0.9/0.6-1.0 cm LVIDd: 4.46 3.9-5.3/4.2-5.9 cm LVIDd Index: 2.53 2.4-3.2/2.2-3.1 cm/m2 LVIDs: 3.17 2.0-3.6 cm LVPWd: 0.82 0.7-1.1 cm LA Diam: 3.10 2.7-3.8/3.0-4.0 cm LAIDs Index: 1.76 1.5-2.3 cm/m2 LV Mass: 131.03 67-162/88-224 g LV Mass Index: 74.45 43-95/49-115 g/m2 LVOT Diam: 2.10 3.0+(-)1.3 cm 2D Systolic Function EF 4C: 61.70 >55% EF 2C: 54.40 >55% EF BiP: 57.90 >55% Mitral Valve MV Pk E: 0.64 MV PK A: 0.63 MV Decel Time: 192.00 E/A: 1.00 E'Lateral: 12.40 E'Medial: 10.00 E/E' Med: 6.40 E/E' Lat: 5.20 PHT: 56.00 MVA PHT: 3.93 Decel Sabine: 3.35 Aortic Valve AoV Pk Matthieu: 1.16 AoV Pk Grad: 5.00 GEOFFREY: 2.98 LVOT LVOT Pk Matthieu: 1.06 LVOT Mn Matthieu: 0.65 LVOT VTI: 0.20 LVOT Pk Grad: 4.00 LVOT Mn Grad: 2.00 LVOT Diam: 2.10 LVOT Area: 3.46 Diastolic Function MV Pk E: 0.64 MV Pk A: 0.63 E/A: 1.00 E'Medial: 10.00 E/E' Med: 6.40 E' Laterial: 12.40 E/E' Lat: 5.20 Right Ventricle TAPSE (mm): 23.00 TVS' Matthieu: 12.00 Tricuspid Valve TR Pk Matthieu: 2.45 TR Pk Grad: 24.00 RA Press: 8.00 RVSP: 32.00 Great Vessels Aorta Sinus of Valsalva: 2.90 2.0-3.5 cm Pulmonary Veins Pulm Vein S/D 1.20 Pulmonary Valve PV Pk Matthieu: 1.28 Peak PV Grad: 7.00 Updated in Other Vendor System with Status of Final Willem Ly MD electronically signed on 09/19/2022 8:35:52 AM with status of Final
== END ==
LOC: HO.CARD 14:22
PROVIDERS: PCP Student in an Organized Health Care Education/Training Program; Visit Provider Internal Medicine
DX: I25.5 Ischemic cardiomyopathy (principal)
CPT/HCPCS: 93306; 93356; Q9957

== ENCOUNTER → 2022-09-24 13:25 | Outpatient (BNVA) | payer MEDICAID, SELFPAY | PROVIDERS: PCP Student in an Organized Health Care Education/Training Program; Referring Provider Student in an Organized Health Care Education/Training Program; Visit Provider Nurse Practitioner Family | DX: I25.10 Atherosclerotic heart disease of native coronary artery without angina pectoris (principal); I25.5 Ischemic cardiomyopathy; F14.10 Cocaine abuse, uncomplicated; F17.210 Nicotine dependence, cigarettes, uncomplicated; Z98.890 Other specified postprocedural states | CPT/HCPCS: 99212 ==

== ENCOUNTER 2023-02-27 17:19 | Outpatient (REF) | payer MEDICAID, SELFPAY ==
[2023-02-27 18:31] LABS: Prostate Specific Antigen 1.63 ng/mL (<0.05-4.0)
== END 2023-02-27 17:20 | disposition home or self-care (01) ==
LOC: HO.LAB 17:19
PROVIDERS: Urology; Visit Provider Nurse Practitioner Family
DX: Z12.5 Encounter for screening for malignant neoplasm of prostate (principal)
CPT/HCPCS: 36415; 84153

== ENCOUNTER → 2023-03-25 12:42 | Outpatient (BNVA) | payer MEDICAID, SELFPAY | PROVIDERS: PCP Student in an Organized Health Care Education/Training Program; Referring Provider Student in an Organized Health Care Education/Training Program; Visit Provider Nurse Practitioner Family | DX: F14.10 Cocaine abuse, uncomplicated (principal); I21.09 ST elevation (STEMI) myocardial infarction involving other coronary artery of anterior wall; I50.20 Unspecified systolic (congestive) heart failure; I25.119 Atherosclerotic heart disease of native coronary artery with unspecified angina pectoris; I25.5 Ischemic cardiomyopathy; I11.0 Hypertensive heart disease with heart failure; F17.210 Nicotine dependence, cigarettes, uncomplicated; Z98.890 Other specified postprocedural states | CPT/HCPCS: 93005; 99212 ==

== ENCOUNTER 2023-03-28 07:37 | Outpatient (REF) | payer MEDICAID, SELFPAY ==
[2023-03-28 08:43] LABS: Alanine Aminotransferase 36 U/L (0-40); Albumin Level 3.8 g/dL (3.5-5.0); Alkaline Phosphatase 106 U/L (39-117); Anion Gap 14 (12-20); Aspartate Amino Transferase 36 U/L (5-37); Bilirubin Total 0.6 mg/dL (0.0-1.0); Blood Urea Nitrogen 14 mg/dL (9-16); Calcium 9.3 mg/dL (8.4-10.2); Carbon Dioxide 26 mmol/L (22-29); Chloride 110 mmol/L (96-108); Cholesterol 104 mg/dL; Estimated Glomerular Filt Rate > 60; Glucose Fasting 90 mg/dL (60-99); HDL Cholesterol 25 mg/dL; LDL Cholesterol Calculated 68 mg/dl; Potassium 5.2 mmol/L (3.3-5.1); Sodium 145 mmol/L (135-145); Total Protein 6.3 g/dL (6.5-8.0); Triglycerides 58 mg/dL
== END 2023-03-28 07:38 | disposition home or self-care (01) ==
LOC: HO.LAB 07:37
PROVIDERS: PCP Student in an Organized Health Care Education/Training Program; Visit Provider Nurse Practitioner Family
DX: I25.10 Atherosclerotic heart disease of native coronary artery without angina pectoris (principal)
CPT/HCPCS: 36415; 80053; 80061

== ENCOUNTER → 2023-04-01 10:55 | Outpatient (BNVA) | payer MEDICAID, SELFPAY | PROVIDERS: PCP Student in an Organized Health Care Education/Training Program; Visit Provider Urology ==